=== PATIENT | female | born 1955 | race Caucasian/White ===

== ENCOUNTER → 2018-07-18 15:34 | Outpatient (CLI) | payer OTHER, SELFPAY ==
--- NOTE | 2018-07-18 15:37 | BI_ITS ---
MAMMOGRAPHY - BILATERAL SCREENING REASON FOR EXAM: Female, 62 years old. Routine annual screening examination. PERTINENT HISTORY: Sister with breast cancer. History of right breast implant. TECHNIQUE: Digital bilateral breast chitra (3D mammographic acquisition) in the CC and MLO projections. 2-D mediolateral oblique (MLO) and craniocaudad (CC) views of both breasts were obtained. CAD: Full Field Digital Mammography with Computer Added Detection was performed. COMPARISON: Comparison is made with prior study dated July 17, 2017 and July 12, 2016. FINDINGS: Breast Composition: The breasts are heterogeneously dense, which may obscure small masses. There are no dominant masses or suspicious calcifications. Stable appearance of the right breast implant. No other significant abnormalities are identified. There has been no significant change since the prior study. BI/SCREENING MAMM (CAD), BILAT IMPRESSION: Stable bilateral screening mammogram. Yearly follow-up mammogram recommended. (A) ASSESSMENT CATEGORY: BIRADS Category 2: Benign. A letter regarding these results will be sent to the patient by the facility within 30 days. Approximately 10% of breast cancers are not detected by mammography. A normal mammogram should not delay biopsy of a clinically suspicious abnormality. [id number] Electronically Signed: Adriano De La Cruz MD at 8:40 EST Tel [phone], Service support ,
== END ==
PROVIDERS: Family Provider Family Medicine; PCP Family Medicine; Referring Provider Obstetrics & Gynecology; Visit Provider Obstetrics & Gynecology
DX: Z12.31 Encounter for screening mammogram for malignant neoplasm of breast (principal)
CPT/HCPCS: 77063; 77067

== ENCOUNTER → 2019-07-25 10:13 | Outpatient (CLI) | payer OTHER, SELFPAY ==
--- NOTE | 2019-07-25 10:26 | BI_ITS ---
MAMMOGRAPHY - BILATERAL SCREENING REASON FOR EXAM: Female, 63 years old. Routine annual screening examination. PERTINENT HISTORY: Sister with breast cancer. Bilateral breast implants. Prior rupture of the left breast. TECHNIQUE: Digital bilateral breast tatiana (3D mammographic acquisition) in the CC and MLO projections. 2-D mediolateral oblique (MLO) and craniocaudad (CC) views of both breasts were obtained. CAD: Full Field Digital Mammography with Computer Added Detection was performed. COMPARISON: Comparison is made with prior study dated July 18, 2018. FINDINGS: Breast Composition: The breasts are heterogeneously dense, which may obscure small masses. There are no dominant masses or suspicious calcifications. The right breast implant is unremarkable. The left breast implant is not seen at this time. No other significant abnormalities are identified. There has been no significant change since the prior study. BI/SCREEN MAMM (CAD) W/TATIANA BILAT IMPRESSION: Stable bilateral screening mammogram. Yearly follow-up mammogram recommended. (A) ASSESSMENT CATEGORY: BIRADS Category 2: Benign. A letter regarding these results will be sent to the patient by the facility within 30 days. Approximately 10% of breast cancers are not detected by mammography. A normal mammogram should not delay biopsy of a clinically suspicious abnormality. [id number] Electronically Signed: Adriano De La Cruz, at 14:25 EST , Service support ,
== END ==
PROVIDERS: Family Provider Family Medicine; PCP Family Medicine; Referring Provider Obstetrics & Gynecology; Visit Provider Obstetrics & Gynecology
DX: Z12.31 Encounter for screening mammogram for malignant neoplasm of breast (principal)
CPT/HCPCS: 77063; 77067

== ENCOUNTER → 2020-07-27 16:12 | Outpatient (CLI) | payer OTHER, SELFPAY ==
--- NOTE | 2020-07-27 16:14 | BI_ITS ---
MAMMOGRAPHY - BILATERAL SCREENING REASON FOR EXAM: Female, 64 years old. Routine annual screening examination. PERTINENT HISTORY: Breast survey exam TECHNIQUE: Digital bilateral breast tatiana (3D mammographic acquisition) in the CC and MLO projections. 2-D mediolateral oblique (MLO) and craniocaudad (CC) views of both breasts were obtained. CAD: Full Field Digital Mammography with Computer Added Detection was performed. COMPARISON: Previous mammogram obtained on 07/25/2019 FINDINGS: Breast Composition: Dense There are no dominant masses or suspicious calcifications. No other significant abnormalities are identified. The patient has bilateral breast implants however 1 breast implant on the left as burst and is not visible on these mammogram images. The breast implant on the right is expanded. BI/SCREEN MAMM (CAD) W/TATIANA BILAT IMPRESSION: Stable bilateral screening mammogram. Yearly follow-up mammogram recommended. (A) ASSESSMENT CATEGORY: BIRADS Category 2: Benign. A letter regarding these results will be sent to the patient by the facility within 30 days. Approximately 10% of breast cancers are not detected by mammography. A normal mammogram should not delay biopsy of a clinically suspicious abnormality. [id number] Electronically Signed: Herve Zapien, at 17:51 EST Tel , Service support ,
== END ==
PROVIDERS: PCP Family Medicine; Referring Provider Student in an Organized Health Care Education/Training Program; Visit Provider Student in an Organized Health Care Education/Training Program
DX: Z12.31 Encounter for screening mammogram for malignant neoplasm of breast (principal)
CPT/HCPCS: 77063; 77067

== ENCOUNTER → 2020-08-05 15:53 | Outpatient (CLI) | payer OTHER, SELFPAY ==
--- NOTE | 2020-08-05 16:12 | BD_ITS ---
STUDY: DUAL ENERGY X-RAY ABSORPTIOMETRY / DXA REASON FOR EXAM: Female, 64 years old. Pat is unsure of meredith age. Pat is 134.2# and 65 and quot; a loss of 2'' per pat. Currently on premprim cream. Takes 500 mg of calcium and a multi-vit. Does a little to no exercise. Hx of a right hip replacement. TECHNIQUE: Bone Mineral Density (BMD) measurements of lumbar spine and left hip were obtained. COMPARISON: Comparison is made with prior study dated 01/26/2009. FINDINGS: Lumbar Spine (L1-L4): g/cm2 (0.795) / T-score (-3.2) / Z-score (-1.7) Findings are suggestive of osteoporosis with a high fracture risk. Increased thoracic kyphosis. Left Femur Total: g/cm2 (0.702) / T-score (-2.4) / Z-score (-1.3) Left Femoral Neck: g/cm2 (0.737) / T-score (-2.2) / Z-score (-0.8) The T-Scores on the most recent prior examination were: Lumbar Spine (L1-L4): There has been worsening of bone density since the previous examination. Left Femur Total: which represents a worsening of 26.6%. BD/Dexa Bone Density Study IMPRESSION: The patient is considered osteoporotic as outlined below according to World Michael Organization (WHO) criteria with a high fracture risk. There has been worsening of bone density since the previous examination. Reference Information: The T-score is the number of standard deviations above or below the standard which is normal for young adults at their peak bone mineral density. The World Health Organization (WHO) interprets the T-scores as follows: Above -1 Normal bone density Between -1 and -2.5 Osteopenia Equal to / or below -2.5 Osteoporosis As a practical clinical guideline, osteopenia may be graded as follows: Mild -1 through -1.5 Moderate -1.6 through -2.0 Severe -2.1 through -2.4 The Z-score is the number of standard deviations above or below age-matched controls. A Z-score of less than -1.5 would be considered abnormal. References: 1. NIH Osteoporosis and Related Bone Diseases www osteo.org 2. International Society for Clinical Densitometry www iscd.org 3. National Osteoporosis Foundation www nof.org Electronically Signed: Adriano De La Cruz, at 8:40 EST , Service support ,
== END ==
PROVIDERS: PCP Family Medicine; Referring Provider Student in an Organized Health Care Education/Training Program; Visit Provider Student in an Organized Health Care Education/Training Program
DX: M81.0 Age-related osteoporosis without current pathological fracture (principal); Z78.0 Asymptomatic menopausal state; Z96.641 Presence of right artificial hip joint
CPT/HCPCS: 77080

== ENCOUNTER → 2020-10-18 10:39 | Outpatient (CLI) | payer OTHER, SELFPAY ==
[2020-10-18 12:09] LABS: AST(SGOT) 32 U/L (15-37); Alanine Aminotransfer ALT/SGPT 48 U/L (13-56); Albumin, Serum 3.8 g/dL (3.2-5.0); Alkaline Phosphatase 82 U/L (45-117); Anion Gap 6 (5-15); BUN 14 mg/dL (7-18); BUN/Creat Ratio 16.7 RATIO (10-20); Calcium,Total 8.7 mg/dL (8.5-10.1); Chloride 106 mmol/L (98-107); Creatinine, Serum 0.84 mg/dL (0.55-1.02); EST Glomerular Filtration Rate 73 mL/min (>60); Est Glom Filt Rate - Afr Amer 88 mL/min (>60); Globulin 3.9 g/dL (2.2-4.2); Glucose 63 mg/dL (74-106); Potassium 4.1 mmol/L (3.5-5.1); Protein, Total 7.7 g/dL (6.4-8.2); Sodium Level 138 mmol/L (136-145); Vitamin D,25 Hydroxy 28.2 ng/mL
== END ==
PROVIDERS: PCP Family Medicine; Visit Provider Student in an Organized Health Care Education/Training Program
DX: M81.0 Age-related osteoporosis without current pathological fracture (principal)
CPT/HCPCS: 36415; 80053; 82306

== ENCOUNTER → 2021-02-08 08:52 | Outpatient (CLI) | payer OTHER, SELFPAY ==
--- NOTE | 2021-02-08 09:00 | US_ITS ---
STUDY: ULTRASOUND BREAST - RIGHT REASON FOR EXAM: Female, 65 years old. Palpable lump in the right breast. History of bilateral breast implants. TECHNIQUE: Axial and longitudinal images of the RIGHT breast were performed with a high resolution ultrasound transducer. # OF IMAGES: 13 COMPARISON: Comparison is made with prior mammogram done earlier today. FINDINGS: RIGHT Breast: The palpable abnormality corresponds to a 1.1 cm x 1.3 cm x 0.4 cm well-defined hypodense solid nodule at the 9:30 position the breast at 3 cm from the nipple. This most likely represents a small benign-appearing lymph node. US/Breast Limited Unilateral IMPRESSION: The palpable abnormality corresponds to 1.1 cm x 1.3 cm x 0.4 cm well-defined hypodense solid nodule at the 9:30 position of the breast at 3 cm from the nipple. This appears to be a benign appearing lymph node. ASSESSMENT CATEGORY: BIRADS Category 2: Benign. A letter regarding these results will be sent to the patient by the facility within 30 days. Electronically Signed: Adriano De La Cruz MD at 10:34 EDT , Service support ,
--- NOTE | 2021-02-08 09:00 | BI_ITS ---
MAMMOGRAPHY - UNILATERAL DIAGNOSTIC: RIGHT BREAST REASON FOR EXAM: Female, 65 years old. Right breast lump. PERTINENT HISTORY: Sister with breast cancer. Bilateral breast implants and prior rupture of the left breast implant. TECHNIQUE: Digital unilateral breast chitra (3D mammographic acquisition) in the CC and MLO projections. 2-D mediolateral oblique (MLO) and craniocaudad (CC) views of both breasts were obtained. CAD: Full Field Digital Mammography with Computer Added Detection was performed. COMPARISON: Comparison is made with prior study dated 07/27/2020 and 07/25/2019. FINDINGS: Breast Composition: The breasts are heterogeneously dense, which may obscure small masses. There are no dominant masses or suspicious calcifications. Stable appearance of the right breast implant. No other significant abnormalities are identified. There has been no significant change since the prior study. BI/DIAG MAMM W/CAD, UNILAT IMPRESSION: Stable unilateral diagnostic mammogram. With the patient''s history of a palpable lump in the right breast, correlation with ultrasound is recommended. ASSESSMENT CATEGORY: BIRADS Category 0: Incomplete. Need additional imaging evaluation. A letter regarding these results will be sent to the patient by the facility within 30 days. Approximately 10% of breast cancers are not detected by mammography. A normal mammogram should not delay biopsy of a clinically suspicious abnormality. Electronically Signed: Adriano De La Cruz MD at 11:10 EDT , Service support ,
== END ==
PROVIDERS: PCP Family Medicine; Referring Provider Student in an Organized Health Care Education/Training Program; Visit Provider Student in an Organized Health Care Education/Training Program
DX: N63.11 Unspecified lump in the right breast, upper outer quadrant (principal); Z98.82 Breast implant status; Z80.3 Family history of malignant neoplasm of breast
CPT/HCPCS: 76642; 77061; 77065; G0279

== ENCOUNTER → 2021-07-25 13:12 | Outpatient (CLI) | payer OTHER, SELFPAY ==
--- NOTE | 2021-07-25 13:14 | BI_ITS ---
MAMMOGRAPHY - BILATERAL SCREENING 3-D TOMOSYNTHESIS REASON FOR EXAM: Female, 65 years old. SCREENING PERTINENT HISTORY: No significant family history. Implants TECHNIQUE: 2-D mammograms and 3-D Tomosynthesis of the breast (s) were performed, along with implant displaced views. CAD was performed. COMPARISON: 07/27/2020 FINDINGS: The breast composition is composed of scattered fibroglandular density. Scattered benign calcifications are seen. No dense spiculated masses or suspicious microcalcifications are identified. No architectural distortion is identified. There is no skin thickening or retraction. There has been no significant change since the prior study. Right breast implant is free of complication, there has apparently been previous rupture of the left breast implant which is not visualized on this current study BI/SCRN MAMM (CAD)W/TATIANA BILAT IMPRESSION: No mammographic signs of malignancy. Routine yearly mammograms recommended. ASSESSMENT CATEGORY: BIRADS Category 2: Benign. A letter regarding these results will be sent to the patient by the facility within 30 days. FOLLOW UP RECOMMENDATION: Yearly follow up mammogram recommended. (A) Approximately 10% of breast cancers are not detected by mammography. A normal mammogram should not delay biopsy of a clinically suspicious abnormality. Electronically Signed: Juna Draper MD at 15:24 EST , Service support ,
== END ==
PROVIDERS: PCP Family Medicine; Referring Provider Student in an Organized Health Care Education/Training Program; Visit Provider Student in an Organized Health Care Education/Training Program
DX: Z12.31 Encounter for screening mammogram for malignant neoplasm of breast (principal)
CPT/HCPCS: 77063; 77067

== ENCOUNTER 2021-09-29 13:59 | Outpatient (CLI) | payer OTHER, SELFPAY ==
[2021-09-29 16:47] LABS: Vitamin D,25 Hydroxy 53.3 ng/mL
== END 2021-09-29 23:59 | disposition short-term general hospital (02) ==
PROVIDERS: PCP Family Medicine; Visit Provider Student in an Organized Health Care Education/Training Program
DX: M81.0 Age-related osteoporosis without current pathological fracture (principal)
CPT/HCPCS: 36415; 82306

== ENCOUNTER → 2022-06-02 | Outpatient (CLI) | payer OTHER, SELFPAY ==
[2022-06-02 09:55] LABS: Absolute Lymphocyte Count 1.33 X10^3/uL (0.83-4.51); Basophil# 0.05 X10^3/uL; Basophil% 1.3 % (0-1); Eosinophil# 0.12 X10^3/uL; Eosinophils% 3.1 % (0-5); Hematocrit 41.1 % (37-47); Hemoglobin 13.8 g/dL (12.0-15.0); Lymphocyte # 1.33 X10^3/ul (0.83-4.51); Mean Corp Hgb Conc 33.6 g/dL (32-36); Mean Corpuscular Hgb 30.2 pg (27.0-32.0); Mean Corpuscular Volume 89.9 fL (81-99); Mean Platelet Vol. 11.1 fl (6.2-12.0); Monocyte# 0.41 X10^3/uL; Monocyte% 10.5 % (0-10); NRBC Flagged by Analyzer 0 % (0-5); Neutrophil # 1.99 X10^3/uL (2.7-7.7); Neutrophil % 50.8 % (47-70); Platelet Count 330 K/mm3 (150-450); RBC Distribution Width CV 12.6 % (11.6-14.6); RBC Distribution Width SD 41.4 fl (35.1-43.9); Red Blood Count 4.57 M/mm3 (4.2-5.4); White Blood Count 3.9 K/mm3 (4.4-11.0)
[2022-06-02 10:17] LABS: Hemoglobin A1c 5.2 % (3.8-5.6)
[2022-06-02 10:22] LABS: Vitamin D,25 Hydroxy 38.7 ng/mL
[2022-06-02 10:51] LABS: ALB/GLOB Ratio 0.9 RATIO (0.9-2.4); AST(SGOT) 31 U/L (15-37); Alanine Aminotransfer ALT/SGPT 51 U/L (13-56); Albumin, Serum 3.7 g/dL (3.2-5.0); Alkaline Phosphatase 83 U/L (45-117); Anion Gap 8 (5-15); BUN 12 mg/dL (7-18); BUN/Creat Ratio 14.9 RATIO (10-20); Calcium,Total 8.8 mg/dL (8.5-10.1); Chloride 107 mmol/L (98-107); Cholesterol 199 mg/dL (200); Creatinine, Serum 0.81 mg/dL (0.55-1.02); EST Glomerular Filtration Rate 76 mL/min (>60); Est Glom Filt Rate - Afr Amer 92 mL/min (>60); Globulin 3.9 g/dL (2.2-4.2); Glucose 91 mg/dL (74-106); High Density Lipoprotein 53 mg/dL; Protein, Total 7.6 g/dL (6.4-8.2); Sodium Level 138 mmol/L (136-145); Thyroid Stim Hormone (TSH) 1.43 uIU/mL (0.358-3.74); Triglycerides 78 mg/dL; Very Low Density Lipoprotein 16 mg/dL (5-40)
== END | disposition home or self-care (01) ==
LOC: MFPLAB 09:08
PROVIDERS: PCP Family Medicine; Referring Provider Family Medicine; Visit Provider Family Medicine
DX: Z00.00 Encounter for general adult medical examination without abnormal findings (principal); Z13.0 Encounter for screening for diseases of the blood and blood-forming organs and certain disorders involving the immune mechanism; Z13.1 Encounter for screening for diabetes mellitus; Z13.220 Encounter for screening for lipoid disorders; Z13.29 Encounter for screening for other suspected endocrine disorder; M81.0 Age-related osteoporosis without current pathological fracture
CPT/HCPCS: 36415; 80053; 80061; 82306; 83036; 84443; 85025

== ENCOUNTER → 2022-11-07 | Outpatient (CLI) | payer OTHER, SELFPAY ==
--- NOTE | 2022-11-07 15:21 | BI_ITS ---
MAMMOGRAPHY - BILATERAL SCREENING REASON FOR EXAM: Female, 67 years old. Routine annual screening examination. PERTINENT HISTORY: Sister with breast cancer. Implants have been removed as compared to prior study. TECHNIQUE: Digital bilateral breast tatiana (3D mammographic acquisition) in the CC and MLO projections. 2-D mediolateral oblique (MLO) and craniocaudad (CC) views of both breasts were obtained. CAD: Full Field Digital Mammography with Computer Added Detection was performed. COMPARISON: Comparison is made with prior study July 25, 2021 and February 08, 2021. FINDINGS: Breast Composition: The breasts are extremely dense, which lowers the sensitivity of mammography. There are no dominant masses or suspicious calcifications. Since prior study, left breast implant has been removed. No other significant abnormalities are identified. There has been no significant change since the prior study. BI/SCRN MAMM (CAD)W/TATIANA BILAT IMPRESSION: Stable bilateral screening mammogram. Yearly follow-up mammogram recommended. (A) ASSESSMENT CATEGORY: BIRADS Category 2: Benign. A letter regarding these results will be sent to the patient by the facility within 30 days. Approximately 10% of breast cancers are not detected by mammography. A normal mammogram should not delay biopsy of a clinically suspicious abnormality. [id number] Electronically Signed: Adriano De La Cruz MD at 17:37 EST ,
--- NOTE | 2022-11-07 15:30 | BD_ITS ---
STUDY: DUAL ENERGY X-RAY ABSORPTIOMETRY / DXA REASON FOR EXAM: Female, 67 years old. [id number] TECHNIQUE: Bone Mineral Density (BMD) measurements of lumbar spine and left hip were obtained. COMPARISON: Comparison is made with prior study of August 05, 2020. FINDINGS: Lumbar Spine (L1-L4): g/cm2 (0.663) / T-score (-3.5) / Z-score (-1.7) Findings are suggestive of osteoporosis with a high fracture risk. Left Femur Total: g/cm2 (0.650) / T-score (-2.4) / Z-score (-1.1) Left Femoral Neck: g/cm2 (0.600) / T-score (-2.2) / Z-score (-0.7) The T-Scores on the most recent prior examination were: Lumbar Spine (L1-L4): There has been worsening of bone density since the previous examination. Left Femur Total: which represents an improvement of 0.8%. BD/Dexa Bone Density Study IMPRESSION: The patient is considered osteoporotic as outlined below according to World Michael Organization (WHO) criteria with a high fracture risk Reference Information: The T-score is the number of standard deviations above or below the standard which is normal for young adults at their peak bone mineral density. The World Health Organization (WHO) interprets the T-scores as follows: Above -1 Normal bone density Between -1 and -2.5 Osteopenia Equal to / or below -2.5 Osteoporosis As a practical clinical guideline, osteopenia may be graded as follows: Mild -1 through -1.5 Moderate -1.6 through -2.0 Severe -2.1 through -2.4 The Z-score is the number of standard deviations above or below age-matched controls. A Z-score of less than -1.5 would be considered abnormal. References: 1. NIH Osteoporosis and Related Bone Diseases www osteo.org 2. International Society for Clinical Densitometry www iscd.org 3. National Osteoporosis Foundation www nof.org Electronically Signed: Adriano De La Cruz MD at 16:57 EST ,
== END | disposition home or self-care (01) ==
PROVIDERS: PCP Family Medicine; Visit Provider Family Medicine
DX: Z12.31 Encounter for screening mammogram for malignant neoplasm of breast (principal); M81.0 Age-related osteoporosis without current pathological fracture; Z80.3 Family history of malignant neoplasm of breast
CPT/HCPCS: 77063; 77067; 77080

== ENCOUNTER → 2024-07-22 | Outpatient (CLI) | payer MEDICARE, SELFPAY ==
[2024-07-22 11:36] LABS: AST(SGOT) 25 U/L (15-37); Alanine Aminotransfer ALT/SGPT 30 U/L (13-56); Albumin, Serum 3.9 g/dL (3.2-5.0); Alkaline Phosphatase 74 U/L (45-117); Anion Gap 3 (5-15); BUN 19 mg/dL (7-18); BUN/Creat Ratio 23.7 RATIO (10-20); Calcium,Total 9.2 mg/dL (8.5-10.1); Chloride 104 mmol/L (98-107); EST Glomerular Filtration Rate 76 mL/min (>60); Est Glom Filt Rate - Afr Amer 92 mL/min (>60); Globulin 3.9 g/dL (2.2-4.2); Glucose 82 mg/dL (74-106); Lipase 62 U/L (13-75); Potassium 4.2 mmol/L (3.5-5.1); Protein, Total 7.8 g/dL (6.4-8.2); Sodium Level 134 mmol/L (136-145)
[2024-07-23 15:08] LABS: Deamidated Gliadin IgA >150 units (0-19); Deamidated Gliadin IgG 113 units (0-19); Endomysial Antibody IgA Positive (Negative); Immunoglobulin A 315 mg/dL (87-352); t-Transglutaminase IgA 53 U/mL (0-3)
[2024-07-27 13:06] LABS: Beef <0.10 kU/L (Class 0); Chocolate <0.10 kU/L (Class 0); Codfish <0.10 kU/L (Class 0); Corn <0.10 kU/L (Class 0); Egg, Whole <0.10 kU/L (Class 0); Milk (Cow) <0.10 kU/L (Class 0); Mussels <0.10 kU/L (Class 0); Peanut <0.10 kU/L (Class 0); Pork <0.10 kU/L (Class 0); Salmon <0.10 kU/L (Class 0); Shrimp <0.10 kU/L (Class 0); Soybean <0.10 kU/L (Class 0); Tuna <0.10 kU/L (Class 0); Wheat <0.10 kU/L (Class 0)
== END | disposition home or self-care (01) ==
PROVIDERS: PCP Nurse Practitioner Adult Health; Referring Provider Student in an Organized Health Care Education/Training Program; Visit Provider Student in an Organized Health Care Education/Training Program
DX: K90.0 Celiac disease (principal)
CPT/HCPCS: 36415; 80053; 82784; 83516; 83690; 86003; 86005; 86255

== ENCOUNTER 2024-09-16 11:44 | Day surgery (SDC) | payer MEDICARE, SELFPAY ==
[2024-09-16] VITALS (8 sets, daily range): BP systolic 98–122; BP diastolic 74–84; PULSE 73–88; RESP 16–18; TEMP 36.4–37; O2SAT 95–100; BMI 20.2
--- NOTE | 2024-09-16 13:00 | EGD_PTH ---
PATIENT: RAMAN CLAYTON LOC: EN U#:[id number] AGE/SX: 68/F ROOM: RE09/16/[address]: Dr. Marcelo Wood DO : 1955 BED: DIS: 09/16/2024 SPEC #: [id number] RECD: 09/16/24 14:11 STATUS: REJI ALIE #: [id number] MIRIAM: 09/16/24 13:[address]: Marcelo Wood DEPT: SURGICAL PATHOLOGY RECD BY: Alyssa Storm ENTERED: 09/17/24 09:55 SP TYPE: EGD BIOPSY OT DR: ELIUD DE LA ROSA Tissues: Duodenum, NOS Procedures: Surgery Specimen Level IV HEADER OPERATION: EGD with biopsy and dilatation PRE-OP DIAGNOSIS: Celiac disease TISSUE SUBMITTED: Duodenum biopsy MICROSCOPIC DIAGNOSIS Duodenum, biopsy: Fragments of duodenal mucosa with changes suggestive of celiac disease. See microscopic description and comment. SJ 09/18/2024 COMMENT Correlation with clinical, laboratory, endoscopic findings and appropriate follow up are necessary. MICROSCOPIC DESCRIPTION Slides are reviewed. The specimen shows fragments of duodenal mucosa with mild blunting of villi, mild increased of intraepithelial lymphocytes and moderate chronic inflammatory cell infiltrate in the lamina propria. The findings are suggestive of celiac disease. GROSS DESCRIPTION Received in fixative is one container labeled with the patient's name and designated Duodenum biopsy. The specimen consists of multiple irregular fragments of light pastor soft tissue that in aggregate measure 1.8 x 0.3 x 0.3 cm. The specimen is totally submitted in one cassette. 09/17/2024 TC:3 CPT:73396
--- NOTE | 2024-09-16 13:10 | PRE.ANES_ITS ---
ASA Classification* ASA Classification ASA Classification: 2 Assessment & Plan Anesthesia* Anesthesia Assessment Anesthesia Assessment: Discussed sedation and/or anesthesia options, risks, benefits, and alternatives with patient/parents/legal guardian/POA. Questions invited. The patient/parents/legal guardian/POA seems to understand and agrees to proceed with anesthesia plan. Reviewed the physical assessment, medical history, allergy history and patient home medications list prior to surgery/procedure/anesthetic and documented any changes. Performed airway and anesthesia risk assessments. Anesthesia Type Anesthesia Type: MAC History Source History Obtained from:: Patient and Chart Anesthesia Focused Assessment* Temperature: 97.5 F Pulse Rate: 73 Blood Pressure: 122/84 Respiratory Rate: 18 Pulse Ox: 100 Oxygen Delivery Method: Room Air Airway Assessment Mouth opens: >3 cm Mallampati Score: III Teeth Condition: Caps/Crowns (Patient has a cap on #8. It is tight. Remaining teeth are tight as well.) Neck Range of motion (ROM): Full ROM Focused Labs Anesthesia Preop lab: CBC WBC 3.9 K/mm3 (4.4-11.0) L 06/02/22 09:09 RBC 4.57 M/mm3 (4.2-5.4) 06/02/22 09:09 Hgb 13.8 g/dL (12.0-15.0) 06/02/22 09:09 Hct 41.1 % (37-47) 06/02/22 09:09 Plt Count 330 K/mm3 (150-450) 06/02/22 09:09 CHEMISTRY Potassium 4.2 mmol/L (3.5-5.1) 07/22/24 10:17 Sodium 134 mmol/L (136-145) L 07/22/24 10:17 BUN 19 mg/dL (7-18) H 07/22/24 10:17 Creatinine 0.80 mg/dL (0.55-1.02) 07/22/24 10:17 Glucose 82 mg/dL (74-106) 07/22/24 10:17 TSH 1.43 uIU/mL (0.358-3.74) 06/02/22 09:09 COAG Pre-Assessment Diagnosis/Proposed Procedure Planned Operative Procedure(s): EGD Anesthesia History 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 When Was Last Pacemaker Check QUESTION #4 FULL TEXT: You/Your Family Experience fever (hyperthermia) with Anesthesia Last Oral Intake Last Oral intake: Last Oral Intake NPO since 08:30 09/16/24 12:31 Meds taken in AM with sips of No 09/16/24 12:31 water? Meds patient instructed to take am of surgery Any additional information?: Yes NPO since: 08:30 (Patient had tea at 8:30 AM.) Meds taken in AM with sips of water?: No PONV PONV - computer numerical control programmer: PONV - computer numerical control programmer Female Yes 09/15/24 15:53 HX of Motion Sickness Yes 09/15/24 15:53 HX of N/V After Surgery Yes 09/15/24 15:53 Non-Smoker Yes 09/15/24 15:53 Duration of Surgery greater No 09/15/24 15:53 than 60 minutes Number of Risk Factors 4 09/15/24 15:53 PONV Score Severe Risk 09/15/24 15:53 Height & Weight Height & Weight: Anesthesia: Height & Weight Height 5 ft 6 in 09/16/24 12:31 Weight: 57 kg 09/16/24 12:31 Body Mass Index (BMI) 20.2 09/16/24 12:31 Respiratory Assessment Respiratory Assessment - computer numerical control programmer: Respiratory Tract Infection Hx - computer numerical control programmer Hx Respiratory Tract Infection No 09/15/24 15:53 STOP Sleep Apnea STOP Sleep Apnea - computer numerical control programmer: STOP Sleep Apnea - computer numerical control programmer Hx Hypertension No 09/15/24 15:53 Hx Sleep Apnea No 09/15/24 15:53 CPAP BIPAP Do you snore loudly (louder Yes 09/15/24 15:53 than talking or can be heard Do you often feel tired/ No 09/15/24 15:53 fatigued/ sleepy during daytime? Has anyone observed you stop No 09/15/24 15:53 breathing during sleep? STOP Results Negative 09/15/24 15:53 QUESTION #5 FULL TEXT : Do you snore loudly (louder than talking or can be heard through closed doors)? Tobacco Use History Tobacco Use History - computer numerical control programmer: Tobacco Use History - computer numerical control programmer Tobacco Use Smoking Status Never smoker 09/15/24 15:53 Hx Tobacco Use No 09/15/24 15:53 Years Smoking Packs Smoked per Day Smoking Cessation Date was within the last 15 years Hx Smoking Cessation Date Hx Smoking Cessation Counseling Hematologic Medial History Hematologic Hx - computer numerical control programmer: Hematologic Medical Hx - naturopathic doctor Hx of Blood Transfusion No 09/15/24 15:53 Hx of Transfusion in last 3 No 09/15/24 15:53 Months Date of Last Transfusion (if within last 3 months) Ever experience any problems No 09/15/24 15:53 with transfusion(s)? Specify any problems Hx of Preganancy in last 3 No 09/15/24 15:53 Months Nurse Filling Out Transfusion DSCHRIBER 09/15/24 15:53 & Questions: Date: 09/15/24 09/15/24 15:53 Time: 15:54 09/15/24 15:53 Patient unable to answer at this time (ie. confused, unrespo /Reproduction History /Reproductive History - computer numerical control programmer: /Reproductive Hx- computer numerical control programmer Hx Now No 09/15/24 15:53 Gestational Age (in weeks): EDC: Hx Hx Para Hx Section SAB No 09/15/24 15:53 PFSH Medical History Wears glasses Wears contact lenses Post-menopausal Alcohol use Arthritis Low iron Non-smoker History of echocardiogram History of stress test Panic disorder Panic attacks Neuropathy Brain fog ADD (attention deficit disorder) Abdominal pain Osteoporosis Celiac disease Back pain Osteoarthritis Anxiety Home Medications ?Medication ?Instructions ?Recorded ?Last Taken ?Type multivitamin 1 tab PO DAILY 02/16/21 Unknown History calcium carbonate 500 mg PO QDAY 07/01/24 Unknown History BPC-157 1 cap PO DAILY 09/15/24 Unknown History NEUROMAG 144 mg PO DAILY 09/15/24 Unknown History ascorbic acid (vitamin C) 1,000 mg 1 g PO DAILY 09/15/24 Unknown History tablet (C-1000) vitamin B complex (Complex B-100 1 tab PO DAILY 09/15/24 Unknown History tablet,extended release) vitamin D3 250 mcg (10,000 1 cap PO DAILY 09/15/24 Unknown History unit)-vitamin K2 45 mcg capsule vitamin E 268 mg (400 unit) capsule 268 mg PO DAILY 09/15/24 Unknown History Allergy/AdvReac Type Severity Reaction Status Date / Time codeine AdvReac Mild gi upset Verified 09/16/24 12:30 meperidine (From Demerol) AdvReac Mild GI upset Verified 09/16/24 12:30 Family History Sister CAD (coronary artery disease) Cancer Breast cancer Mother Rheumatoid arthritis Surgical History Hx of colonoscopy Hx of breast surgery History of hysterectomy History of arthroscopic surgery of elbow History of revision of total hip arthroplasty History of right hip replacement History of appendectomy History of bilateral breast implants Social History Smoking Status: Never smoker alcohol intake: current alcohol intake frequency: a few times a week Alcohol type: wine substance use type: does not use what type of physical activity do you participate in: swimming and aerobics frequency: 3-4 times per week Review of Systems (Anesthesia) ROS Narrative System reviewed and no additional complaints, except as documented.
--- NOTE | 2024-09-16 13:12 | HP.PCM_ITS ---
HPI - General General Date of Admission: 09/16/24 Date of Service: 09/16/24 Chief Complaint: Celiac disease HPI Narrative RAMAN CLAYTON, is a 68 F who presents for an upper endoscopy for surveillance of her Celiac disease that has become refractory to gluten free diet. Over the past couple of years pt has been struggling with her health w/ anxiety, epigastric pain and overall malaise. Over two years she has had a 15lbs weight loss with inability to gain weight back. She is pretty active and has to eat a lot of protein drinks to stay a stable weight. She has been to naturopathic physicians and had numerous blood testing done which showed an elevation in the TTg IgA as well as anti gliadin antibody. Since then she has been avoiding gluten which has been helpful for her symptoms. She did have a recent colonoscopy with no abnormalities. She has never had an EGD. She has not seen a landscape gardener for her Celiac. She denies constipation, diarrhea, blood in her stool, hearbturn or nausea. [facility] Medical History Wears glasses Wears contact lenses Post-menopausal Alcohol use Arthritis Low iron Non-smoker History of echocardiogram History of stress test Panic disorder Panic attacks Neuropathy Brain fog ADD (attention deficit disorder) Abdominal pain Osteoporosis Celiac disease Back pain Osteoarthritis Anxiety Home Medications ?Medication ?Instructions ?Recorded ?Last Taken ?Type multivitamin 1 tab PO DAILY 02/16/21 Unknown History calcium carbonate 500 mg PO QDAY 07/01/24 Unknown History BPC-157 1 cap PO DAILY 09/15/24 Unknown History NEUROMAG 144 mg PO DAILY 09/15/24 Unknown History ascorbic acid (vitamin C) 1,000 mg 1 g PO DAILY 09/15/24 Unknown History tablet (C-1000) vitamin B complex (Complex B-100 1 tab PO DAILY 09/15/24 Unknown History tablet,extended release) vitamin D3 250 mcg (10,000 1 cap PO DAILY 09/15/24 Unknown History unit)-vitamin K2 45 mcg capsule vitamin E 268 mg (400 unit) capsule 268 mg PO DAILY 09/15/24 Unknown History Allergy/AdvReac Type Severity Reaction Status Date / Time codeine AdvReac Mild gi upset Verified 09/16/24 12:30 meperidine (From Demerol) AdvReac Mild GI upset Verified 09/16/24 12:30 Family History Sister CAD (coronary artery disease) Cancer Breast cancer Mother Rheumatoid arthritis Surgical History Hx of colonoscopy Hx of breast surgery History of hysterectomy History of arthroscopic surgery of elbow History of revision of total hip arthroplasty History of right hip replacement History of appendectomy History of bilateral breast implants Social History Smoking Status: Never smoker alcohol intake: current alcohol intake frequency: a few times a week Alcohol type: wine substance use type: does not use what type of physical activity do you participate in: swimming and aerobics frequency: 3-4 times per week ROS Constitutional Constitutional: Denies fatigue, fever(s), poor appetite, weight gain or weight loss Gastrointestinal Gastrointestinal: Denies belching, bloating, change in bowel habits, change in stool character, chewing difficulty, coffee ground emesis, constipation, cramping, diarrhea, dyspepsia, dysphagia, early satiety, excessive flatus, fecal incontinence, heartburn, hematemesis, hematochezia, hemorrhoids, loose stools, melena, nausea, odynophagia, rectal bleeding, tenesmus, vomiting or weight changes Vital Signs Vital Signs Vital Signs: 09/16/24 12:31 09/16/24 12:31 Temperature 97.5 F L Temperature Source Temporal Pulse Rate 73 Respiratory Rate 18 Respiratory Pattern Normal Blood Pressure 122/84 H Blood Pressure Mean 96 Blood Pressure Source Monitor Blood Pressure Position Semi-Fowlers Blood Pressure Location Right Arm Pulse Ox 100 Oxygen Delivery Method Room Air Weight Weight: 125 lb 10.616 oz Body Mass Index (BMI) 20.2 Physical Exam Const alert, oriented x3, no apparent distress and healthy appearing General Appearance: cooperative GI normal to inspection, nondistended, normoactive bowel sounds, soft to palpation, non-tender and non-distended Percussion: normal to percussion Rectal Exam: deferred Assessment & Plan Assessment/Plan (1) Celiac disease: PLAN: Assessment and Plan (1) Celiac disease: Status: Acute Plan: This is a 68 yo female presenting today for establishment after biochemical work up revealed elevated antibodies for celiac disease. She has been struggling with her health for a few years now with 15lb unintentional weight loss and epigastric pain. Pt will need to under go upper endoscopy to assess her GI tract and for biopsy. She will continue all avoidance of gluten. I will send referral to nutrition for guidance. Will order blood work w/ celiac panel, CMP, lipase and food allergens. She will f/u in 3 months.
--- NOTE | 2024-09-16 14:17 | PCM.POST.ANE ---
Anesthesia: Postop Eval I Current Vital Signs Temperature: 97.5 F Pulse Rate: 77 Blood Pressure: 105/82 Respiratory Rate: 16 Pulse Ox: 97 Oxygen Delivery Method: Room Air Assessment Airway patent: Yes Spontaneous unlabored respirations: Yes Mental status: Awake and Calm nausea: No Vomiting: No Anesthesia Complication: No Fluid Hydration Crystalloid volume administer (ml): 30 Total IV fluid infused: 30 Progress Note Anesthesia document: Postop Eval 1 completed: Yes
--- NOTE | 2024-09-16 14:22 | OP.CCLET_ITS ---
09/16/2024 Tania Kearns Re : Upper GI endoscopy procedure for Regina Taylor Dear Antoni This procedure was performed on Monday, September 16, 2024. My impressions and recommendations are as follows: Impressions : - Moderate Schatzki ring. Dilated. - Small hiatal hernia. - Normal stomach. - Duodenal mucosal changes seen, diagnostic of celiac disease. Biopsied. Recommendations : - Discharge patient to home. - Resume previous diet. - Continue present medications. - Await pathology results. My findings are described in the full procedure note, which is enclosed. If I can be of further assistance, please feel free to contact me at . Sincerely, Marcelo Wood, 09/16/2024 2:21:11 PM This report has been signed electronically.
--- NOTE | 2024-09-16 14:22 | OP.EGD_ITS ---
Patient Name: Regina Taylor Procedure Date: 09/16/2024 1:42 PM Date of : 1955 Age: 68 Procedure: Upper GI endoscopy Indications: Epigastric abdominal pain, Dysphagia, Celiac disease, Positive celiac serologies, Refractory celiac disease Providers: Marcelo Wood DO Referring MD: Tania Kearns Medicines: Monitored Anesthesia Care Patient Profile: This is a 68 year old female. Refer to note in patient chart for documentation of history and physical. Patient has symptoms of chronic epigastric abdominal pain, chronic dysphagia and chronic dyspepsia. Complications: No immediate complications. Procedure: Pre-Anesthesia Assessment: - Prior to the procedure, a History and Physical was performed, and patient medications and allergies were reviewed. The patient is competent. The risks and benefits of the procedure and the sedation options and risks were discussed with the patient. All questions were answered and informed consent was obtained. Patient identification and proposed procedure were verified by the physician in the pre-procedure area. Mental Status Examination: alert and oriented. Airway Examination: normal oropharyngeal airway and neck mobility. Respiratory Examination: clear to auscultation. CV Examination: normal. Prophylactic Antibiotics: The patient does not require prophylactic antibiotics. Prior Anticoagulants: The patient has taken no anticoagulant or antiplatelet agents except for NSAID medication. ASA Grade Assessment: II - A patient with mild systemic disease. After reviewing the risks and benefits, the patient was deemed in satisfactory condition to undergo the procedure. The anesthesia plan was to use monitored anesthesia care (MAC). Immediately prior to administration of medications, the patient was re-assessed for adequacy to receive sedatives. The heart rate, respiratory rate, oxygen saturations, blood pressure, adequacy of pulmonary ventilation, and response to care were monitored throughout the procedure. The physical status of the patient was re-assessed after the procedure. After obtaining informed consent, the endoscope was passed under direct vision. Throughout the procedure, the patient's blood pressure, pulse, and oxygen saturations were monitored continuously. The Endoscope was introduced through the mouth, and advanced to the second part of duodenum. The upper GI endoscopy was accomplished without difficulty. The patient tolerated the procedure well. Scope In: 1:57:18 PM Scope Out: 2:04:05 PM Total Procedure Duration Time 0 hours 6 minutes 47 seconds Findings: A moderate Schatzki ring was found at the gastroesophageal junction. A guidewire was placed and the scope was withdrawn. Dilation was performed with a Savary dilator with no resistance at 54 Fr. The dilation site was examined and showed moderate improvement in luminal narrowing. Estimated blood loss was minimal. A small hiatal hernia was present. The entire examined stomach was normal. Decreased folds were found in the duodenal bulb, decreased folds were found in the first portion of the duodenum, decreased folds were found in the second portion of the duodenum, decreased folds were found in the third portion of the duodenum, flattening was found in the duodenal bulb, flattening was found in the first portion of the duodenum, flattening was found in the second portion of the duodenum, scalloped mucosa was found in the duodenal bulb, scalloped mucosa was found in the first portion of the duodenum, thickened folds were found in the duodenal bulb and thickened folds were found in the second portion of the duodenum. Biopsies for histology were taken with a cold forceps for evaluation of celiac disease. Verification of patient identification for the specimen was done. Estimated blood loss was minimal. Impression: - Moderate Schatzki ring. Dilated. - Small hiatal hernia. - Normal stomach. - Duodenal mucosal changes seen, diagnostic of celiac disease. Biopsied. Recommendation: - Discharge patient to home. - Resume previous diet. - Continue present medications. - Await pathology results. Procedure Code(s): --- Professional --- 95620, Esophagogastroduodenoscopy, flexible, transoral; with insertion of guide wire followed by passage of dilator(s) through esophagus over guide wire 23521, 59,51, Esophagogastroduodenoscopy, flexible, transoral; with biopsy, single or multiple CPT copyright 2021 [employer]. All rights reserved. The codes documented in this report are preliminary and upon record label internship review may be revised to meet current compliance requirements. Marcelo Wood DO 09/16/2024 2:21:11 PM This report has been signed electronically. Number of Addenda: 0 Note Initiated On: 09/16/2024 1:42 PM
--- NOTE | 2024-09-16 20:33 | PCM.POSTANE2 ---
Anesthesia Postop Eval I Sum Postop Eval Completion status Anesthesia document: Postop Eval 1 completed: Yes Anesthesia Postop Eval I Summary Anesthesia Postop Eval I Summary: Anesthesia Postop Eval I: Assessment Summary Airway patent Yes 09/16/24 14:18 [email or web address] Spontaneous unlabored Yes 09/16/24 14:18 [email or web address] respirations Mental status Awake,Calm 09/16/24 14:18 [email or web address] nausea No 09/16/24 14:18 [email or web address] Vomiting No 09/16/24 14:18 [email or web address] Anesthesia Postop Eval I: Fluid Summary Crystalloid volume administer 30 09/16/24 14:18 [email or web address] (ml) Colloids volume administered ( ml) Blood Product volume administered (ml) Total IV fluid infused 30 09/16/24 14:18 [email or web address] Anesthesia Postop Eval I: Summary Notes Anesthesia Complication No 09/16/24 14:18 [email or web address] Anesthesia Complication Comment: Post-operative progress note Anesthesia: Postop Eval II Evaluation Mental status: Awake and Calm Pain Level: 0 nausea: No Vomiting: No Complications Anesthesia Complication: No
== END 2024-09-16 14:49 | disposition home or self-care (01) ==
LOC: EN 11:48 → AC 11:50
PROVIDERS: PCP Nurse Practitioner Adult Health; Referring Provider Nurse Practitioner Adult Health; Visit Provider Internal Medicine Gastroenterology
PROC: 0DJ08ZZ Inspection of Upper Intestinal Tract, Via Natural or Artificial Opening Endoscopic (ICD-10-PCS; CPT 43235; principal; 2024-09-16 12:55)
DX: K90.0 Celiac disease (principal); K44.9 Diaphragmatic hernia without obstruction or gangrene; K22.2 Esophageal obstruction
CPT/HCPCS: 43239; 43248

== ENCOUNTER → 2025-02-04 | Outpatient (CLI) | payer MEDICARE, SELFPAY ==
[2025-02-04 18:05] LABS: Absolute Neutrophil Count 3.7 X10^3/uL (2.0-7.7); Basophil# 0.06 X10^3/uL; Eosinophil# 0.13 X10^3/uL; Eosinophils% 2.2 % (0-5); Hematocrit 39.9 % (37-47); Hemoglobin 13.1 g/dL (12.0-15.0); Lymphocyte % 24.1 % (19-41); Mean Corp Hgb Conc 32.8 g/dL (32-36); Mean Corpuscular Volume 88.3 fL (81-99); Mean Platelet Vol. 11.3 fl (6.2-12.0); Monocyte# 0.44 X10^3/uL; Monocyte% 7.6 % (0-10); NRBC Flagged by Analyzer 0 % (0-5); Neutrophil # 3.73 X10^3/uL (2.7-7.7); Neutrophil % 64.1 % (47-70); Platelet Count 322 K/mm3 (150-450); RBC Distribution Width CV 13.8 % (11.6-14.6); RBC Distribution Width SD 44.5 fl (35.1-43.9); Red Blood Count 4.52 M/mm3 (4.2-5.4); White Blood Count 5.8 K/mm3 (4.4-11.0)
[2025-02-04 18:44] LABS: ALB/GLOB Ratio 1.3 RATIO (0.9-2.4); AST(SGOT) 30 U/L (<=31); Alanine Aminotransfer ALT/SGPT 26 U/L (<=34); Albumin, Serum 4.1 g/dL (3.4-4.8); Alkaline Phosphatase 43 U/L (35-104); Anion Gap 12 (5-15); BUN 20 mg/dL (4-19); BUN/Creat Ratio 21.5 RATIO (10-20); Carbon Dioxide 20.9 mmol/L (21.0-32.0); Chloride 100 mmol/L (98-108); Creatinine, Serum 0.91 mg/dL (0.70-1.20); EST Glomerular Filtration Rate 69 (>60); Globulin 3.1 g/dL (2.2-4.2); Glucose 136 mg/dL (70-99); Hepatitis B Surface Antigen Nonreactive (Nonreactive); Hepatitis C Antibody Nonreactive (Nonreactive); Potassium 4.2 mmol/L (3.3-5.1); Protein, Total 7.2 g/dL (5.9-8.4); Sodium Level 133 mmol/L (133-145)
[2025-02-04 19:10] LABS: CRP < 3.00 mg/L (0.0-3.0)
[2025-02-04 19:36] LABS: Hepatitis B Surface Antibody Nonreactive
[2025-02-04 20:17] LABS: Erythrocyte Sedimentation Rate 8 mm/hr (0-30)
--- OUTSIDE RECORDS SUMMARY | 2025-02-04 21:35 | XMS RPT_ITS | CCD ---
Author Organization [facility] Care Team Providers Care Relay Telegrapher Name Role Phone MAST AGENT CONTRACT CLERK-IMAGING ENGINEER, DAMION Primary Care Physician ANA BOGGS Attending Unavailable MAST AGENT CONTRACT CLERK-IMAGING ENGINEER, DAMION Primary Care Unavailabl e MAST AGENT CONTRACT CLERK-IMAGING ENGINEER, DAMION Attending Unavailabl e MAST AGENT CONTRACT CLERK-IMAGING ENGINEER, DAMION Primary Care Unavailabl e MAST AGENT CONTRACT CLERK-IMAGING ENGINEER, DAMION Attending Unavailabl e MAST AGENT CONTRACT CLERK-IMAGING ENGINEER, DAMION Primary Care Unavailabl e MAST AGENT CONTRACT CLERK-IMAGING ENGINEER, DAMION Attending Unavailabl e MAST AGENT CONTRACT CLERK-IMAGING ENGINEER, DAMION Primary Care Unavailabl e MAST AGENT CONTRACT CLERK-IMAGING ENGINEER, DAMION Primary Care Unavailabl e MAST AGENT CONTRACT CLERK-IMAGING ENGINEER, DAMION Attending Unavailabl e MAST, DAMION Primary Care Unavailable MAST, DAMION Referring Unavailable Friend, Marcelo Consulting Unavailable Friend, Marcelo Attending Unavailable MAST, DAMION Primary Care Unavailable MAST, DAMION Referring Unavailable Friend, Marcelo Attending Unavailable Fozia Pierce Referring Unavailable MAST, DAMION Primary Care Unavailable Fozia Pierce Attending Unavailable MAST, DAMION Primary Care Unavailable MAST, DAMION Referring Unavailable Fozia Pierce Attending Unavailable Scarlet Gonzales Referring Unavaila ble Fozia Pierce Attending Unavailable SCARLET GONZALES MD Attending Unavaila ble MAST AGENT CONTRACT CLERK-IMAGING ENGINEER, DAMION Primary Care Unavailabl SCARLET Mendoza MD Attending Unavaila ble MAST AGENT CONTRACT CLERK-IMAGING ENGINEER, DAMION Primary Care Unavailabl e MAST AGENT CONTRACT CLERK-IMAGING ENGINEER, DAMION Primary Care Unavailabl e MAST AGENT CONTRACT CLERK-IMAGING ENGINEER, DAMION Attending Unavailabl e MAST AGENT CONTRACT CLERK-IMAGING ENGINEER, DAMION Primary Care Unavailabl e MAST AGENT CONTRACT CLERK-IMAGING ENGINEER, DAMION Attending Unavailabl e Allergies Allergy Classification Reported Allergen(s) Allergy Type Date of Onset Reaction(s) Facility (1 source) Codeine Drug Allergy 02-16-2021 gi upset [facility] Work Phone: (1 source) Meperidine Drug Allergy 02-16-2021 GI upset [facility] Work Phone: (1 source) Codeine Drug Allergy 09-16-2024 [facility] Repository (1 source) Meperidine Drug Allergy 09-16-2024 [facility] Repository Medications Current Medications Medication Drug Class(es) Dates Sig (Normalized) Sig (Original) acyclovir 50 mg/ml topical cream (1 source) Herpesvirus Nucleoside Analog DNA Polymerase Inhibitor, Herpes Simplex Virus Nucleoside Analog DNA Polymerase Inhibitor, Herpes Zoster Virus Nucleoside Analog DNA Polymerase Inhibitor Start: 02-16-2021 Acyclovir (Zovirax) 5 % cream Active 1 APPLIC TOPICAL 5 times per week February 16, 2021 12:00am betaine 500 mg oral tablet (2 sources) Methylating Agent Start: 06-05-2024 take 500 mg by mouth twice daily betaine gram(s) =, Oral, BID, 500mg, 0 Refill(s) Start Date: 06/05/24 Status: Ordered Repeat number: 1 BPC 157 (2 sources) Start: 12-22-2024 BPC 157 BPC 157, 0 Refill(s), 59.3 Start Date: 12/22/24 Status: Ordered Repeat number: 1 BPC-157 (2 sources) Start: 09-18-2024 BPC-157 BPC-157, 500 mg, 0 Refill(s), 56.81 Start Date: 09/18/24 Status: Ordered Repeat number: 1 calcium carbonate 500 mg chewable tablet (7 sources) Start: 05-02-2019 calcium carbonate 500 mg (200 mg elemental calcium) oral tablet, chewable Dose : 500 mg = 1 tab(s), Chewed, qDay Start Date: 05/02/19 Status: Ordered co q 10 (3 sources) Start: 09-25-2023 co q 10 co q 10, 0 Refill(s), 60 Start Date: 09/25/23 Status: Ordered estrogens, conjugated (chcf) 0.625 mg/ml vaginal cream (10 sources) Estrogen Start: 01-06-2025 End: 05-12-2025 Premarin Vaginal 0.625 mg/g vaginal cream 1 gram(s), Vaginal, qPM, APPLY 1/2 APPLICATOR VAGINALLY TWICE WEEKLY, # 30 gram(s), 5 Refill(s), [id number], 164, cm, 01/06/25 10:55:00 EDT, Height, kg, 01/06/25 10:55:00 EDT, Dosing Weight Start Date: 01/06/25 Stop Date: 05/12/25 Status: Ordered Quantity: 30.0 Unit: g Repeat number: 6 Start: 09-25-2023 End: 01-29-2024 Premarin 0.625 mg/g vaginal cream with applicator 1 gram(s), Vaginal, qPM, APPLY 1/2 APPLICATOR VAGINALLY TWICE WEEKLY, # 30 gram(s), 5 Refill(s), [id number], 167, cm, 09/25/23 11:01:00 EST, Height, kg, 09/25/23 11:01:00 EST, Dosing Weight Start Date: 09/25/23 Stop Date: 01/29/24 Status: Ordered Start: 02-16-2021 Conjugated Est rogens (Premarin) 0.625 mg/gram cream Active 0.625 MG VAGINAL TWICE A WEEK February 16, 2021 12:00am magnesium oxide 250 mg oral tablet (2 sources) Start: 09-18-2024 take 1 mg by mouth once daily Magnesium 250 mg tablet mg = tab(s), Oral, qDay, 0 Refill(s) Start Date: 09/18/24 Status: Ordered Repeat number: 1 methylsulfonylmethane 1000 m g oral tablet (2 sources) Start: 09-18-2024 MSM 1000 mg or al tablet 0 Refill(s) Start Date: 09/18/24 Status: Ordered Repeat number: 1 Multivitamin preparation (3 sources) Start: 05-15-2024 take 1 tablet by mouth once daily Multivitamin Dose = 1 tab(s), Oral, Daily, Neuro-Mag. Magesium 144mg, 0 Refill(s) Start Date: 05/15/24 Status: Ordered Start: 02-16-2021 take 1 tablet by césar once daily Multivitamin Active 1 TABLET PO DAILY February 16, 2021 12:00am PEG-3350 with Electrolytes (Eqv-GoLYTELY) oral powder for reconstitution (3 sources) Start: 01-16-2024 PEG-3350 with Electrolytes (Eqv-GoLYTELY) oral powder for reconstitution See Instructions, Take as directed 1 day before colonoscopy. Follow instructions as provided by your GI provider at [facility] # 1 EA, 0 Refill(s), [id number], 165, cm, 01/16/24 14:14:00 EDT, Height, kg, 01/16/24 14:14:00 EDT, Dosing Weight Start Date: 01/16/24 Status: Ordered polyethylene glycol 3350 [id number] mg / potassium chloride 2970 mg / sodium bicarbonate 6740 mg / sodium chloride 5860 mg / sodium sulfate 16809 mg powder for oral solution (2 sources) Osmotic Laxative Start: 02-18-2024 GaviLyte-G With Lemon Flavor Pack oral powder for reconstitution 0 Refill(s) Start Date: 02/18/24 Status: Ordered primidone 50 mg oral tablet (2 sources) Anti-epileptic Agent Start: 01-06-2025 End: 04-06-2025 primidone 50 mg oral tablet Dose : 25 mg = 0.5 tab(s), Oral, qHS, # 15 tab(s), 2 Refill(s), Pharmacy: [id number], Essential tremor, 164, cm, 01/06/25 10:55:00 EDT, Height, kg, 01/06/25 10:55:00 EDT, Dosing Weight Start Date: 01/06/25 Stop Date: 04/06/25 Status: Ordered Quantity: 15.0 Unit: tab(s) Repeat number: 3 Indications: Essential tremor; Probiotic (7 sources) Start: 09-25-2023 Probiotic 0 Refill(s) Start Date: 09/25/23 Status: Ordered propranolol hydrochloride 10 mg oral tablet (1 source) beta-Adrenergic Jovanna Start: 09-25-2023 propranolol 10 mg oral tablet Dose : 10 mg = 1 tab(s), Oral, BID, # 60 tab(s), 5 Refill(s), Pharmacy: [id number], 167, cm, 09/25/23 11:01:00 EST, Height, kg, 09/25/23 11:01:00 EST, Dosing Weight Start Date: 09/25/23 Status: Ordered traZODone hydrochloride 50 mg oral tablet (1 source) Serotonin Reuptake Inhibitor Start: 02-16-2021 take 50 mg by mouth at bedtime Trazodone Active 50 MG PO AT BEDTIME February 16, 2021 12:00am valACYclovir 1000 mg oral tablet (1 source) Herpesvirus Nucleoside Analog DNA Polymerase Inhibitor, Herpes Simplex Virus Nucleoside Analog DNA Polymerase Inhibitor, Herpes Zoster Virus Nucleoside Analog DNA Polymerase Inhibitor Start: 02-16-2021 Valacyclovir (Valtrex) 1 gram tablet Active 1000 MG PO DAILY February 16, 2021 12:00am Vitamin B Complex 100 (5 sources) Start: 01-25-2024 Vitamin B Complex 100 0 Refill(s) Start Date: 01/25/24 Status: Ordered Vitamin C 500 mg oral tablet (3 sources) Start: 05-14-2020 Vitamin C 500 mg oral tablet Dose : 500 mg = 1 tab(s), Oral, qDay, 0 Refill(s) Start Date: 05/14/20 Status: Ordered Vitamin D3 50 mcg (2000 intl units) oral capsule (3 sources) Start: 01-09-2022 Vitamin D3 50 mcg (2000 intl units) oral capsule Dose : 50 mcg = 1 cap(s), Oral, qDay, # 60 cap(s), 0 Refill(s) Start Date: 01/09/22 Status: Ordered Vitamin E (9 sources) Start: 09-25-2023 vitamin E Oral, 0 Refill(s) Start Date: 09/25/23 Status: Ordered Repeat number: 1 Start: 09-25-2023 vitamin E Oral , 0 Refill(s) Start Date: 09/25/23 Status: Ordered Zinc (2 sources) Start: 09-25-2023 take 1 mg by mouth o nce daily Zinc mg =, Oral, qDay, 0 Refill(s) Start Date: 09/25/23 Status: Ordered Completed/Discontinued Medications Medication Drug Class(es) Dates Sig (Normalized) Sig (Original) b replete (9 sources) Start: 12-22-2024 b replete b re plete, 0 Refill(s), 59.3 Start Date: 12/22/24 Status: Ordered Repeat number: 1 Start: 09-25-2023 b replete b re plete, 0 Refill(s), 60 Start Date: 09/25/23 Status: Ordered 1 ml denosumab 60 mg/ml prefilled syringe (2 sources) RANK Ligand Inhibitor Start: 06-05-2024 denosuma b 60 mg/mL subcutaneous solution Dose : 60 mg = 1 mL, Subcutaneous, q6mo, # 1 mL, 1 Refill(s), [id number], 163, cm, 06/05/24 10:22:00 EDT, Height, kg, 06/05/24 10:22:00 EDT, Dosing Weight Start Date: 06/05/24 Status: Ordered Quantity: 1.0 Unit: mL Repeat number: 2 LORazepam 1 mg oral tablet (10 sources) Benzodiazepine Start: 09-25-2023 End: 12-24-2023 LORazepam 1 mg oral tablet Dose : 0.5 mg = 0.5 tab(s), Oral, q6hr, TAKE 1/2TABLET BY MOUTH EVERY 6 HOURS NEEDED, # 60 tab(s), 2 Refill(s), [id number], Anxiety, 167, cm, 09/25/23 11:01:00 EST, Height, 57.5, kg, 09/25/23 11:01:00 EST, Dosing Weight Start Date: 09/25/23 Stop Date: 12/24/23 Status: Ordered Quantity: 60.0 Unit: tab(s) Repeat number: 3 Indications: Anxiety disorder, unspecified; Start: 02-16-2021 take 0.5 mg by mouth once norma y Lorazepam Active 0.5 MG PO DAILY February 16, 2021 12:00am meloxicam 7.5 mg oral tablet (8 sources) Nonsteroidal Anti-inflammatory Drug Start: 09-25-2023 End: 03-23-2024 meloxicam 7.5 mg oral tablet Dose : 7.5 mg = 1 tab(s), Oral, qDay, Take twice daily if pain is significant., # 30 tab(s), 5 Refill(s), Pharmacy: [id number], 167, cm, 09/25/23 11:01:00 EST, Height, kg, 09/25/23 11:01:00 EST, Dosing Weight Start Date: 09/25/23 Stop Date: 03/23/24 Status: Ordered Start: 02-16-2021 take 1 tablet by césar th once daily Meloxicam (Mobic) 7.5 mg tablet Active 7.5 MG PO DAILY February 16, 2021 12:00am vitamin D 3 plus K (9 sources) Start: 09-25-[address] [place] K vitamin D 3 plus K, 0 Refill(s), 60 Start Date: 09/25/23 Status: Ordered Repeat number: 1 Start: 09-25-[address] us K vitamin D 3 plus K, 0 Refill(s), 60 Start Date: 09/25/23 Status: Ordered Problems Active Problems Problem Classification Problem Date Documented Da te Episodic/Chronic Abdominal pain (9 sources) Abdominal pain 02-15-2018 Episodic Anxiety disorders (20 sources) Anxiety; Translations: [Anxiety disorder, unspecified] Onset: 01-25-2024 09-25-2023 Chronic Attention-deficit, conduct, and disruptive behavior disorders (9 sources) Attention deficit hyperactivity disorder, 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 Disorders of lipid metabolism (9 sources) Mixed hyperlipidemia 05-02-2019 Chronic Immunizations and screening for infectious disease (2 sources) Rheumatoid factor positive 06-05-2024 Episodic Menopausal disorders (11 sources) Atrophy of vagina; Translations: [Postmenopausal atrophic vaginitis] Onset: 09-25-2023 09-25-2023 Chronic Nonmalignant breast conditions (1 source) Mastodynia; Translations: [Pain of right breast] Episodic Osteoarthritis (1 source) Osteoarthritis; Translations: [Unspecified osteoarthritis, unspecified site] Chronic Osteoporosis (9 sources) Osteoporosis 09-25-2023 Chronic Other ear and sense organ disorders (2 sources) Tinnitus 12-22-2024 Episodic Other gastrointestinal disorders (2 sources) Celiac disease; Translations: [Celiac disease] Onset: 09-22-2024 Chronic Other gastrointestinal disorders (2 sources) Celiac disease 06-05-2024 Chronic Other hereditary and degenerative nervous system conditions (10 sources) Essential tremor; Translations: [Essential tremor] Onset: 01-06-2025 09-25-2023 Chronic Other hereditary and degenerative nervous system conditions (1 source) Essential tremor; Translations: [Essential tremor] Onset: 01-06-2025 Chronic Other nervous system disorders (9 sources) Neuropathy 05-02-2019 Chronic Other nervous system disorders (7 sources) Impaired cognition 01-25-2024 Episodic Other nervous system disorders (2 sources) Other symptoms and signs involving cognitive functions and awareness; Translations: [Other symptoms and signs involving cognitive functions and awareness] Onset: 01-25-2024 Episodic Other nervous system disorders (4 sources) Tremor 05-16-2024 Episodic Other non-traumatic joint disorders (9 sources) Arthropathy 01-09-2020 Chronic Other non-traumatic joint disorders (9 sources) Hip pain 09-25-2023 Episodic Other nutritional; endocrine; and metabolic disorders (9 sources) Weight loss 09-25-2023 Episodic Other nutritional; endocrine; and metabolic disorders (2 sources) Abnormal weight loss; Translations: [Abnormal weight loss] Onset: 01-25-2024 Episodic Other screening for suspected conditions (not mental disorders or infectious disease) (5 sources) Encounter for screening for malignant neoplasm of colon; Translations: [Encounter for screening mammogram for malignant neoplasm of breast] Onset: 02-20-2024 Episodic Residual codes; unclassified (9 sources) Postmenopausal state 09-25-2023 Episodic Residual codes; unclassified (7 sources) Memory impairment 01-25-2024 Episodic Residual codes; unclassified (2 sources) Other amnesia; Translations: [Other amnesia] Onset: 01-25-2024 Episodic Unclassified (9 sources) Body mass index 20-24 - normal 09-25-2023 Unclassified (20 sources) Patient encounter status 12-19-2023 Past or Other Problems Problem Classification Problem Date Documented Da te Episodic/Chronic Residual codes; unclassified (2 sources) Body mass index (BMI) 20.0-20.9, adult; Translations: [Body mass index [BMI] 20.0-20.9, adult] Onset: 09-25-2023 Episodic Residual codes; unclassified (2 sources) Asymptomatic menopausal state; Translations: [Asymptomatic menopausal state] Onset: 09-25-2023 Episodic Results Test Name Value Interpretation Reference Range Facility MA MAMMOGRAM SCREENING BILAT ERAL W/TOMOon 01-20-2025 MA MAMMOGRAM SCREENING BILATERAL W/[place] ORIGINAL FROM: [address] [address] PROCEDURE FOR: REGINA TAYLOR [address] [place] [address] Home: PID#: [id number] Exam#: [id number] : 1955 Age: 69 TO: DAMION BAILEY APRN, CNP [facility] [address] [place], [place] [address] EXAMINATION: SCREENING DIGITAL BILATERAL MAMMOGRAM WITH TOMOSYNTHESIS, 01/12/2025 1:01 pm TECHNIQUE: Screening mammography of the bilateral breasts was performed with tomosynthesis. 2D standard and 3D tomosynthesis combination imaging performed through both breasts in the MLO and CC projection. Computer aided detection was utilized in the interpretation of this exam. COMPARISON: 01/11/2024 HISTORY: Breast cancer screening. FINDINGS: BREAST DENSITY: The breasts are heterogeneously dense, which may obscure small masses. Vascular calcifications are present in both breasts. There are no significant masses or calcifications. IMPRESSION: No mammographic evidence of malignancy. Continued screening with annual mammograms is recommended. Katt Sosazick risk calculations, generated with the history provided, report this patient's 10 year risk and lifetime risk for developing breast cancer at 6.1% and 10.9%, respectively. Based on this assessment tool, if the patient's calculated lifetime risk is below 20%, then the patient is considered at average risk for developing breast cancer. If the patient's calculated lifetime risk is at or above 20%, then the patient is considered high risk for developing breast cancer and may be a candidate for supplemental breast MRI screening in addition to annual mammographic screening per the [place]. BIRADS: BI-RADS: 2: Benign RECALL: 1 year screening RECALL TYPE: mammo LETTER SENT: Normal BI-RADS 1 and 2 Interpreted by: All Granda MD Preliminary Report By: All Granda MD Electronically signed By All Granda MD Dictated Date: 01/20/2025 9:34:45 PM Prelim Date: 01/20/2025 9:39:29 PM Sign Date: 01/20/2025 9:39:29 PM Ordering Provider: DAMION BAILEY Corrections Identification Technician: CHAPARRO HERNANDEZ RT(R)(M)(CT) letter sent: Normal BI-RADS 1 and 2 Mammogram BI-RADS: 2 Benign Normal [facility] .Auto Diffon 05-06-2025 Basophil, Absolute 0.1 10 3/mcL Normal 0.0-0.3 [facility] Comment on above: Performed By: #### H KIERAN #### [address] [address] Basophils/100 WBC (Bld) 1.1 % Normal 0.0-2.5 [facility] Comment on above: Performed By: #### H KIERAN #### [address] [address] Eosinophil, Absolute 0.1 10 3/mcL Normal 0.0-0.7 [facility] Comment on above: Performed By: #### H KIERAN #### [address] [address] Eosinophils/100 WBC (Bld) 1.8 % Normal 0.0-6.0 [facility] Comment on above: Performed By: #### H KIERAN #### [address] [address] Lymphocyte, Absolute 1.4 10 3/mcL Normal 0.9-4.3 [facility] Comment on above: Performed By: #### H KIERAN #### [address] [address] Lymphocytes/100 WBC (Bld) 24.9 % Normal 20.0-40.0 [facility] Comment on above: Performed By: #### H KIERAN #### [address] [address] Monocyte, Absolute 0.6 10 3/mcL Normal 0.1-1.4 [facility] Comment on above: Performed By: #### H KIERAN #### [address] [address] Monocytes/100 WBC (Bld) 10.4 % Normal 2.0-13.0 [facility] Comment on above: Performed By: #### H KIERAN #### [address] [address] Neutrophils/100 WBC (Bld) 61.8 % Normal 50.0-75.0 [facility] Comment on above: Performed By: #### H KIERAN #### [address] [address] .GFRon 01-06-2025 Estimated Glomerular Filtration Rate 77 ml/min/1.73sqm Normal [facility] Comment on above: Result Comment: Stages of Chronic Kidney Disease (CKD) Stage Description eGFR(ml/min/1.73 sq.m.) CKD 1 Normal kidney function or >=90 normal kindney function with possible kidney damage (ex. Proteinuria) CKD 2 Kidney damage with mild loss 60-89 of kidney function CKD 3a Mild to moderate loss of kidney 45-59 function CKD 3b Moderate to severe loss of 30-44 of kindey function CKD 4 Severe loss of kidney function 15-29 CKD 5 Kidney failure <15 Note: (go live 2024) the eGFR calculation was updated to the 2020 CKD-EPI creatinine equation without a race factor to calculate the eGFR results. Performed By: #### H KIERAN #### [place] [address] .NEUABSon 01-06-2025 Neutrophil, Absolute 3.6 10 3/mcL Normal 2.3-8.1 [facility] Comment on above: Performed By: #### H KIERAN #### [place] [address] B12on 01-06-2025 Cobalamin (Vitamin B12) [Mass/Vol] 861 pg/mL Normal 211-911 [facility] Comment on above: Performed By: #### H KIERAN #### [place] [id number] BMPon 01-06-2025 BUN/Creatinine Ratio 18 ratio Normal 7-27 [facility] Comment on above: Performed By: #### H KIERAN #### [place] [id number] Calcium [Mass/Vol] 9.4 mg/dL Normal 8.4-10.2 [facility] Comment on above: Performed By: #### H KIERAN #### [place] [id number] Chloride [Moles/Vol] 102 mmol/L Normal 98-107 [facility] Comment on above: Performed By: #### H KIERAN #### [place] [id number] CO2 [Moles/Vol] 27 mmol/L Normal 23-31 [facility] Comment on above: Performed By: #### H KIERAN #### [place] [id number] Creatinine [Mass/Vol] 0.83 mg/dL Normal 0.51-0.95 [facility] Comment on above: Performed By: #### H KIERAN #### [place] [id number] Electrolyte Balance 7.0 mEq/L Normal 4.0-15.0 [facility] Comment on above: Performed By: #### H KIERAN #### [place] [address] Glucose [Mass/Vol] 86 mg/dL Normal 80-115 [facility] Comment on above: Performed By: #### H KIERAN #### [place] [id number] Potassium [Moles/Vol] 4.4 mmol/L Normal 3.5-5.1 [facility] Comment on above: Performed By: #### H KIERAN #### [place] [address] Sodium [Moles/Vol] 136 mmol/L Normal 136-145 [facility] Comment on above: Performed By: #### H KIERAN #### [place] [id number] Urea nitrogen [Mass/Vol] 15 mg/dL Normal 7-18 [facility] Comment on above: Performed By: #### H KIERAN #### [address] [address] CBCon 01-06-2025 Erythrocyte distribution width (RBC) [Ratio] 14.8 % Normal 11.5-15.5 [facility] Comment on above: Performed By: #### H KIERAN #### [place] [id number] Hematocrit (Bld) [Volume fraction] 40.9 % Normal 34.0-46.0 [facility] Comment on above: Performed By: #### H KIERAN #### [place] [address] Hgb 13.8 G/dL Normal 12.0-16.0 [facility] Comment on above: Performed By: #### H KIERAN #### [place] [address] MCH (RBC) [Entitic mass] 29.3 pg Normal 27.0-33.0 [facility] Comment on above: Performed By: #### H KIERAN #### [place] [address] MCHC 33.7 G/dL Normal 32.0-36.0 [facility] Comment on above: Performed By: #### H KIERAN #### [place] [address] MCV (RBC) [Entitic vol] 86.9 fL Normal 80.0-99.0 [facility] Comment on above: Performed By: #### H KIERAN #### [place] [address] Platelet 311 10 3/mcL Normal 150-450 [facility] Comment on above: Performed By: #### H KIERAN #### [place] [address] Platelet mean volume (Bld) [Entitic vol] 9.4 fL Normal 6.6-10.5 [facility] Comment on above: Performed By: #### H KIERAN #### [place] [address] RBC 4.70 10 6/mcL Normal 4.10-5.30 [facility] Comment on above: Performed By: #### H KIERAN #### [place] [address] WBC 5.8 10 3/mcL Normal 4.5-10.8 [facility] Comment on above: Performed By: #### H KIERAN #### [facility] [address] [place] [address] FEon 01-06-2025 Iron [Mass/Vol] 81 ug/dL Normal 50-170 [facility] Comment on above: Performed By: #### H KIERAN #### [address] [address] LABORATORYOrdered By: SYSTEM SYSTEM on 01-06-2025 25-hydroxyvitamin D3 [Mass/Vol] 97.5 ng/mL Invalid Interpretation Code AO ADM SS Comment on above: Interpretive Data: I nterpretive Values Based on Total 25(OH) Vitamin D: Deficient <20 ng/mL Insufficient 20 - <30 ng/mL Sufficient 30-100 ng/mL Basophils (Bld) [#/Vol] 0.1 103/mcL Normal 0.0 - 0.3 10^3/mcL AO Workflow SS Basophils/100 WBC (Bld) 1.1 % Normal 0.0 - 2.5 % AO Workflow SS Calcium [Mass/Vol] 9.4 mg/dL Normal 8.4 - 10. 2 mg/dL AO ADM SS Chloride [Moles/Vol] 102 mmol/L Normal 98 - 10 7 mmol/L AO ADM SS CO2 [Moles/Vol] 27 mmol/L Normal 23 - 31 mmol/L AO ADM SS Cobalamin (Vitamin B12) [Mass/Vol] 861 pg/mL Normal 211 - 911 pg/mL AH ADM SS Creatinine [Mass/Vol] 0.83 mg/dL Normal 0.51 - 0.95 mg/dL AO ADM SS Electrolyte Balance 7.0 mEq/L Normal 4.0 - 15 .0 mEq/L AO ADM SS Eosinophil, Absolute 0.1 103/mcL Normal 0.0 - 0 .7 10^3/mcL AO Workflow SS Eosinophils/100 WBC (Bld) 1.8 % Normal 0.0 - 6.0 % AO Workflow SS Erythrocyte distribution width (RBC) [Ratio] 14.8 % Normal 11.5 - 15.5 % AO Workflow SS Estimated Glomerular Filtration Rate 77 ml/min/1.73sqm Invalid Interpretation Code AO Chemistry S Comment on above: Interpretive Data: Stages of Chronic Kidney Disease (CKD) Stage Description eGFR(ml/min/1.73 sq.m.) CKD 1 Normal kidney function or >=90 normal kindney function with possible kidney damage (ex. Proteinuria) CKD 2 Kidney damage with mild loss 60-89 of kidney function CKD 3a Mild to moderate loss of kidney 45-59 function CKD 3b Moderate to severe loss of 30-44 of kindey function CKD 4 Severe loss of kidney function 15-29 CKD 5 Kidney failure <15 Note: (go live 2024) the eGFR calculation was updated to the 2020 CKD-EPI creatinine equation without a race factor to calculate the eGFR results. Glucose [Mass/Vol] 86 mg/dL Normal 80 - 115 mg/dL AO ADM SS Hematocrit (Bld) [Volume fraction] 40.9 % Normal 34.0 - 46.0 % AO Workflow SS Hemoglobin (Bld) [Mass/Vol] 13.8 G/dL Normal 12.0 - 16.0 G/dL AO Workflow SS Iron [Mass/Vol] 81 ug/dL Normal 50 - 170 mcg/dL AO ADM SS Lymphocytes (Bld) [#/Vol] 1.4 103/mcL Normal 0.9 - 4.3 10^3/mcL AO Workflow SS Lymphocytes/100 WBC (Bld) 24.9 % Normal 20.0 - 40.0 % AO Workflow SS MCH (RBC) [Entitic mass] 29.3 pg Normal 27.0 - 33.0 pg AO Workflow SS MCHC 33.7 G/dL Normal 32.0 - 36.0 G/dL AO Workflow SS MCV (RBC) [Entitic vol] 86.9 fL Normal 80.0 - 99.0 fL AO Workflow SS Monocytes (Bld) [#/Vol] 0.6 103/mcL Normal 0.1 - 1.4 10^3/mcL AO Workflow SS Monocytes/100 WBC (Bld) 10.4 % Normal 2.0 - 13.0 % AO Workflow SS Neutrophils (Bld) [#/Vol] 3.6 103/mcL Normal 2.3 - 8.1 10^3/mcL AO Workflow SS Neutrophils/100 WBC (Bld) 61.8 % Normal 50.0 - 75.0 % AO Workflow SS Platelet mean volume (Bld) [Entitic vol] 9.4 fL Normal 6.6 - 10.5 fL AO Workflow SS Platelets (Bld) [#/Vol] 311 103/mcL Normal 150 - 450 10^3/mcL AO Workflow SS Potassium [Moles/Vol] 4.4 mmol/L Normal 3.5 - 5.1 mmol/L AO ADM SS RBC (Bld) [#/Vol] 4.70 106/mcL Normal 4.10 - 5.3 0 10^6/mcL AO Workflow SS Sodium [Moles/Vol] 136 mmol/L Normal 136 - 145 mmol/L AO ADM SS Urea nitrogen [Mass/Vol] 15 mg/dL Normal 7 - 18 mg/dL AO ADM SS Urea nitrogen/Creatinine [Mass ratio] 18 ratio Normal 7 - 27 ratio AO ADM SS WBC (Bld) [#/Vol] 5.8 103/mcL Normal 4.5 - 10.8 10^3/mcL AO Workflow SS VIDHon 01-06-2025 Vit. D 25-Hydroxy 97.5 ng/mL Normal [facility] Comment on above: Result Comment: Inte rpretive Values Based on Total 25(OH) Vitamin D: Deficient <20 ng/mL Insufficient 20 - <30 ng/mL Sufficient 30-100 ng/mL Performed By: #### H KIERAN #### [place] [address] Gastroenterology Visit Repor ton 10-14-2024 Gastroenterology Visit Report [facility] Gastroenterology [address] [place] [address] OFFICE VISIT Date of Service: 10/14/24 MR#: [id number] Acct: [id number] Name: REGINA TAYLOR GURVINDER Rep #: [id number] : 1955 Provider: WICHO Hand Age/Sex: 69/F Location: [facility] Status: Signed Intake Vital Signs 11/07/22 15:25 09/16/24 12:31 Height 5 ft 6 in 5 ft 6 in Intake Visit Reasons: 3 M FU Chief Complaint: Celiac disease Allergies codeine Adverse Reaction (Mild, Verified 09/16/24 12:30) gi upset meperidine (From Demerol) Adverse Reaction (Mild, Verified 09/16/24 12:30) GI upset Patient : No Have you fallen in the past year?: No Nurse's Note: OV 10.14.24 Pt here for f/u and reports feeling well with no complaints. Pt would like to know more information on celiac disease and the stage that she may have. PFSH Medical History Wears glasses Wears contact lenses Post-menopausal Alcohol use Arthritis Low iron Non-smoker History of echocardiogram History of stress test Panic disorder Panic attacks Neuropathy Brain fog ADD (attention deficit disorder) Abdominal pain Osteoporosis Celiac disease Back pain Osteoarthritis Anxiety Surgical History Hx of colonoscopy Hx of breast surgery History of hysterectomy History of arthroscopic surgery of elbow History of revision of total hip arthroplasty History of right hip replacement History of appendectomy History of bilateral breast implants Family History Sister CAD (coronary artery disease) Cancer Breast cancer Mother Rheumatoid arthritis Social History Smoking Status: Never smoker second hand exposure: No alcohol intake: current alcohol intake frequency: a few times a week Alcohol type: wine substance use type: does not use what type of physical activity do you participate in: swimming and aerobics frequency: 3-4 times per week HPI HPI Chief Complaint: Celiac disease Details: REGINA TAYLOR, is a 69 F who presents to the office today for f/u. BGI established 07.22.24 with complaints of epigastric pain, anxiety and general malaise. Endorsers 15 lbs weight loss over the past two years. Hx of elevated TTG IgA and anti gliadin antibody. Avoiding gluten. EGD 09.16.24; - Moderate Schatzki ring. Dilated. - Small hiatal hernia. - Normal stomach. - Duodenal mucosal changes seen, diagnostic of celiac disease. Biopsied. Biochemical work up 07.22.24 endomysial IgA Ab positive, TT IgA 6 H, TT IgG 53 H, Anti gliadin IgG Ab 113 H Anti gliadin IgA Ab >150 H *nutrition referral OV 10.14.24 Pt has been doing well. She is following a gluten free diet and has been able to gain 5 lbs. She did not end up meeting with nutrition because it was going to cost her $400. She is doing research online and doing her best to avoid all gluten. ROS Const Constitutional: No anorexia, fatigue, fever(s), weight change or sleep problems Eyes Eyes: No change in vision ENT ENT: No abnormal hearing, difficulty swallowing, mouth lesions, tongue swelling or throat swelling Resp Respiratory: No cough or shortness of breath Cardio Cardiology: No chest pain at rest, chest pain with exertion, shortness of breath or dyspnea on exertion Gastro GI: No difficulty swallowing Genitourinary-Female: No difficulty urinating or burning urination Musc Musculoskeletal: No joint pain, joint swelling, muscle weakness or decreased muscle mass Skin Skin: No hair loss in leg, yellowing of the eye, itchy eyes, rash, skin ulcer or skin swelling Neuro Neurology: No abnormal hearing, abnormal movements, confusion, unsteady gait/balance or memory loss Psych Psychiatric: No anxiety, No confusion and No memory loss Endo Endocrine: No fatigue or weight change Aller/Imm Allergy/Immunologic: No itchy eyes, throat swelling or tongue swelling Loco/Lymp Hematologic/Lymphatic: No easy bleeding, easy bruising or enlarged lymph nodes Exam Const General: cooperative and comfortable Nutritional Appearance: average body habitus and well nourished HENMT Head: normal to inspection Ears: hearing grossly normal bilaterally Nose: external nose normal Face and sinus: normal facial exam Eyes General: appearance normal, both eyes and all related structures Neck Neck: normal visual inspection Chest Chest palpation inspection: normal inspection of the chest Resp Effort Inspection: normal respiratory effort GI Inspection: normal to inspection Skin General: no rashes or lesions noted Neuro General: patient alert Extrem General: normal to inspection Psych Affect (more content not included)... Normal [facility] EGD Reporton 09-16-2024 EGD Report [facility] Medical Records Department [address] [place] [id number] EGD Report MR#: [id number] Acct: [id number] Name: REGINA TAYLOR GURVINDER Rep #: [id number] : 1955 68 From: Marcelo Wood DO PCP: ELIUD DE LA ROSA Status:REG [facility] Patient Name: Regina Taylor Procedure Date: 09/16/2024 1:42 PM Date of : 1955 Age: 68 Procedure: Upper GI endoscopy Indications: Epigastric abdominal pain, Dysphagia, Celiac disease, Positive celiac serologies, Refractory celiac disease Providers: Marcelo Wood DO Referring MD: Eliud De La Rosa Medicines: Monitored Anesthesia Care Patient Profile: This is a 68 year old female. Refer to note in patient chart for documentation of history and physical. Patient has symptoms of chronic epigastric abdominal pain, chronic dysphagia and chronic dyspepsia. Complications: No immediate complications. Procedure: Pre-Anesthesia Assessment: - Prior to the procedure, a History and Physical was performed, and patient medications and allergies were reviewed. The patient is competent. The risks and benefits of the procedure and the sedation options and risks were discussed with the patient. All questions were answered and informed consent was obtained. Patient identification and proposed procedure were verified by the physician in the pre-procedure area. Mental Status Examination: alert and oriented. Airway Examination: normal oropharyngeal airway and neck mobility. Respiratory Examination: clear to auscultation. CV Examination: normal. Prophylactic Antibiotics: The patient does not require prophylactic antibiotics. Prior Anticoagulants: The patient has taken no anticoagulant or antiplatelet agents except for NSAID medication. ASA Grade Assessment: II - A patient with mild systemic disease. After reviewing the risks and benefits, the patient was deemed in satisfactory condition to undergo the procedure. The anesthesia plan was to use monitored anesthesia care (MAC). Immediately prior to administration of medications, the patient was re-assessed for adequacy to receive sedatives. The heart rate, respiratory rate, oxygen saturations, blood pressure, adequacy of pulmonary ventilation, and response to care were monitored throughout the procedure. The physical status of the patient was re-assessed after the procedure. After obtaining informed consent, the endoscope was passed under direct vision. Throughout the procedure, the patient's blood pressure, pulse, and oxygen saturations were monitored continuously. The Endoscope was introduced through the mouth, and advanced to the second part of duodenum. The upper GI endoscopy was accomplished without difficulty. The patient tolerated the procedure well. Scope In: 1:57:18 PM Scope Out: 2:04:05 PM Total Procedure Duration Time 0 hours 6 minutes 47 seconds Findings: A moderate Schatzki ring was found at the gastroesophageal junction. A guidewire was placed and the scope was withdrawn. Dilation was performed with a Savary dilator with no resistance at 54 Fr. The dilation site was examined and showed moderate improvement in luminal narrowing. Estimated blood loss was minimal. A small hiatal hernia was present. The entire examined stomach was normal. Decreased folds were found in the duodenal bulb, decreased folds were found in the first portion of the duodenum, decreased folds were found in the second portion of the duodenum, decreased folds were found in the third portion of the duodenum, flattening was found in the duodenal bulb, flattening was found in the first portion of the duodenum, flattening was found in the second portion of the duodenum, scalloped mucosa was found in the duodenal bulb, scalloped mucosa was found in the first portion of the duodenum, thickened folds were found in the duodenal bulb and thickened folds were found in the second portion of the duodenum. Biopsies for histology were taken with a cold forceps for evaluation of celiac disease. Verification of patient identification for the specimen was done. Estimated blood loss was minimal. Impression: - Moderate Schatzki ring. Dilated. - Small hiatal hernia. - Normal stomach. - Duodenal mucosal changes seen, diagnostic of celiac disease. Biopsied. Recommendation: - Discharge patient to home. - Resume previous diet. - Continue present medications. - Await pathology results. Procedure Code(s): --- Professional --- 65994, Esophagogastroduodenos copy, flexible, transoral; with insertion of guide wire followed by passage of dilator(s) through esophagus over guide wire 14978, 59,51, Esophagogastroduodenos copy, flexible, transoral; with biopsy, single or multiple CPT copyright 2021 [employer]. All rights reserved. The codes documented in this report are preliminary and upo (more content not included)... Normal [facility] MR/POSTOP.[facility] 09-16-2024 MR/POSTOP.[facility] Medical Records Department [address] [place] [address] Anesthesia Postop Eval I 09/16/24 1417 MR#: [id number] Acct: [id number] Name: REGINA TAYLOR GURVINDER Rep #: [id number] : 1955 68 From: All Jacinto PCP: ELIUD DE LA ROSA Status:REG SDC Y Race: C Location: [place] [address] Anesthesia: Postop Eval I Current Vital Signs Temperature: 97.5 F Pulse Rate: 77 Blood Pressure: 105/82 Respiratory Rate: 16 Pulse Ox: 97 Oxygen Delivery Method: Room Air Assessment Airway patent: Yes Spontaneous unlabored respirations: Yes Mental status: Awake and Calm nausea: No Vomiting: No Anesthesia Complication: No Fluid Hydration Crystalloid volume administer (ml): 30 Total IV fluid infused: 30 Progress Note Anesthesia document: Postop Eval 1 completed: Yes 09/16/24 1418 Date All Carrizales Signature: Date CC: Signed Normal [facility] MR/[id number] 09-16-2024 [facility] Medical Records Department [address] [facility] [place] [address] Anesthesia Postop Eval II 09/16/242032 MR#: [id number] Acct: [id number] Name: YAHIR TAYLORH GURVINDER Rep #: [id number] : 1955 68 From: Nikolay Amezquita MD PCP: ELIUD DE LA ROSA Status:[facility] Y Race: C Location: EN Anesthesia Postop Eval I Sum Postop Eval Completion status Anesthesia document: Postop Eval 1 completed: Yes Anesthesia Postop Eval I Summary Anesthesia Postop Eval I Summary: Anesthesia Postop Eval I: Assessment Summary Airway patent Yes 09/16/24 14:18 [email or web address] Spontaneous unlabored Yes 09/16/24 14:18 [email or web address] respirations Mental status Awake,Calm 09/16/24 14:18 [email or web address] nausea No 09/16/24 14:18 [email or web address] Vomiting No 09/16/24 14:18 [email or web address] Anesthesia Postop Eval I: Fluid Summary Crystalloid volume administer 30 09/16/24 14:18 [email or web address] (ml) Colloids volume administered ( ml) Blood Product volume administered (ml) Total IV fluid infused 30 09/16/24 14:18 [email or web address] Anesthesia Postop Eval I: Summary Notes Anesthesia Complication No 09/16/24 14:18 [email or web address] Anesthesia Complication Comment: Post-operative progress note Anesthesia: Postop Eval II Evaluation Mental status: Awake and Calm Pain Level: 0 nausea: No Vomiting: No Complications Anesthesia Complication: No 09/16/242032 Date Nikolay Carrizales Signature: Date CC: Signed Normal [facility] Surgery Specimen Level Lauro 09-16-2024 Surgery Specimen Level IV ---- Patient Age/Sex Location Account Attending Physician ---- REGINA TAYLOR 68/F EN [id number] Marcelo Wood DO ---- Specimen: [id number] Received: 09/16/24 Status: REJI Heller Num: [id number] Spec Type: EGD BIOPSY Subm Dr: Marcelo Wood, HEADER OPERATION: EGD with biopsy and dilatation PRE-OP DIAGNOSIS: Celiac disease TISSUE SUBMITTED: Duodenum biopsy ---- MICROSCOPIC DIAGNOSIS Duodenum, biopsy: Fragments of duodenal mucosa with changes suggestive of celiac disease. See microscopic description and comment. SJ.mr 09/18/2024 COMMENT Correlation with clinical, laboratory, endoscopic findings and appropriate follow up are necessary. MICROSCOPIC DESCRIPTION Slides are reviewed. The specimen shows fragments of duodenal mucosa with mild blunting of villi, mild increased of intraepithelial lymphocytes and moderate chronic inflammatory cell infiltrate in the lamina propria. The findings are suggestive of celiac disease. GROSS DESCRIPTION Received in fixative is one container labeled with the patient's name and designated Duodenum biopsy. The specimen consists of multiple irregular fragments of light pastor soft tissue that in aggregate measure 1.8 x 0.3 x 0.3 cm. The specimen is totally submitted in one cassette. [email or web address].mr 09/17/2024 TC:3 CPT:56119 ---- Patient Age/Sex Location Account Attending Physician ---- REGINA TAYLOR/F EN [id number] Marcelo Wood DO ---- Signed (signature on file) Dr. Baljeet De Leon MD 09/18/24 1159 ---- Normal [facility] Comment on above: Performed By: #### P SUIV #### [facility] [place], [address] L5500.0550on 07-27-2024 BEEF <0.10 Normal Class 0 [facility] Comment on above: Performed By: #### L 3410.2350, L5500.0550, L501.2450, L500.4050 #### [facility] [address] [place], [address] CHOCOLATE <0.10 Normal Class 0 [facility] Comment on above: Performed By: #### L 3410.2350, L5500.0550, L501.2450, L500.4050 #### [facility] [address] [place], [address] CODFISH <0.10 Normal Class 0 [facility] Comment on above: Performed By: #### L 3410.2350, L5500.0550, L501.2450, L500.4050 #### [facility] [address] [place], [place], [id number] COMMENT Comment Normal . [facility] Comment on above: Result Comment: Samara duffy of Specific IgE Class Description of Class ----- < 0.10 0 Negative 0.10 - 0.31 0/I Equivocal/Low 0.32 - 0.55 I Low 0.56 - 1.40 II Moderate 1.41 - 3.90 III High 3.91 - 19.00 IV Very High 19.01 - 100.00 V Very High >100.00 Very High Performed By: #### L 3410.2350, L5500.0550, L501.2450, L500.4050 #### [facility] [address] [place], [place], [id number] CORN <0.10 Normal Class 0 [facility] Comment on above: Performed By: #### L 3410.2350, L5500.0550, L501.2450, L500.4050 #### [facility] [address] [place], [place], [id number] EGG, WHOLE <0.10 Normal Class 0 [facility] Comment on above: Result Comment: Perf ormed at: [facility] Lab[address] [id number] Seat Nailer: Sheldon Alamo MD, Phone: [phone] Performed By: #### L 3410.2350, L5500.0550, L501.2450, L500.4050 #### [facility] [address] [place], [place], [id number] MILK (COW) <0.10 Normal Class 0 [facility] Comment on above: Performed By: #### L 3410.2350, L5500.0550, L501.2450, L500.4050 #### [facility] [address] [place], [address] MUSSELS <0.10 Normal Class 0 [facility] Comment on above: Performed By: #### L 3410.2350, L5500.0550, L501.2450, L500.4050 #### [facility] [address] [place], [address] PEANUT <0.10 Normal Class 0 [facility] Comment on above: Performed By: #### L 3410.2350, L5500.0550, L501.2450, L500.4050 #### [facility] [address] [place], [address] PORK <0.10 Normal Class 0 [facility] Comment on above: Performed By: #### L 3410.2350, L5500.0550, L501.2450, L500.4050 #### [facility] [address] [place], [address] SALMON <0.10 Normal Class 0 [facility] Comment on above: Performed By: #### L 3410.2350, L5500.0550, L501.2450, L500.4050 #### [facility] [address] [place], [address] SHRIMP <0.10 Normal Class 0 [facility] Comment on above: Performed By: #### L 3410.2350, L5500.0550, L501.2450, L500.4050 #### [facility] [address] [place], [address] SOYBEAN <0.10 Normal Class 0 [facility] Comment on above: Performed By: #### L 3410.2350, L5500.0550, L501.2450, L500.4050 #### [facility] [address] [place], [address] TUNA <0.10 Normal Class 0 [facility] Comment on above: Performed By: #### L 3410.2350, L5500.0550, L501.2450, L500.4050 #### [facility] [address] [place], [address] WHEAT <0.10 Normal Class 0 [facility] Comment on above: Performed By: #### L 3410.2350, L5500.0550, L501.2450, L500.4050 #### [facility] [address] [place], [address] Celiac AB,[facility] ANTIGLIADIN IGA >150 Abnormal 0-19 [facility] Comment on above: Result Comment: Nega tive 0 - 19 Weak Positive 20 - 30 Moderate to Strong Positive >30 Performed By: #### L 3410.2350, L5500.0550, L501.2450, L500.4050 #### [facility] [address] [place], [place], [id number] ANTIGLIADIN IGG 113 units Abnormal 0-19 [facility] Comment on above: Result Comment: Nega tive 0 - 19 Weak Positive 20 - 30 Moderate to Strong Positive >30 Performed By: #### L 3410.2350, L5500.0550, L501.2450, L500.4050 #### [facility] [address] [place], [place], [id number] ENDOMYSIAL IGA Positive Abnormal Negative [facility] Comment on above: Performed By: #### L 3410.2350, L5500.0550, L501.2450, L500.4050 #### [facility] [address] [place], [place], [id number] IMMUNOGLOB A QN 315 mg/dL Normal 87-352 [facility] Comment on above: Result Comment: Perf ormed at: - [facility] [id number] Seat Nailer: Juan Pablo Purvis PhD, Phone: [phone] Performed By: #### L 3410.2350, L5500.0550, L501.2450, L500.4050 #### [facility] [address] [place], [address] tTG IGA 53 U/mL Abnormal 0-3 [facility] Comment on above: Result Comment: Nega tive 0 - 3 Weak Positive 4 - 10 Positive >10 Tissue Transglutaminase (tTG) has been identified as the endomysial antigen. Studies have demonstr- ated that endomysial IgA antibodies have over 99% specificity for gluten sensitive enteropathy. Performed By: #### L 3410.2350, L5500.0550, L501.2450, L500.4050 #### [facility] [address] [place], [address] tTG IGG 6 U/mL Abnormal 0-5 [facility] Comment on above: Result Comment: Nega tive 0 - 5 Weak Positive 6 - 9 Positive >9 Performed By: #### L 3410.2350, L5500.0550, L501.2450, L500.4050 #### [facility] [address] [place], [address] Comprehensive Metabolic Prof [facility] 07-22-2024 Albumin [Mass/Vol] 3.9 g/dL Normal 3.2-5.0 [facility] Comment on above: Performed By: #### L 3410.2350, L5500.0550, L501.2450, L500.4050 #### [facility] [address] [place], [address] Albumin/Globulin [Mass ratio] 1.0 {ratio} Normal 0.9-2.4 [facility] Comment on above: Performed By: #### L 3410.2350, L5500.0550, L501.2450, L500.4050 #### [facility] [address] [place], [address] ALK P 74 U/L Normal 45-117 [facility] Comment on above: Performed By: #### L 3410.2350, L5500.0550, L501.2450, L500.4050 #### [facility] [address] [place], [address] ALT [Catalytic activity/Vol] 30 U/L Normal 13-56 [facility] Comment on above: Performed By: #### L 3410.2350, L5500.0550, L501.2450, L500.4050 #### [facility] [address] [place], [address] AST [Catalytic activity/Vol] 25 U/L Normal 15-37 [facility] Comment on above: Performed By: #### L 3410.2350, L5500.0550, L501.2450, L500.4050 #### [facility] [address] [place], [address] Bilirubin [Mass/Vol] 0.40 mg/dL Normal 0.20-1.00 [facility] Comment on above: Result Comment: For patients on eltrombopag therapy, use of Dimension [place] TBIL is not recommended. Performed By: #### L 3410.2350, L5500.0550, L501.2450, L500.4050 #### [facility] [address] [place], [address] BUN/CRE 23.7 RATIO High 10-20 [facility] Comment on above: Performed By: #### L 3410.2350, L5500.0550, L501.2450, L500.4050 #### [facility] [address] [place], [address] CA,Total 9.2 mg/dL Normal 8.5-10.1 [facility] Comment on above: Performed By: #### L 3410.2350, L5500.0550, L501.2450, L500.4050 #### [facility] [address] [place], [address] Chloride [Moles/Vol] 104 mmol/L Normal 98-107 [facility] Comment on above: Performed By: #### L 3410.2350, L5500.0550, L501.2450, L500.4050 #### [facility] [address] [place], [address] CO2 [Moles/Vol] 27.0 mmol/L Normal 21.0-32.0 [facility] Comment on above: Performed By: #### L 3410.2350, L5500.0550, L501.2450, L500.4050 #### [facility] [address] [place] [place], [address] Creatinine [Mass/Vol] 0.80 mg/dL Normal 0.55-1.02 [facility] Comment on above: Result Comment: The validity of the calculated GFR GFRAA in patients over 70 years has not been determined. Clinical correlation is essential. Performed By: #### L 3410.2350, L5500.0550, L501.2450, L500.4050 #### [facility] [address] [place], [address] EST GFR - AA 92 mL/min Normal >60 [facility] Comment on above: Result Comment: Afri can [place] GFR Calc Performed By: #### L 3410.2350, L5500.0550, L501.2450, L500.4050 #### [facility] [address] [place], [address] GAP 3 Low 5-15 [facility] Comment on above: Performed By: #### L 3410.2350, L5500.0550, L501.2450, L500.4050 #### [facility] [address] [place], [address] GFR/1.73 sq M.predicted among non-blacks MDRD (S/P/Bld) [Vol rate/Area] 76 mL/min/{1.73_m2} Normal >60 [facility] Comment on above: Result Comment: Non- GFR Calc Performed By: #### L 3410.2350, L5500.0550, L501.2450, L500.4050 #### [facility] [address] [place], [address] Globulin (S) [Mass/Vol] 3.9 g/dL Normal 2.2-4.2 [facility] Comment on above: Performed By: #### L 3410.2350, L5500.0550, L501.2450, L500.4050 #### [facility] [address] [place], [address] Glucose [Mass/Vol] 82 mg/dL Normal 74-106 [facility] Comment on above: Performed By: #### L 3410.2350, L5500.0550, L501.2450, L500.4050 #### [facility] [address] [place], [address] Potassium [Moles/Vol] 4.2 mmol/L Normal 3.5-5.1 [facility] Comment on above: Performed By: #### L 3410.2350, L5500.0550, L501.2450, L500.4050 #### [facility] [address] [place], [address] Sodium [Moles/Vol] 134 mmol/L Low 136-145 [facility] Comment on above: Performed By: #### L 3410.2350, L5500.0550, L501.2450, L500.4050 #### [facility] [address] [place], [address] T PROT 7.8 g/dL Normal 6.4-8.2 [facility] Comment on above: Performed By: #### L 3410.2350, L5500.0550, L501.2450, L500.4050 #### [facility] [address] [place], [address] Urea nitrogen [Mass/Vol] 19 mg/dL High 7-18 [facility] Comment on above: Performed By: #### L 3410.2350, L5500.0550, L501.2450, L500.4050 #### [facility] [address] [place], [address] Gastroenterology Visit Repor ton 07-22-2024 Gastroenterology Visit Report [facility] Gastroenterology [address] [place] [address] OFFICE VISIT Date of Service: 07/22/24 MR#: [id number] Acct: [id number] Name: REGINA TAYLOR GURVINDER Rep #: [id number] : 1955 Provider: WICHO Hand Age/Sex: 68/F [place] [facility] [place]: Signed Intake Vital Signs 11/07/22 15:25 Height 5 ft 6 in Intake Visit Reasons: Celiac disease Chief Complaint: Celiac disease Allergies codeine Adverse Reaction (Mild, Verified 07/22/24 09:20) gi upset meperidine (From Demerol) Adverse Reaction (Mild, Verified 07/22/24 09:20) GI upset Medications ???Medication ???Instructions ???Recorded ???Confirmed ???Type multivitamin 1 tab PO DAILY 02/16/21 07/01/24 History calcium carbonate 500 mg PO QDAY 07/01/24 07/01/24 History Have you fallen in the past year?: No PFSH Medical History Panic disorder Panic attacks Neuropathy Brain fog ADD (attention deficit disorder) Abdominal pain Rheumatoid factor positive Osteoporosis Celiac disease Back pain Osteoarthritis Anxiety Surgical History History of hysterectomy History of arthroscopic surgery of elbow History of revision of total hip arthroplasty History of right hip replacement History of appendectomy History of bilateral breast implants Family History Sister CAD (coronary artery disease) Cancer Breast cancer Mother Rheumatoid arthritis Social History Smoking Status: Never smoker alcohol intake: current alcohol intake frequency: a few times a week Alcohol type: wine substance use type: does not use what type of physical activity do you participate in: swimming and aerobics frequency: 3-4 times per week HPI HPI Chief Complaint: Celiac disease Details: REGINA TAYLOR, is a 68 F who presents to the office today for establishment with [facility]. Over the past couple of years pt has been struggling with her health w/ anxiety, epigastric pain and overall malaise. Over two years she has had a 15lbs weight loss with inability to gain weight back. She is pretty active and has to eat a lot of protein drinks to stay a stable weight. She has been to naturopathic physicians and had numerous blood testing done which showed an elevation in the TTg IgA as well as anti gliadin antibody. Since then she has been avoiding gluten which has been helpful for her symptoms. She did have a recent colonoscopy with no abnormalities. She has never had an EGD. She has not seen a garden labourer for her Celiac. She denies constipation, diarrhea, blood in her stool, hearbturn or nausea. ROS Const Constitutional: No fatigue, fever(s) or weight change ENT ENT: No difficulty swallowing Gastro GI: No abdominal pain, belching, bloating, change in bowel habits, change in stool character, coffee ground emesis, constipation, cramping, diarrhea, heartburn, difficulty swallowing, feeling full early, excessive flatus, incontinent of stools, Vomiting blood/hematemesis, Blood in stool, loose stools, Black,tarry stools, nausea/dyspepsia, pain with swallowing, vomiting or other Musc Musculoskeletal: Positive for joint pain Skin Skin: No yellowing of the eye or itchy eyes Neuro Neurology: Positive for tremor(s) Psych Psychiatric: Positive for anxiety and No depression Endo Endocrine: No fatigue or weight change Aller/Imm Allergy/Immunologic: No itchy eyes Loco/Lymp Hematologic/Lymphatic: No easy bleeding or easy bruising Exam Const General: cooperative and comfortable Nutritional Appearance: average body habitus and well nourished HENMT Head: normal to inspection Ears: hearing grossly normal bilaterally Nose: external nose normal Face and sinus: normal facial exam Eyes General: appearance normal, both eyes and all related structures Neck Neck: normal visual inspection Chest Chest palpation inspection: normal inspection of the chest and normal palpation of entire chest wall Resp Effort Inspection: normal respiratory effort Auscultation: Bilateral: Clear to Auscultation Cardio Palpation: normal PMI Rate: regular rate Rhythm: regular rhythm GI Inspection: normal to inspection Auscultation: normal bowel sounds Percussion: normal to percussion Palpation: no hepatosplenomegaly Skin General: no rashes or lesions noted Neuro General: patient alert Extrem General: normal to inspection Psych Affect: normal affect Assessment and Plan Assessment and Plan (1) Celiac disease: Status: Acute Plan: This is a 68 yo female presenting today for establishment after biochemical work up revealed elevated antibodies for celiac disease. S (more content not included)... Normal [facility] Lipaseon 07-22-2024 Lipase [Catalytic activity/Vol] 62 U/L Normal 13-75 [facility] Comment on above: Result Comment: Jenni gagnon note: LIPASE revised reference range effective 22. New Lipase methodology. Expected to produce lower values than the previous assay method. NEW Reference Range: 13 - 75 U/L Performed By: #### L 3410.2350, L5500.0550, L501.2450, L500.4050 #### [facility] [address] [place], [address] BD BONE DENSITY DEXA AXIAL S KELETON 06-03-2024 BD BONE DENSITY DEXA AXIAL SKELETON ORIGINAL EXAMINATION: BONE [id number]/1/2024 10:44 am TECHNIQUE: Dual energy bone densitometry lumbar spine and left hip. COMPARISON: 02/01/2015 HISTORY: Reason for Exam: follow up osteoporosis Osteoporosis screening. FINDINGS: L1-L4: BMD= 0.641 g/cm2 T score= -3.7 Left femoral neck: BMD= 0.635 g/cm2 T score= -1.9 Left hip: BMD= 0.646 g/cm2 T score= -2.4 L1-L4 BMD change: -17.9 %, significant. Left hip BMD change: -17.8%, significant. FRAX score is unable to be documented as the patient's T-scores do not include regions required to calculate FRAX. The OF f/k/a NOF recommends that FDA-approved medical therapies be considered in post-menopausal women and men age >/= 50 years with a: * Hip or vertebral fracture, or * T-score of /= 20% for major osteoporotic fractures or * >/= 3% for hip fractures All treatment decisions require clinical judgement and consideration of individual patient factors, including patient preferences, comorbidities, previous drug use, risk factors not captured in the FRAX registered model (e.g., frailty, falls, vitamin D deficiency, increased bone turnover, interval significant decline in bone density) and possible under- or over-estimation of fracture risk by FRAX. IMPRESSION: Osteoporosis by WHO criteria. I have personally reviewed the images of this examination and agree with the resident's findings and interpretation. Interpreted by: Antonio Garcia MD Preliminary Report By: Nito Lehman Electronically signed By Antonio Garcia MD Dictated Date: 06/03/2024 10:45:50 AM Prelim Date: 06/03/2024 1:21:01 PM Sign Date: 06/03/2024 1:21:01 PM Ordering Provider: SCARLET GONZALES Normal [facility] [id number] 05-22-2024 DANN-65 <5.0 Normal 0.0-5.0 [facility] Comment on above: Result Comment: Perf ormed At: [facility] [address] [id number] Jasmeet Chung MD Ph:[phone] Performed By: #### 0 24650, FT3, CMP, 331093, LD, 341618, IBC, 611527, A1C, FERR, CK, FT4, GFR, CRP, FE, 213621 ####[facility] [place], [place] [address]#### INSLN, FOL, B12, THYAB, ENDO, RF, IGA, GLIAD, TCANC, RJ ####[address] [address] GLIADon 05-22-2024 Gliadin Ab IgA 246 High <=19 [facility] Comment on above: Result Comment: Glia din IgG and IgA Ab Interpretation (effective 07/29/07): Result Units Negative <20 Weak Positive 20-30 Moderate to Strong Positive >30 Both IgG and IgA antibodies to gliadin are present in most patients with celiac disease (CD). However, antibody to gliadin may be present in Crohn's disease, dermatitis herpetiformis or in subjects with no clinical evidence of intestinal disease. In healthy individuals with a family history of CD, the antibodies may precede the clinical onset of disease in approximately 25% of the subjects. Gliadin antibody levels will decrease or increase depending on the removal or reintroduction of gluten into the diet. Patients who are IgA deficient develop celiac disease more frequently than individuals who have an intact IgA system. Therefore, gliadin and transglutaminase IgA antibodies may be absent in patients with celiac disease. IgG antibodies to gliadin are especially helpful in IgA deficient patients. A negative result indicates no gliadin antibody or levels below the negative cut-off of the assay. Results of this assay should be used in conjunction with clinical findings and other serological tests. These test results were obtained with the [employer] QUANT[employer] Lite Gliadin IgG II and Gliadin IgA II. Gliadin values obtained with different manufacturers' assay methods may not be used interchangeably. Performed By: #### 0 50392, FT3, CMP, 319549, LD, 228171, IBC, 235474, A1C, FERR, CK, FT4, GFR, CRP, FE, 042573 ####[address] [address]#### INSLN, FOL, B12, THYAB, ENDO, RF, IGA, GLIAD, TCANC, RJ ####[address] [address] Gliadin Ab IgG 170 High <=19 [facility] Comment on above: Result Comment: Glia din IgG and IgA Ab Interpretation (effective 07/29/07): Result Units Negative <20 Weak Positive 20-30 Moderate to Strong Positive >30 Both IgG and IgA antibodies to gliadin are present in most patients with celiac disease (CD). However, antibody to gliadin may be present in Crohn's disease, dermatitis herpetiformis or in subjects with no clinical evidence of intestinal disease. In healthy individuals with a family history of CD, the antibodies may precede the clinical onset of disease in approximately 25% of the subjects. Gliadin antibody levels will decrease or increase depending on the removal or reintroduction of gluten into the diet. Patients who are IgA deficient develop celiac disease more frequently than individuals who have an intact IgA system. Therefore, gliadin and transglutaminase IgA antibodies may be absent in patients with celiac disease. IgG antibodies to gliadin are especially helpful in IgA deficient patients. A negative result indicates no gliadin antibody or levels below the negative cut-off of the assay. Results of this assay should be used in conjunction with clinical findings and other serological tests. These test results were obtained with the [employer] Lite Gliadin IgG II and Gliadin IgA II. Gliadin values obtained with different manufacturers' assay methods may not be used interchangeably. Performed By: #### 0 57209, FT3, CMP, 337381, LD, 871511, IBC, 536998, A1C, FERR, CK, FT4, GFR, CRP, FE, 193445 ####[address] [address]#### INSLN, FOL, B12, THYAB, ENDO, RF, IGA, GLIAD, TCANC, RJ ####[address] [address] ENDOon 05-21-2024 TTG Ab (IgA) 139.1 High <=3.9 [facility] Comment on above: Result Comment: Effcharlotte ctive 03/26/2023: Evaluation of Transglutaminase Ab (IgA) results: Negative: Less than 4.0 Weak positive: 4.0 to 10.0 Positive: Greater than 10.0 Transglutaminase Ab is present in approximately 95% to 100% of patients with celiac disease and 80% of patients with dermatitis herpetiformis. The antibody is rarely found in other conditions. Transglutaminase Ab levels will decrease or increase depending on the removal or reintroduction of gluten into the diet. Patients who are IgA deficient develop celiac disease more frequently than individuals who have an intact IgA system. Therefore, gliadin and transglutaminase IgA antibodies may be absent in patients with celiac disease. IgG antibodies to gliadin are especially helpful in IgA deficient patients. These test results were obtained with the [employer] Lite R-tTG IgA NELSON. R-tTG IgA values obtained with different manufacturers' assay methods may not be used interchangeably. Performed By: #### 0 57796, FT3, CMP, 788769, LD, 084598, IBC, 765250, A1C, FERR, CK, FT4, GFR, CRP, FE, 401082 ####[place] [address]#### INSLN, FOL, B12, THYAB, ENDO, RF, IGA, GLIAD, TCANC, RJ ####[place] [address] SOMATon 05-20-2024 IGF I 87 ng/mL Normal 52-196 [facility] Comment on above: Result Comment: Perf ormed At: [address] [id number] Jasmeet Chung MD Ph:[phone] Performed By: #### 0 85469, FT3, CMP, 695865, LD, 091897, IBC, 070735, A1C, FERR, CK, FT4, GFR, CRP, FE, 819040 ####[place] [address]#### INSLN, FOL, B12, THYAB, ENDO, RF, IGA, GLIAD, TCANC, RJ ####[place] [address] Froy 05-20-2024 TSI <0.10 Normal 0.00-0.55 [facility] Comment on above: Result Comment: Perf ormed At: [address] [id number] Jasmeet Chung MD Ph:[phone] Performed By: #### 0 71593, FT3, CMP, 300349, LD, 479209, IBC, 877085, A1C, FERR, CK, FT4, GFR, CRP, FE, 461165 ####[place] [address]#### INSLN, FOL, B12, THYAB, ENDO, RF, IGA, GLIAD, TCANC, RJ ####[place] [address] .CCLANAIFSon 05-19-2024 Antinuclear Ab Screen Negative Normal Negative [facility] Comment on above: Result Comment: Anti -nuclear antibody test is used as an aid in diagnosis of systemic autoimmune diseases. Where positive and clinically warranted, follow-up using disease-specific testing is recommended. Low positive titers are not uncommon with advanced age, certain chronic infections, and malignancies among others. Test methodology: Indirect fluorescence immunoassay (IFA) using HEp-2 cells. Performed By: [facility] [address] [place] [address] Seat Nailer: Raad Mason III, M.D. CLIA#: [id number] Performed By: #### A NAIFS #### [place] [address] [place], [place] [address] RFon 05-18-2024 Rheumatoid Factor 92.3 High <=5.9 [facility] Comment on above: Result Comment: RF I gM Antibody by Enzyme Immunoassay: Negative < or = 6 Positive > 6 A positive result indicates the presence of RF antibodies and suggests the possibility of rheumatoid arthritis. A negative result indicates no RF IgM antibody or levels below the negative cut-off of the assay. Results of this assay should be used in conjunction with clinical findings and other serological tests. These results were obtained with the [employer] Lite RF IgM NELSON. RF IgM values obtained with different manufacturers' assay methods may not be used interchangeably. The magnitude of the reported IgM levels cannot be correlated to an endpoint titer. Performed By: #### 0 49612, FT3, CMP, 752932, LD, 602502, IBC, 870578, A1C, FERR, CK, FT4, GFR, CRP, FE, 524676 ####[facility] [place], [place] [address]#### INSLN, FOL, B12, THYAB, ENDO, RF, IGA, GLIAD, TCANC, RJ ####[place] [address] [place] [address] [id number] 05-17-2024 ACTH 19.5 pg/mL Normal 7.2-63.3 [facility] Comment on above: Result Comment: ACTH reference interval for samples collected between 7 and 10 AM. Performed At: [address] [place] [id number] Hyun Almeida PhD Ph:[phone] Performed By: #### 0 65137, FT3, CMP, 185088, LD, 865108, IBC, 599476, A1C, FERR, CK, FT4, GFR, CRP, FE, 600125 ####[place] [address]#### INSLN, FOL, B12, THYAB, ENDO, RF, IGA, GLIAD, TCANC, RJ ####[place] [address] SSABon 05-17-2024 Sjogrens SSA Ab <0.2 Normal 0.0-0.9 [facility] Comment on above: Performed By: #### 0 90086, FT3, CMP, 774492, LD, 548754, IBC, 817270, A1C, FERR, CK, FT4, GFR, CRP, FE, 046034 ####[place] [address]#### INSLN, FOL, B12, THYAB, ENDO, RF, IGA, GLIAD, TCANC, RJ ####[place] [address] Sjogrens SSB Ab <0.2 Normal 0.0-0.9 [facility] Comment on above: Result Comment: Perf ormed At: [facility] [address] [id number] Hyun Almeida PhD Ph:[phone] Performed By: #### 0 34110, FT3, CMP, 851555, LD, 213912, IBC, 867943, A1C, FERR, CK, FT4, GFR, CRP, FE, 645793 ####[place] [address]#### INSLN, FOL, B12, THYAB, ENDO, RF, IGA, GLIAD, TCANC, RJ ####[place] [address] .GFRon 05-16-2024 GFR 82 ml/min/1.73sqm Normal [facility] Comment on above: Result Comment: GFR Population mean for , Non- Americans Ages 20-29 = 116 mL/min/1.73 sq.m. Ages 30-39 = 107 mL/min/1.73 sq.m. Ages 40-49 = 99 mL/min/1.73 sq.m. Ages 50-59 = 93 mL/min/1.73 sq.m. Ages 60-69 = 85 mL/min/1.73 sq.m. Ages 70+ = 75 mL/min/1.73 sq.m. Chronic Kidney Disease: Less than 60 mL/min/1.73 square meters End Stage Renal Disease: Less than 15 mL/min/1.73 square meters Performed By: #### 0 52582, FT3, CMP, 792529, LD, 913303, IBC, 717691, A1C, FERR, CK, FT4, GFR, CRP, FE, 875458 ####[facility] [place], [place] [address]#### INSLN, FOL, B12, THYAB, ENDO, RF, IGA, GLIAD, TCANC, RJ ####[facility] [place] [address] GFR Non- 68 ml/min/1.73sqm [facility] Comment on above: Result Comment: GFR Population mean for , Non- Americans Ages 20-29 = 116 mL/min/1.73 sq.m. Ages 30-39 = 107 mL/min/1.73 sq.m. Ages 40-49 = 99 mL/min/1.73 sq.m. Ages 50-59 = 93 mL/min/1.73 sq.m. Ages 60-69 = 85 mL/min/1.73 sq.m. Ages 70+ = 75 mL/min/1.73 sq.m. Chronic Kidney Disease: Less than 60 mL/min/1.73 square meters End Stage Renal Disease: Less than 15 mL/min/1.73 square meters Performed By: #### 0 71969, FT3, CMP, 093406, LD, 605670, IBC, 872710, A1C, FERR, CK, FT4, GFR, CRP, FE, 962973 ####[facility] [place], [place] [address]#### INSLN, FOL, B12, THYAB, ENDO, RF, IGA, GLIAD, TCANC, RJ ####[facility] [place] [address] A1Con 05-16-2024 Glucose [Mass/Vol] 108 mg/dL Normal [facility] Comment on above: Result Comment: Leonor mated Average Glucose calculated by equation ((28.7xA1C)-46.7) Estimated average glucose (eAG) is a calculated value from Hemoglobin A1C and is electronics parts sales representative of the average blood glucose level in the last 2-3 month period. Normal range: less than 114 mg/dL Performed By: #### 0 31281, FT3, CMP, 398777, LD, 690842, IBC, 421566, A1C, FERR, CK, FT4, GFR, CRP, FE, 596101 #### [place] [address] #### INSLN, FOL, B12, THYAB, ENDO, RF, IGA, GLIAD, TCANC, RJ #### [address] [address] HbA1c (Bld) [Mass fraction] 5.4 % Normal 4.3-6.4 [facility] Comment on above: Performed By: #### 0 02958, FT3, CMP, 337763, LD, 339660, IBC, 108240, A1C, FERR, CK, FT4, GFR, CRP, FE, 550428 #### [address] [address] #### INSLN, FOL, B12, THYAB, ENDO, RF, IGA, GLIAD, TCANC, RJ #### [address] [address] B12on 05-16-2024 Cobalamin (Vitamin B12) [Mass/Vol] 578 pg/mL Normal 211-911 [facility] Comment on above: Performed By: #### 0 88696, FT3, CMP, 345212, LD, 221109, IBC, 256764, A1C, FERR, CK, FT4, GFR, CRP, FE, 044231 ####[place] [address]#### INSLN, FOL, B12, THYAB, ENDO, RF, IGA, GLIAD, TCANC, RJ ####[address] [address] CKon 05-16-2024 CK [Catalytic activity/Vol] 116 U/L Normal 26-192 [facility] Comment on above: Performed By: #### 0 34527, FT3, CMP, 986072, LD, 094009, IBC, 391497, A1C, FERR, CK, FT4, GFR, CRP, FE, 003989 ####[place] [address]#### INSLN, FOL, B12, THYAB, ENDO, RF, IGA, GLIAD, TCANC, RJ ####[place] [id number] [facility] Albumin Level 3.8 G/dL Normal 3.4-4.8 [facility] Comment on above: Performed By: #### 0 30374, FT3, CMP, 177260, LD, 244962, IBC, 893681, A1C, FERR, CK, FT4, GFR, CRP, FE, 350395 ####[place] [address]#### INSLN, FOL, B12, THYAB, ENDO, RF, IGA, GLIAD, TCANC, RJ ####[place] [address] Albumin/Globulin [Mass ratio] 1.2 {ratio} Normal 1.1-2.5 [facility] Comment on above: Performed By: #### 0 05384, FT3, CMP, 210058, LD, 652487, IBC, 513019, A1C, FERR, CK, FT4, GFR, CRP, FE, 667055 ####[place] [address]#### INSLN, FOL, B12, THYAB, ENDO, RF, IGA, GLIAD, TCANC, RJ ####[address] [address] ALP [Catalytic activity/Vol] 80 U/L Normal 40-135 [facility] Comment on above: Performed By: #### 0 87569, FT3, CMP, 915946, LD, 203272, IBC, 861778, A1C, FERR, CK, FT4, GFR, CRP, FE, 094859 ####[place] [address]#### INSLN, FOL, B12, THYAB, ENDO, RF, IGA, GLIAD, TCANC, RJ ####[place] [address] ALT [Catalytic activity/Vol] 41 U/L Normal 14-59 [facility] Comment on above: Performed By: #### 0 36084, FT3, CMP, 845392, LD, 517344, IBC, 844704, A1C, FERR, CK, FT4, GFR, CRP, FE, 294487 ####[place] [address]#### INSLN, FOL, B12, THYAB, ENDO, RF, IGA, GLIAD, TCANC, RJ ####[place] [address] AST [Catalytic activity/Vol] 30 U/L Normal 10-40 [facility] Comment on above: Performed By: #### 0 38272, FT3, CMP, 784322, LD, 477308, IBC, 423693, A1C, FERR, CK, FT4, GFR, CRP, FE, 063651 ####[place] [address]#### INSLN, FOL, B12, THYAB, ENDO, RF, IGA, GLIAD, TCANC, RJ ####[place] [address] Bili Total 0.6 mg/dL Normal 0.2-1.0 [facility] Comment on above: Result Comment: Use of this assay is not recommended for patients undergoing treatment with eltrombopag due to the potential for falsely elevated results. Performed By: #### 0 55509, FT3, CMP, 363984, LD, 671042, IBC, 214036, A1C, FERR, CK, FT4, GFR, CRP, FE, 253458 ####[place] [address]#### INSLN, FOL, B12, THYAB, ENDO, RF, IGA, GLIAD, TCANC, RJ ####[address] [address] BUN/Creatinine Ratio 17 ratio Normal 7-27 [facility] Comment on above: Performed By: #### 0 13427, FT3, CMP, 873689, LD, 324215, IBC, 272924, A1C, FERR, CK, FT4, GFR, CRP, FE, 100015 ####[place] [address]#### INSLN, FOL, B12, THYAB, ENDO, RF, IGA, GLIAD, TCANC, RJ ####[address] [address] Calcium [Mass/Vol] 9.0 mg/dL Normal 8.4-10.2 [facility] Comment on above: Performed By: #### 0 24539, FT3, CMP, 306037, LD, 764978, IBC, 870856, A1C, FERR, CK, FT4, GFR, CRP, FE, 187702 ####[place] [address]#### INSLN, FOL, B12, THYAB, ENDO, RF, IGA, GLIAD, TCANC, RJ ####[address] [address] Chloride [Moles/Vol] 103 mmol/L Normal 98-107 [facility] Comment on above: Performed By: #### 0 41508, FT3, CMP, 238229, LD, 042839, IBC, 367137, A1C, FERR, CK, FT4, GFR, CRP, FE, 111965 ####[place] [address]#### INSLN, FOL, B12, THYAB, ENDO, RF, IGA, GLIAD, TCANC, RJ ####[address] [address] CO2 [Moles/Vol] 30 mmol/L Normal 23-31 [facility] Comment on above: Performed By: #### 0 88838, FT3, CMP, 006314, LD, 570996, IBC, 680062, A1C, FERR, CK, FT4, GFR, CRP, FE, 414998 ####[place] [address]#### INSLN, FOL, B12, THYAB, ENDO, RF, IGA, GLIAD, TCANC, RJ ####[address] [address] Creatinine [Mass/Vol] 0.84 mg/dL Normal 0.55-1.02 [facility] Comment on above: Result Comment: Test ing performed on Siemens Dimension EXL analyzer using a modified kinetic Ny technique. Performed By: #### 0 16557, FT3, CMP, 579077, LD, 968790, IBC, 132366, A1C, FERR, CK, FT4, GFR, CRP, FE, 459838 ####[place] [address]#### INSLN, FOL, B12, THYAB, ENDO, RF, IGA, GLIAD, TCANC, RJ ####[place] [id number] Electrolyte Balance 2.0 mEq/L Low 4.0-15.0 [facility] Comment on above: Performed By: #### 0 35921, FT3, CMP, 380352, LD, 314000, IBC, 460741, A1C, FERR, CK, FT4, GFR, CRP, FE, 481574 ####[place] [address]#### INSLN, FOL, B12, THYAB, ENDO, RF, IGA, GLIAD, TCANC, RJ ####[address] [address] Globulin 3.2 G/dL Normal [facility] Comment on above: Performed By: #### 0 23513, FT3, CMP, 145187, LD, 487835, IBC, 084308, A1C, FERR, CK, FT4, GFR, CRP, FE, 695489 ####[place] [address]#### INSLN, FOL, B12, THYAB, ENDO, RF, IGA, GLIAD, TCANC, RJ ####[address] [address] Glucose [Mass/Vol] 88 mg/dL Normal 80-115 [facility] Comment on above: Performed By: #### 0 47560, FT3, CMP, 073590, LD, 352796, IBC, 220993, A1C, FERR, CK, FT4, GFR, CRP, FE, 349506 ####[place] [address]#### INSLN, FOL, B12, THYAB, ENDO, RF, IGA, GLIAD, TCANC, RJ ####[place] [address] Potassium [Moles/Vol] 4.5 mmol/L Normal 3.5-5.1 [facility] Comment on above: Performed By: #### 0 55830, FT3, CMP, 484304, LD, 433226, IBC, 437757, A1C, FERR, CK, FT4, GFR, CRP, FE, 495490 ####[place] [address]#### INSLN, FOL, B12, THYAB, ENDO, RF, IGA, GLIAD, TCANC, RJ ####[place] [address]57[address] Sodium [Moles/Vol] 135 mmol/L Low 136-145 [facility] Comment on above: Performed By: #### 0 33083, FT3, CMP, 267304, LD, 551030, IBC, 061494, A1C, FERR, CK, FT4, GFR, CRP, FE, 632003 ####[place] [address]#### INSLN, FOL, B12, THYAB, ENDO, RF, IGA, GLIAD, TCANC, RJ ####[place] [address] Total Protein 7.0 G/dL Normal 6.4-8.2 [facility] Comment on above: Performed By: #### 0 64668, FT3, CMP, 022048, LD, 608326, IBC, 910311, A1C, FERR, CK, FT4, GFR, CRP, FE, 798859 ####[place] [address]#### INSLN, FOL, B12, THYAB, ENDO, RF, IGA, GLIAD, TCANC, RJ ####[place] [address] Urea nitrogen [Mass/Vol] 14 mg/dL Normal 7-18 [facility] Comment on above: Performed By: #### 0 26810, FT3, CMP, 329937, LD, 510455, IBC, 330511, A1C, FERR, CK, FT4, GFR, CRP, FE, 622994 ####[place] [address]#### INSLN, FOL, B12, THYAB, ENDO, RF, IGA, GLIAD, TCANC, RJ ####[place] [address] CORTon 05-16-2024 Cortisol Level 20.7 mcg/dL Normal [facility] Comment on above: Result Comment: Rj isol AM Reference Range 6.5-26.0 mcg/dL Cortisol PM Reference Range 3.5-15.0 mcg/dL Performed By: #### 0 72472, FT3, CMP, 806960, LD, 345404, IBC, 807892, A1C, FERR, CK, FT4, GFR, CRP, FE, 379317 ####[address] [place] [address]#### INSLN, FOL, B12, THYAB, ENDO, RF, IGA, GLIAD, TCANC, RJ ####[address] 05-16-2024 C-Reactive Protein 0.1 mg/dL Normal 0.0-0.3 [facility] Comment on above: Performed By: #### 0 41275, FT3, CMP, 804085, LD, 397621, IBC, 995764, A1C, FERR, CK, FT4, GFR, CRP, FE, 160940 #### [place] [address] #### INSLN, FOL, B12, THYAB, ENDO, RF, IGA, GLIAD, TCANC, RJ #### [place] [address] FE 05-16-2024 Iron [Mass/Vol] 79 ug/dL Normal 50-170 [facility] Comment on above: Performed By: #### 0 11857, FT3, CMP, 015965, LD, 145200, IBC, 432433, A1C, FERR, CK, FT4, GFR, CRP, FE, 362249 #### [place] [address] #### INSLN, FOL, B12, THYAB, ENDO, RF, IGA, GLIAD, TCANC, RJ #### [place] [address] Carlyn 05-16-2024 Ferritin [Mass/Vol] 23.0 ng/mL Normal 8.0-252.0 [facility] Comment on above: Performed By: #### 0 89824, FT3, CMP, 837323, LD, 370830, IBC, 663478, A1C, FERR, CK, FT4, GFR, CRP, FE, 975344 #### [place] [address] #### INSLN, FOL, B12, THYAB, ENDO, RF, IGA, GLIAD, TCANC, RJ #### [address] 05-16-2024 Folate 14.54 ng/mL Normal 5.38-24.00 [facility] Comment on above: Performed By: #### 0 96171, FT3, CMP, 865185, LD, 305458, IBC, 071078, A1C, FERR, CK, FT4, GFR, CRP, FE, 223270 ####[place] [address]#### INSLN, FOL, B12, THYAB, ENDO, RF, IGA, GLIAD, TCANC, RJ ####[place] [address] FT3on 05-16-2024 Free T3 [Mass/Vol] 2.46 pg/mL Normal 2.30-4.00 [facility] Comment on above: Performed By: #### 0 66240, FT3, CMP, 595128, LD, 699325, IBC, 636102, A1C, FERR, CK, FT4, GFR, CRP, FE, 270641 ####[place] [address]#### INSLN, FOL, B12, THYAB, ENDO, RF, IGA, GLIAD, TCANC, RJ ####[place] [address] FT4on 05-16-2024 Free T4 [Mass/Vol] 1.03 ng/dL Normal 0.76-1.46 [facility] Comment on above: Performed By: #### 0 21486, FT3, CMP, 937889, LD, 422065, IBC, 059906, A1C, FERR, CK, FT4, GFR, CRP, FE, 821465 #### [place] [address] #### INSLN, FOL, B12, THYAB, ENDO, RF, IGA, GLIAD, TCANC, RJ #### [place] [address] HOMOon 05-16-2024 Homocysteine 12.1 umol/l Normal 3.7-13.9 [facility] Comment on above: Result Comment: No te - New Reference Range in effect 20 Performed By: #### H KIERAN #### [place] [address] [address] [place] [address] IBCon 05-16-2024 TIBC 364 mcg/dL Normal 250-450 [facility] Comment on above: Performed By: #### 0 17615, FT3, CMP, 593166, LD, 519498, IBC, 328770, A1C, FERR, CK, FT4, GFR, CRP, FE, 886471 ####[place] [address]#### INSLN, FOL, B12, THYAB, ENDO, RF, IGA, GLIAD, TCANC, RJ ####[place] [address] IGAon 05-16-2024 IgA [Mass/Vol] 285 mg/dL Normal 40-350 [facility] Comment on above: Result Comment: No te - New Reference Range in effect 20 Performed By: #### 0 34123, FT3, CMP, 150502, LD, 248139, IBC, 897638, A1C, FERR, CK, FT4, GFR, CRP, FE, 554969 ####[place] [address]#### INSLN, FOL, B12, THYAB, ENDO, RF, IGA, GLIAD, TCANC, RJ ####[place] [address] INSLNon 05-16-2024 Insulin 5.50 munit/L Normal 2.60-37.60 [facility] Comment on above: Performed By: #### 0 98298, FT3, CMP, 053293, LD, 642901, IBC, 834123, A1C, FERR, CK, FT4, GFR, CRP, FE, 249091 ####[place] [address]#### INSLN, FOL, B12, THYAB, ENDO, RF, IGA, GLIAD, TCANC, RJ ####[place] [address]12[address] [address] [place] [address] LABORATORYOrdered By: SYSTEM SYSTEM on 05-16-2024 Homocysteine [Moles/Vol] 12.1 umol/L Normal 3.7 - 13.9 umol/L AH ADM SS Comment on above: Interpretive Data: * *Note - New Reference Range in effect 20 Albumin BCP dye [Mass/Vol] 3.8 G/dL Normal 3.4 - 4.8 G/dL AO ADM SS Albumin/Globulin [Mass ratio] 1.2 {ratio} Normal 1.1 - 2.5 ratio AO ADM SS ALP [Catalytic activity/Vol] 80 U/L Normal 40 - 135 U/L AO ADM SS ALT With P-5'-P [Catalytic activity/Vol] 41 U/L Normal 14 - 59 U/L AO ADM SS AST With P-5'-P [Catalytic activity/Vol] 30 U/L Normal 10 - 40 U/L AO ADM SS Bilirubin [Mass/Vol] 0.6 mg/dL Normal 0.2 - 1 .0 mg/dL AO ADM SS Comment on above: Interpretive Data: U se of this assay is not recommended for patients undergoing treatment with eltrombopag due to the potential for falsely elevated results. Calcium [Mass/Vol] 9.0 mg/dL Normal 8.4 - 10. 2 mg/dL AO ADM SS Chloride [Moles/Vol] 103 mmol/L Normal 98 - 10 7 mmol/L AO ADM SS CK [Catalytic activity/Vol] 116 U/L Normal 26 - 192 U/L AO ADM SS CO2 [Moles/Vol] 30 mmol/L Normal 23 - 31 mmol/L AO ADM SS Cobalamin (Vitamin B12) [Mass/Vol] 578 pg/mL Normal 211 - 911 pg/mL AH ADM SS Cortisol [Mass/Vol] 20.7 ug/dL Invalid Interpretation Code AH ADM SS Comment on above: Interpretive Data: C ortisol AM Reference Range 6.5-26.0 mcg/dL Cortisol PM Reference Range 3.5-15.0 mcg/dL Creatinine [Mass/Vol] 0.84 mg/dL Normal 0.55 - 1.02 mg/dL AO ADM SS Comment on above: Interpretive Data: T esting performed on Siemens Dimension EXL analyzer using a modified kinetic Ny technique. CRP [Mass/Vol] 0.1 mg/dL Normal 0.0 - 0.3 mg/dL AO ADM SS Electrolyte Balance 2.0 mEq/L Low 4.0 - 15 .0 mEq/L AO ADM SS Ferritin [Mass/Vol] 23.0 ng/mL Normal 8.0 - 25 2.0 ng/mL AO ADM SS Folate [Mass/Vol] 14.54 ng/mL Normal 5.38 - 24. 00 ng/mL AH ADM SS Free T3 [Mass/Vol] 2.46 pg/mL Normal 2.30 - 4. 00 pg/mL AO ADM SS Free T4 [Mass/Vol] 1.03 ng/dL Normal 0.76 - 1. 46 ng/dL AO ADM SS GFR/1.73 sq M.predicted among blacks MDRD (S/P/Bld) [Vol rate/Area] 82 ml/min/1.73sqm Invalid Interpretation Code AO Chemistry S Comment on above: Interpretive Data: GFR Population mean for , Non- Americans Ages 20-29 = 116 mL/min/1.73 sq.m. Ages 30-39 = 107 mL/min/1.73 sq.m. Ages 40-49 = 99 mL/min/1.73 sq.m. Ages 50-59 = 93 mL/min/1.73 sq.m. Ages 60-69 = 85 mL/min/1.73 sq.m. Ages 70+ = 75 mL/min/1.73 sq.m. Chronic Kidney Disease: Less than 60 mL/min/1.73 square meters End Stage Renal Disease: Less than 15 mL/min/1.73 square meters GFR/1.73 sq M.predicted among non-blacks MDRD (S/P/Bld) [Vol rate/Area] 68 ml/min/1.73sqm Invalid Interpretation Code AO Chemistry S Comment on above: Interpretive Data: GFR Population mean for , Non- Americans Ages 20-29 = 116 mL/min/1.73 sq.m. Ages 30-39 = 107 mL/min/1.73 sq.m. Ages 40-49 = 99 mL/min/1.73 sq.m. Ages 50-59 = 93 mL/min/1.73 sq.m. Ages 60-69 = 85 mL/min/1.73 sq.m. Ages 70+ = 75 mL/min/1.73 sq.m. Chronic Kidney Disease: Less than 60 mL/min/1.73 square meters End Stage Renal Disease: Less than 15 mL/min/1.73 square meters Globulin 3.2 G/dL Invalid Interpretation Code AO ADM SS Glucose [Mass/Vol] 88 mg/dL Normal 80 - 115 mg/dL AO ADM SS Glucose [Mass/Vol] 108 mg/dL Invalid Interpretation Code AO Chemistry S Comment on above: Interpretive Data: E stimated average glucose (eAG) is a calculated value from Hemoglobin A1C and is electronics parts sales representative of the average blood glucose level in the last 2-3 month period. Normal range: less than 114 mg/dL HbA1c (Bld) [Mass fraction] 5.4 % Normal 4.3 - 6.4 % AO ADM SS IgA [Mass/Vol] 285 mg/dL Normal 40 - 350 mg/dL AH ADM SS Comment on above: Interpretive Data: * *Note - New Reference Range in effect 20 Insulin Qn 5.50 munit/L Normal 2.60 - 37.60 mU/L AH ADM SS Iron [Mass/Vol] 79 ug/dL Normal 50 - 170 mcg/dL AO ADM SS Iron binding capacity [Mass/Vol] 364 mcg/dL Normal 250 - 450 mcg/dL AO ADM SS LDH [Catalytic activity/Vol] 144 U/L Normal 81 - 234 U/L AO ADM SS Potassium [Moles/Vol] 4.5 mmol/L Normal 3.5 - 5.1 mmol/L AO ADM SS Protein [Mass/Vol] 7.0 G/dL Normal 6.4 - 8.2 G/dL AO ADM SS Sodium [Moles/Vol] 135 mmol/L Low 136 - 145 mmol/L AO ADM SS Thyroglobulin Ab IA Qn 15 unit/mL Normal 15 - 60 unit/mL AH ADM SS Comment on above: Interpretive Data: * *Note - New Reference Range in effect 20 TPO Ab IA Qn 33 unit/mL Normal 0 - 60 unit/mL AH ADM SS Comment on above: Interpretive Data: * *Note - New Reference Range in effect 20 Urea nitrogen [Mass/Vol] 14 mg/dL Normal 7 - 18 mg/dL AO ADM SS Urea nitrogen/Creatinine [Mass ratio] 17 ratio Normal 7 - 27 ratio AO ADM SS LABORATORYOrdered By: Dolly Buschs on 05-16-2024 Test cancelled: HOMO Invalid Interpretation Code AH ALS Subsection LDHon 05-16-2024 LDH 144 U/L Normal 81-234 [facility] Comment on above: Performed By: #### 0 55476, FT3, CMP, 656422, LD, 750357, IBC, 317415, A1C, FERR, CK, FT4, GFR, CRP, FE, 730160 #### [place] [address] [place] [address] #### INSLN, FOL, B12, THYAB, ENDO, RF, IGA, GLIAD, TCANC, RJ #### [place] [address] [place] [address] TCANCon 05-16-2024 Test cancelled: HOMO Normal [facility] Comment on above: Performed By: #### 0 76431, FT3, CMP, 990203, LD, 253622, IBC, 065110, A1C, FERR, CK, FT4, GFR, CRP, FE, 756169 ####[place] [address]#### INSLN, FOL, B12, THYAB, ENDO, RF, IGA, GLIAD, TCANC, RJ ####[place] [address] THYABon 05-16-2024 anti-Thyroid Peroxidase 33 units/ml Normal 0-60 [facility] Comment on above: Result Comment: No te - New Reference Range in effect 20 Performed By: #### 0 60800, FT3, CMP, 143159, LD, 742177, IBC, 488791, A1C, FERR, CK, FT4, GFR, CRP, FE, 413402 ####[place] [address]#### INSLN, FOL, B12, THYAB, ENDO, RF, IGA, GLIAD, TCANC, RJ ####[place] [address] Thyroglobulin Ab 15 units/ml Normal 15-60 [facility] Comment on above: Result Comment: No te - New Reference Range in effect 20 Performed By: #### 0 41763, FT3, CMP, 276167, LD, 190232, IBC, 835228, A1C, FERR, CK, FT4, GFR, CRP, FE, 626599 ####[facility] [place], [place] [address]#### INSLN, FOL, B12, THYAB, ENDO, RF, IGA, GLIAD, TCANC, RJ ####[facility] [place] [address] LABORATORYOrdered By: SYSTEM SYSTEM on 02-27-2024 Parathyrin.intact [Mass/Vol] 59.7 pg/mL Normal 18.5 - 88.0 pg/mL ADM SS PTHon 02-27-2024 PTH, Intact 59.7 pg/mL Normal 18.5-88.0 [facility] ([place]) Comment on above: Performed By: #### P TH #### [facility] [address] [place] [address] Final Surgical Pathology Rep [facility] 02-22-2024 Final Surgical Pathology Report . Pathology Reports Accession: Collected Date/Time: Received Date/Time: Pathologist: [id number] 02/20/2024 07:27 EDT 02/21/2024 07:57 EDT MD SUKHJINDER AMAYA Final Surgical Pathology Report DIAGNOSIS: ASCENDING COLON, BIOPSY: - SESSILE SERRATED LESION WITHOUT ATYPIA CLINICAL INFORMATION: Procedure: COLONOSCOPY WITH POLYPECTOMY Preoperative diagnosis: SCREENING Postoperative diagnosis: SCREENING SPECIMEN: A ASCENDING COLON POLYP GROSS DESCRIPTION: All parts labelled with patient name and [id number] Received in formalin labeled ascending colon polyp are 2 pastor tissue fragments measuring 0.2 x 0.1 and 0.7 x 0.1 cm. TS-1 Doris Mitchell, Grossing Electric Screw Driver Operator/ Dr. Allan Martino, Pathologist Dictated by Doris Mitchell MICROSCOPIC DESCRIPTION: The microscopic examination is performed, except in the case of Gross Only. Electronically Signed by Pathology Report verified by [facility] SUKHJINDER AMAYA MD Sign out Date: 02/22/2024 07:49 Performing Lab: [facility], [address] [place] [address] [facility] Pathology Dept Disclaimer If ancillary studies were utilized, the following Laboratory Developed Test (LDT) disclaimer will apply: Under CLIA requirements, [facility] is qualified to perform high complexity testing. For all ancillary stains, positive and negative controls stain appropriately. Performance characteristics of immunohistochemical and chromogenic in-situ hybridization tests have been determined by [facility]. These tests are used for clinical purposes, They should not be regarded as investigational or for research. Normal [facility]) LABORATORYOrdered By: SYSTEM SYSTEM on 01-25-2024 Parathyrin.intact [Mass/Vol] 77.4 pg/mL Normal 18.5 - 88.0 pg/mL AH ADM SS PTHon 01-25-2024 PTH, Intact 77.4 pg/mL Normal 18.5-88.0 [facility]) Comment on above: Performed By: #### P TH ####[place] [address]70 [address] [place] [address] [place] MAMMOGRAM SCREENING BILAT ERAL W/TOMOon 01-13-2024 MA MAMMOGRAM SCREENING BILATERAL W/LAYTON ORIGINAL FROM: [address] [address] PROCEDURE FOR: REGINA TAYLOR [address] [place] [address] Home: PID#: [id number] Exam#: [id number] : 1955 Age: 68 TO: DAMION VILLASEÑOR [place], [place] [address] EXAMINATION: SCREENING DIGITAL BILATERAL MAMMOGRAM WITH TOMOSYNTHESIS, 01/11/2024 12:53 pm TECHNIQUE: Screening mammography of the bilateral breasts was performed with tomosynthesis. 2D standard and 3D tomosynthesis combination imaging performed through both breasts in the MLO and CC projection. Computer aided detection was utilized in the interpretation of this exam. COMPARISON: 11/07/2022, 07/25/2021 HISTORY: Breast cancer screening. FINDINGS: BREAST DENSITY: Heterogeneously dense There are no significant masses or calcifications. IMPRESSION: No mammographic evidence of malignancy. Continued screening with annual mammograms is recommended. Katt Fonseca risk calculations, generated with the history provided, report this patient's 10 year risk and lifetime risk for developing breast cancer at 2.0% and 3.8%, respectively. Based on this assessment tool, if the patient's calculated lifetime risk is below 20%, then the patient is considered at average risk for developing breast cancer. If the patient's calculated lifetime risk is at or above 20%, then the patient is considered high risk for developing breast cancer and may be a candidate for supplemental breast MRI screening in addition to annual mammographic screening per the [place]. BIRADS: MAMMOGRAM BI-RADS: 1: Negative RECALL: 1 year screening RECALL TYPE: mammo LETTER SENT: Normal BI-RADS 1 and 2 Interpreted by: Joshua Delgadillo MD Preliminary Report By: Joshua Delgadillo MD Electronically signed By Joshua Delgadillo MD Dictated Date: 01/13/2024 8:39:51 AM Prelim Date: 01/13/2024 8:43:59 AM Sign Date: 01/13/2024 8:43:59 AM Ordering Provider: DAMION BAILEY Corrections Identification Technician: KEENAN JOSHI RT (R)(M) letter sent: Normal BI-RADS 1 and 2 Mammogram BI-RADS: 1 Negative Normal [facility] ([place]) LABORATORYOrdered By: Steven Coles on 01-11-2024 Cholesterol [Mass/Vol] 190 mg/dL Normal 0 - 200 mg/dL AO ADM SS Comment on above: Interpretive Data: C holesterol Reference Interval: Less than 200 Desirable 200-239 Borderline high risk 240 and above High risk Cholesterol in HDL [Mass/Vol] 70 mg/dL High 40 - 60 mg/dL AO ADM SS Cholesterol in LDL [Mass/Vol] 114 mg/dL Normal 0 - 130 mg/dL AO ADM SS Triglyceride [Mass/Vol] 29 mg/dL Normal 0 - 150 mg/dL AO ADM SS Comment on above: Interpretive Data: T riglyceride Reference Interval: Less than 150 Normal 150-199 Borderline high risk 200-499 High risk 500 or higher Very high risk LIPIDon 01-11-2024 Cholesterol [Mass/Vol] 190 mg/dL Normal 0-200 [facility] ([place]) Comment on above: Result Comment: Chol esterol Reference Interval: Less than 200 Desirable 200-239 Borderline high risk 240 and above High risk Performed By: #### L IPID #### [address] [address] Cholesterol in HDL [Mass/Vol] 70 mg/dL High 40-60 [facility] ([place]) Comment on above: Performed By: #### L IPID #### [address] [address] Cholesterol in LDL [Mass/Vol] 114 mg/dL Normal 0-130 [facility] ([place]) Comment on above: Performed By: #### L IPID #### [address] [address] Triglyceride [Mass/Vol] 29 mg/dL Normal 0-150 [facility] ([place]) Comment on above: Result Comment: Trig lyceride Reference Interval: Less than 150 Normal 150-199 Borderline high risk 200-499 High risk 500 or higher Very high risk Performed By: #### L IPID #### [address] [address] .Auto Diffon 09-25-2023 Basophil, Absolute 0.0 10 3/mcL Normal 0.0-0.2 [facility] ([place]) Comment on above: Performed By: #### T SH, VIDH, FT4, ADIFF, CBC, GFR, ANEU, CMP #### [address] [address] Basophils/100 WBC (Bld) 0.7 % Normal 0.0-2.5 [facility] ([place]) Comment on above: Performed By: #### T SH, VIDH, FT4, ADIFF, CBC, GFR, ANEU, CMP #### [address] [address] Eosinophil, Absolute 0.1 10 3/mcL Normal 0.0-0.4 [facility] ([place]) Comment on above: Performed By: #### T SH, VIDH, FT4, ADIFF, CBC, GFR, ANEU, CMP #### [address] [address] Eosinophils/100 WBC (Bld) 1.6 % Normal 0.0-7.0 [facility] ([place]) Comment on above: Performed By: #### T SH, VIDH, FT4, ADIFF, CBC, GFR, ANEU, CMP #### [address] [address] Lymphocyte, Absolute 1.4 10 3/mcL Normal 0.8-3.9 [facility] ([place]) Comment on above: Performed By: #### T SH, VIDH, FT4, ADIFF, CBC, GFR, ANEU, CMP #### [address] [address] Lymphocytes/100 WBC (Bld) 24.0 % Normal 10.0-50.0 [facility] ([place]) Comment on above: Performed By: #### T SH, VIDH, FT4, ADIFF, CBC, GFR, ANEU, CMP #### [address] [address] Monocyte, Absolute 0.6 10 3/mcL Normal 0.2-1.0 [facility] ([place]) Comment on above: Performed By: #### T SH, VIDH, FT4, ADIFF, CBC, GFR, ANEU, CMP #### [address] [address] Monocytes/100 WBC (Bld) 10.1 % Normal 1.7-13.0 [facility] ([place]) Comment on above: Performed By: #### T SH, VIDH, FT4, ADIFF, CBC, GFR, ANEU, CMP #### [address] [address] Neutrophils/100 WBC (Bld) 63.6 % Normal 37.0-80.0 [facility] ([place]) Comment on above: Performed By: #### T SH, VIDH, FT4, ADIFF, CBC, GFR, ANEU, CMP #### [address] [address] .GFRon 09-25-2023 GFR 83 ml/min/1.73sqm Normal [facility] ([place]) Comment on above: Result Comment: GFR Population mean for , Non- Americans Ages 20-29 = 116 mL/min/1.73 sq.m. Ages 30-39 = 107 mL/min/1.73 sq.m. Ages 40-49 = 99 mL/min/1.73 sq.m. Ages 50-59 = 93 mL/min/1.73 sq.m. Ages 60-69 = 85 mL/min/1.73 sq.m. Ages 70+ = 75 mL/min/1.73 sq.m. Chronic Kidney Disease: Less than 60 mL/min/1.73 square meters End Stage Renal Disease: Less than 15 mL/min/1.73 square meters Performed By: #### T SH, VIDH, FT4, ADIFF, CBC, GFR, ANEU, CMP ####[place] [address] [place], [place] [address] GFR Non- 69 ml/min/1.73sqm Normal [facility] ([place]) Comment on above: Result Comment: GFR Population mean for , Non- Americans Ages 20-29 = 116 mL/min/1.73 sq.m. Ages 30-39 = 107 mL/min/1.73 sq.m. Ages 40-49 = 99 mL/min/1.73 sq.m. Ages 50-59 = 93 mL/min/1.73 sq.m. Ages 60-69 = 85 mL/min/1.73 sq.m. Ages 70+ = 75 mL/min/1.73 sq.m. Chronic Kidney Disease: Less than 60 mL/min/1.73 square meters End Stage Renal Disease: Less than 15 mL/min/1.73 square meters Performed By: #### T SH, VIDH, FT4, ADIFF, CBC, GFR, ANEU, CMP ####[id number] [place], [place] [address] .NEUABSon 09-25-2023 Neutrophil, Absolute 3.7 10 3/mcL Normal 2.9-6.2 [facility] ([place]) Comment on above: Performed By: #### T SH, VIDH, FT4, ADIFF, CBC, GFR, ANEU, CMP #### [place] [id number] CBCon 09-25-2023 Erythrocyte distribution width (RBC) [Ratio] 13.1 % Normal 11.5-14.5 [facility] ([place]) Comment on above: Performed By: #### T SH, VIDH, FT4, ADIFF, CBC, GFR, ANEU, CMP #### [place] [id number] Hematocrit (Bld) [Volume fraction] 38.9 % Normal 37.0-47.0 [facility] ([place]) Comment on above: Performed By: #### T SH, VIDH, FT4, ADIFF, CBC, GFR, ANEU, CMP #### [place] [id number] Hgb 13.4 G/dL Normal 12.0-16.0 [facility] ([place]) Comment on above: Performed By: #### T SH, VIDH, FT4, ADIFF, CBC, GFR, ANEU, CMP #### [place] [place] [id number] MCH (RBC) [Entitic mass] 30.1 pg Normal 27.0-31.2 [facility] ([place]) Comment on above: Performed By: #### T SH, VIDH, FT4, ADIFF, CBC, GFR, ANEU, CMP #### [place] [id number] MCHC 34.3 G/dL Normal 33.0-37.0 [facility] ([place]) Comment on above: Performed By: #### T SH, VIDH, FT4, ADIFF, CBC, GFR, ANEU, CMP #### [place] [id number] MCV (RBC) [Entitic vol] 87.7 fL Normal 80.0-94.0 [facility] ([place]) Comment on above: Performed By: #### T SH, VIDH, FT4, ADIFF, CBC, GFR, ANEU, CMP #### [place] [address] Platelet 311 10 3/mcL Normal 130-400 [facility] ([place]) Comment on above: Performed By: #### T SH, VIDH, FT4, ADIFF, CBC, GFR, ANEU, CMP #### [address] [address] Platelet mean volume (Bld) [Entitic vol] 9.9 fL Normal 7.4-10.4 [facility] ([place]) Comment on above: Performed By: #### T SH, VIDH, FT4, ADIFF, CBC, GFR, ANEU, CMP #### [address] [address] RBC 4.44 10 6/mcL Normal 4.20-5.40 [facility] ([place]) Comment on above: Performed By: #### T SH, VIDH, FT4, ADIFF, CBC, GFR, ANEU, CMP #### [place] [address] WBC 5.9 10 3/mcL Normal 4.6-10.8 [facility] ([place]) Comment on above: Performed By: #### T SH, VIDH, FT4, ADIFF, CBC, GFR, ANEU, CMP #### [address] [address] CMPon 09-25-2023 Albumin Level 3.6 G/dL Normal 3.4-4.8 [facility]) Comment on above: Performed By: #### T SH, VIDH, FT4, ADIFF, CBC, GFR, ANEU, CMP #### [place] [id number] Albumin/Globulin [Mass ratio] 0.9 {ratio} Low 1.1-2.5 [facility]) Comment on above: Performed By: #### T SH, VIDH, FT4, ADIFF, CBC, GFR, ANEU, CMP #### [address] [address] ALP [Catalytic activity/Vol] 95 U/L Normal 40-135 [facility]) Comment on above: Performed By: #### T SH, VIDH, FT4, ADIFF, CBC, GFR, ANEU, CMP #### [address] [address] ALT [Catalytic activity/Vol] 46 U/L Normal 14-59 [facility] ([place]) Comment on above: Performed By: #### T SH, VIDH, FT4, ADIFF, CBC, GFR, ANEU, CMP #### [address] [address] AST [Catalytic activity/Vol] 30 U/L Normal 10-40 [facility] ([place]) Comment on above: Performed By: #### T SH, VIDH, FT4, ADIFF, CBC, GFR, ANEU, CMP #### [address] [address] Bili Total 0.5 mg/dL Normal 0.2-1.0 [facility] ([place]) Comment on above: Result Comment: Use of this assay is not recommended for patients undergoing treatment with eltrombopag due to the potential for falsely elevated results. Performed By: #### T SH, VIDH, FT4, ADIFF, CBC, GFR, ANEU, CMP #### [address] [address] BUN/Creatinine Ratio 19 ratio Normal 7-27 [facility] ([place]) Comment on above: Performed By: #### T SH, VIDH, FT4, ADIFF, CBC, GFR, ANEU, CMP #### [address] [address] Calcium [Mass/Vol] 9.4 mg/dL Normal 8.4-10.2 [facility] ([place]) Comment on above: Performed By: #### T SH, VIDH, FT4, ADIFF, CBC, GFR, ANEU, CMP #### [address] [address] Chloride [Moles/Vol] 103 mmol/L Normal 98-107 [facility] ([place]) Comment on above: Performed By: #### T SH, VIDH, FT4, ADIFF, CBC, GFR, ANEU, CMP #### [address] [address] CO2 [Moles/Vol] 26 mmol/L Normal 23-31 [facility] ([place]) Comment on above: Performed By: #### T SH, VIDH, FT4, ADIFF, CBC, GFR, ANEU, CMP #### [address] [address] Creatinine [Mass/Vol] 0.83 mg/dL Normal 0.55-1.02 [facility] ([place]) Comment on above: Performed By: #### T SH, VIDH, FT4, ADIFF, CBC, GFR, ANEU, CMP #### [address] [address] Electrolyte Balance 9.0 mEq/L Normal 4.0-15.0 [facility] ([place]) Comment on above: Performed By: #### T SH, VIDH, FT4, ADIFF, CBC, GFR, ANEU, CMP #### [place] [id number] Globulin 3.8 G/dL Normal [facility] ([place]) Comment on above: Performed By: #### T SH, VIDH, FT4, ADIFF, CBC, GFR, ANEU, CMP #### [address] [address] Glucose [Mass/Vol] 81 mg/dL Normal 80-115 [facility] ([place]) Comment on above: Performed By: #### T SH, VIDH, FT4, ADIFF, CBC, GFR, ANEU, CMP #### [address] [address] Potassium [Moles/Vol] 4.4 mmol/L Normal 3.5-5.1 [facility] ([place]) Comment on above: Performed By: #### T SH, VIDH, FT4, ADIFF, CBC, GFR, ANEU, CMP #### [address] [address] Sodium [Moles/Vol] 138 mmol/L Normal 136-145 [facility] ([place]) Comment on above: Performed By: #### T SH, VIDH, FT4, ADIFF, CBC, GFR, ANEU, CMP #### [address] [address] Total Protein 7.4 G/dL Normal 6.4-8.2 [facility] ([place]) Comment on above: Performed By: #### T SH, VIDH, FT4, ADIFF, CBC, GFR, ANEU, CMP #### [place] [id number] Urea nitrogen [Mass/Vol] 16 mg/dL Normal 7-18 [facility] ([place]) Comment on above: Performed By: #### T SH, VIDH, FT4, ADIFF, CBC, GFR, ANEU, CMP #### [place] [id number] FT4on 09-25-2023 Free T4 [Mass/Vol] 1.04 ng/dL Normal 0.76-1.46 [facility] ([place]) Comment on above: Performed By: #### T SH, VIDH, FT4, ADIFF, CBC, GFR, ANEU, CMP #### [address] [address] LABORATORYOrdered By: SYSTEM SYSTEM on 09-25-2023 25-hydroxyvitamin D3 [Mass/Vol] 58.4 ng/mL Invalid Interpretation Code AO ADM SS Comment on above: Interpretive Data: I nterpretive Values Based on Total 25(OH) Vitamin D: Deficient <20 ng/mL Insufficient 20 - <30 ng/mL Sufficient 30-100 ng/mL Albumin BCP dye [Mass/Vol] 3.6 G/dL Normal 3.4 - 4.8 G/dL AO ADM SS Albumin/Globulin [Mass ratio] 0.9 {ratio} Low 1.1 - 2.5 ratio AO ADM SS ALP [Catalytic activity/Vol] 95 U/L Normal 40 - 135 U/L AO ADM SS ALT With P-5'-P [Catalytic activity/Vol] 46 U/L Normal 14 - 59 U/L AO ADM SS AST With P-5'-P [Catalytic activity/Vol] 30 U/L Normal 10 - 40 U/L AO ADM SS Basophil, Absolute 0.0 103/mcL Normal 0.0 - 0.2 10^3/mcL AO Workflow SS Basophils/100 WBC (Bld) 0.7 % Normal 0.0 - 2.5 % AO Workflow SS Bilirubin [Mass/Vol] 0.5 mg/dL Normal 0.2 - 1 .0 mg/dL AO ADM SS Comment on above: Interpretive Data: U se of this assay is not recommended for patients undergoing treatment with eltrombopag due to the potential for falsely elevated results. Calcium [Mass/Vol] 9.4 mg/dL Normal 8.4 - 10. 2 mg/dL AO ADM SS Chloride [Moles/Vol] 103 mmol/L Normal 98 - 10 7 mmol/L AO ADM SS CO2 [Moles/Vol] 26 mmol/L Normal 23 - 31 mmol/L AO ADM SS Creatinine [Mass/Vol] 0.83 mg/dL Normal 0.55 - 1.02 mg/dL AO ADM SS Electrolyte Balance 9.0 mEq/L Normal 4.0 - 15 .0 mEq/L AO ADM SS Eosinophil, Absolute 0.1 103/mcL Normal 0.0 - 0 .4 10^3/mcL AO Workflow SS Eosinophils/100 WBC (Bld) 1.6 % Normal 0.0 - 7.0 % AO Workflow SS Erythrocyte distribution width (RBC) [Ratio] 13.1 % Normal 11.5 - 14.5 % AO Workflow SS Free T4 [Mass/Vol] 1.04 ng/dL Normal 0.76 - 1. 46 ng/dL AO ADM SS GFR/1.73 sq M.predicted among blacks MDRD (S/P/Bld) [Vol rate/Area] 83 ml/min/1.73sqm Invalid Interpretation Code AO Chemistry S Comment on above: Interpretive Data: GFR Population mean for , Non- Americans Ages 20-29 = 116 mL/min/1.73 sq.m. Ages 30-39 = 107 mL/min/1.73 sq.m. Ages 40-49 = 99 mL/min/1.73 sq.m. Ages 50-59 = 93 mL/min/1.73 sq.m. Ages 60-69 = 85 mL/min/1.73 sq.m. Ages 70+ = 75 mL/min/1.73 sq.m. Chronic Kidney Disease: Less than 60 mL/min/1.73 square meters End Stage Renal Disease: Less than 15 mL/min/1.73 square meters GFR/1.73 sq M.predicted among non-blacks MDRD (S/P/Bld) [Vol rate/Area] 69 ml/min/1.73sqm Invalid Interpretation Code AO Chemistry S Comment on above: Interpretive Data: GFR Population mean for , Non- Americans Ages 20-29 = 116 mL/min/1.73 sq.m. Ages 30-39 = 107 mL/min/1.73 sq.m. Ages 40-49 = 99 mL/min/1.73 sq.m. Ages 50-59 = 93 mL/min/1.73 sq.m. Ages 60-69 = 85 mL/min/1.73 sq.m. Ages 70+ = 75 mL/min/1.73 sq.m. Chronic Kidney Disease: Less than 60 mL/min/1.73 square meters End Stage Renal Disease: Less than 15 mL/min/1.73 square meters Globulin 3.8 G/dL Invalid Interpretation Code AO ADM SS Glucose [Mass/Vol] 81 mg/dL Normal 80 - 115 mg/dL AO ADM SS Hematocrit (Bld) [Volume fraction] 38.9 % Normal 37.0 - 47.0 % AO Workflow SS Hemoglobin (Bld) [Mass/Vol] 13.4 G/dL Normal 12.0 - 16.0 G/dL AO Workflow SS Lymphocyte, Absolute 1.4 103/mcL Normal 0.8 - 3 .9 10^3/mcL AO Workflow SS Lymphocytes/100 WBC (Bld) 24.0 % Normal 10.0 - 50.0 % AO Workflow SS MCH (RBC) [Entitic mass] 30.1 pg Normal 27.0 - 31.2 pg AO Workflow SS MCHC 34.3 G/dL Normal 33.0 - 37.0 G/dL AO Workflow SS MCV (RBC) [Entitic vol] 87.7 fL Normal 80.0 - 94.0 fL AO Workflow SS Monocyte, Absolute 0.6 103/mcL Normal 0.2 - 1.0 10^3/mcL AO Workflow SS Monocytes/100 WBC (Bld) 10.1 % Normal 1.7 - 13.0 % AO Workflow SS Neutrophil, Absolute 3.7 103/mcL Normal 2.9 - 6 .2 10^3/mcL AO Workflow SS Neutrophils/100 WBC (Bld) 63.6 % Normal 37.0 - 80.0 % AO Workflow SS Platelet mean volume (Bld) [Entitic vol] 9.9 fL Normal 7.4 - 10.4 fL AO Workflow SS Platelets (Bld) [#/Vol] 311 103/mcL Normal 130 - 400 10^3/mcL AO Workflow SS Potassium [Moles/Vol] 4.4 mmol/L Normal 3.5 - 5.1 mmol/L AO ADM SS Protein [Mass/Vol] 7.4 G/dL Normal 6.4 - 8.2 G/dL AO ADM SS RBC (Bld) [#/Vol] 4.44 106/mcL Normal 4.20 - 5.4 0 10^6/mcL AO Workflow SS Sodium [Moles/Vol] 138 mmol/L Normal 136 - 145 mmol/L AO ADM SS TSH Qn 1.40 m[IU]/L Normal 0.36 - 3.74 mcIU/mL AO ADM SS Urea nitrogen [Mass/Vol] 16 mg/dL Normal 7 - 18 mg/dL AO ADM SS Urea nitrogen/Creatinine [Mass ratio] 19 ratio Normal 7 - 27 ratio AO ADM SS WBC (Bld) [#/Vol] 5.9 103/mcL Normal 4.6 - 10.8 10^3/mcL AO Workflow SS TSHon 09-25-2023 TSH Qn 1.40 m[IU]/L Normal 0.36-3.74 [facility] ([place]) Comment on above: Performed By: #### T SH, VIDH, FT4, ADIFF, CBC, GFR, ANEU, CMP #### [address] [address] VIDHon 09-25-2023 Vit. D 25-Hydroxy 58.4 ng/mL Normal [facility] ([place]) Comment on above: Result Comment: Inte rpretive Values Based on Total 25(OH) Vitamin D: Deficient <20 ng/mL Insufficient 20 - <30 ng/mL Sufficient 30-100 ng/mL Performed By: #### T SH, VIDH, FT4, ADIFF, CBC, GFR, ANEU, CMP #### [address] [address] Absolute lymphocyte counton 06-02-2022 Lymphocytes Auto (Unsp spec) [#/Vol] 1.33 10*3/uL 0.83-4.51 [facility] Work Phone: Basophil percentageon 06-02- 2021 Basophils/100 WBC (Bld) 1.3 % 0-1 [facility] Work Phone: Bilirubin [Mass/Vol] 0.60 mg/dL 0.20-1.00 [facility] Work Phone: Comment on above: For patients on eltr ombopag therapy, use of Dimension [place] TBIL is not recommended. Chloride [Moles/Vol] 107 mmol/L 98-107 [facility] Work Phone: Cholesterol [Mass/Vol] 199 mg/dL <200 [facility] Work Phone: Comment on above: <200 mg/dL Desirable 200-240 mg/dL Borderline >240 mg/dL High Risk Eosinophils/100 WBC (Bld) 3.1 % 0-5 [facility] Work Phone: Glucose [Mass/Vol] 91 mg/dL 74-106 [facility] Work Phone: Neutrophils (Bld) [#/Vol] 2.0 10*3/uL 2.0-7.7 [facility] Work Phone: Neutrophils/100 WBC (Bld) 50.8 % 47-70 [facility] Work Phone: Potassium [Moles/Vol] 4.0 mmol/L 3.5-5.1 [facility] Work Phone: Protein [Mass/Vol] 7.6 g/dL 6.4-8.2 [facility] Work Phone: [phone] Sodium [Moles/Vol] 138 mmol/L 136-145 [facility] Work Phone: Triglyceride [Mass/Vol] 78 mg/dL <199 [facility] Work Phone: [phone] Comment on above: The drugs N-Acetylcy steine and Metamizole may falsely depress this assay.Serum Triglycerides Reference Interval Normal <150 mg/dL Borderline high 150 - 199 mg/dL High 200 - 499 mg/dL Very High > or = 500 mg/dL WBC (Bld) [#/Vol] 3.9 10*3/uL 4.4-11.0 [facility] Work Phone: Blood erythrocytes count (nu mber/volume)on 06-02-2022 RBC (Bld) [#/Vol] 4.57 10*6/uL 4.2-5.4 [facility] Work Phone: Blood hemoglobin measurement (mass/volume)on 06-02-2022 Hemoglobin (Bld) [Mass/Vol] 13.8 g/dL 12.0-15.0 [facility] Work Phone: Blood lymphocytes/100 leukoc yteson 06-02-2022 Lymphocytes/100 WBC (Bld) 34.0 % 19-41 [facility] Work Phone: Blood monocytes/100 leukocyt eson 06-02-2022 Monocytes/100 WBC (Bld) 10.5 % 0-10 [facility] Work Phone: Blood platelet mean volumeon 06-02-2022 Platelet mean volume (Bld) [Entitic vol] 11.1 fL 6.2-12.0 [facility] Work Phone: Determination of erythrocyte mean corpuscular volume (MCV)on 06-02-2022 MCV (RBC) [Entitic vol] 89.9 fL 81-99 [facility] Work Phone: Hematocrit Auto (Bld) [Volum e fraction]on 06-02-2022 Hematocrit (Bld) [Volume fraction] 41.1 % 37-47 [facility] Work Phone: Laboratory - Chemistry and C hemistry - challengeon 06-02-2022 ALP [Catalytic activity/Vol] 83 U/L 45-117 [facility] Work Phone: ALT [Catalytic activity/Vol] 51 U/L 13-56 [facility] Work Phone: CO2 [Moles/Vol] 23.0 mmol/L 21.0-32.0 [facility] Work Phone: Globulin (S) [Mass/Vol] 3.9 g/dL 2.2-4.2 [facility] Work Phone: Urea nitrogen/Creatinine [Mass ratio] 14.9 mg/mg 10-20 [facility] Work Phone: Laboratory - Hematology and Cell countson 06-02-2022 Erythrocyte distribution width (RBC) [Entitic vol] 41.4 fL 35.1-43.9 [facility] Work Phone: Erythrocyte distribution width (RBC) [Ratio] 12.6 % 11.6-14.6 [facility] Work Phone: Immature granulocytes/100 WBC (Bld) 0.300 % 0.0-0.9 [facility] Work Phone: Comment on above: IG% - Immature Granu locytes (promyelocytes, myelocytes and metamyelocytes) > 1% indicates that a LEFT SHIFT is Present. MCH (RBC) [Entitic mass] 30.2 pg 27.0-32.0 [facility] Work Phone: Nucleated RBC/100 WBC (Bld) [Ratio] 0 % 0-5 [facility] Work Phone: MCHC Auto (RBC) [Mass/Vol]on 06-02-2022 MCHC (RBC) [Mass/Vol] 33.6 g/dL 32-36 [facility] Work Phone: No Panel Informationon 06-02 Estimated GFR (MDRD) Amer 92 mL/min >60 [facility] Work Phone: Comment on above: GFR Calc Estimated GFR (MDRD) Non-Af Amer 76 mL/min >60 [facility] Work Phone: Comment on above: Non- GFR Calc Thyroid Stimulating Hormone (TSH) 1.43 uIU/mL 0.358-3.74 [facility] Work Phone: Vitamin D 25-Hydroxy 38.7 ng/mL [facility] Work Phone: Comment on above: Vitamin D 25(OH) Sta tus Range Deficiency <20 ng/mL (50nmol/L) Insufficiency 20 - 30 ng/mL (50 - 75 nmol/L) Sufficiency 30 - 100 ng/mL (75 - 250 nmol/L) Toxicity >100 ng/mL (>250 nmol/L) Platelets bldon 06-02-2022 Platelets (Bld) [#/Vol] 330 10*3/uL 150-450 [facility] Work Phone: Serum or plasma albumin austin urement (mass/volume)on 06-02-2022 Albumin [Mass/Vol] 3.7 g/dL 3.2-5.0 [facility] Work Phone: Serum or plasma albumin/glob ulin mass ratioon 06-02-2022 Albumin/Globulin [Mass ratio] 0.9 {ratio} 0.9-2.4 [facility] Work Phone: Serum or plasma calcium austin urement (mass/volume)on 06-02-2022 Calcium [Mass/Vol] 8.8 mg/dL 8.5-10.1 [facility] Work Phone: Serum or plasma cholesterol in HDL measurement (mass/volume)on 06-02-2022 Cholesterol in HDL [Mass/Vol] 53 mg/dL >40 [facility] Work Phone: Comment on above: The drugs N-Acetylcy steine and Metamizole may falsely depress this assay. Reference Range HDL <40 mg/dL Low HDL Cholesterol HDL >or= 60 mg/dL High HDL Cholesterol Serum or plasma cholesterol in VLDL measurement (mass/volume)on 06-02-2022 Cholesterol in VLDL [Mass/Vol] 16 mg/dL 5-40 [facility] Work Phone: Serum or plasma creatinine m easurement (mass/volume)on 06-02-2022 Creatinine [Mass/Vol] 0.81 mg/dL 0.55-1.02 [facility] Work Phone: Comment on above: The validity of the calculated GFR & GFRAA in patients over 70 years has not been determined. Clinical correlation is essential. Serum or plasma low density lipoprotein (LDL) cholesterol measurement (mass/volume)on 06-02-2022 Cholesterol in LDL [Mass/Vol] 130 mg/dL 0-130 [facility] Work Phone: Serum or plasma urea nitroge n measurement (mass/volume)on 06-02-2022 Urea nitrogen [Mass/Vol] 12 mg/dL 7-18 [facility] Work Phone: Thin prep Papanicolaou smear with manual screeningon 06-02-2022 Thin prep Papanicolaou smear with manual screening 31 U/L 15-37 [facility] Work Phone: Thin prep Papanicolaou smear with manual screening 8 5-15 [facility] Work Phone: Whole blood hemoglobin A1c/t otal hemoglobin ratio (mass fraction)on 06-02-2022 HbA1c (Bld) [Mass fraction] 5.2 % 3.8-5.6 [facility] Work Phone: Comment on above: Normal < 5.7 % Predi abetic 5.7 - 6.4 % Diabetic >or= 6.5 % Please note range changes. Vital Signs Date Time Vital Sign Value Performing Clinician Lian diaz 02-20-2024 07:59-0400 Diastolic Blood Pressure Non-Invasive 60 mm[Hg] ANA POPAPP [facility] 02-20-2024 07:59-0400 Heart rate 75 /min ANA POPAPP [facility] 02-20-2024 07:59-0400 Respiratory rate 15 /min ANA POPAPP [facility] 02-20-2024 07:59-0400 Systolic Blood Pressure Non-Invasive 111 mm[Hg] ANA FLAKITA DO [facility] 02-20-2024 07:44-0400 Diastolic Blood Pressure Non-Invasive 67 mm[Hg] ANA FLAKITA DO [facility] 02-20-2024 07:44-0400 Heart rate 67 /min ANA FLAKITA DO [facility] 02-20-2024 07:44-0400 Respiratory rate 15 /min ANA FLAKITA DO [facility] 02-20-2024 07:44-0400 Systolic Blood Pressure Non-Invasive 109 mm[Hg] ANA FLAKITA DO [facility] 02-20-2024 07:40-0400 Diastolic Blood Pressure Non-Invasive 68 mm[Hg] ANA FLAKITA DO [facility] 02-20-2024 07:40-0400 Heart rate 64 /min ANA FLAKITA DO [facility] 02-20-2024 07:40-0400 Respiratory rate 15 /min ANA FLAKITA DO [facility] 02-20-2024 07:40-0400 Systolic Blood Pressure Non-Invasive 101 mm[Hg] ANA FLAKITA DO [facility] 02-20-2024 07:34-0400 Body temperature 97.52 [degF] ANA FLAKITA DO [facility] 02-20-2024 07:30-0400 Respiratory Rate - Anes 10 br/min ANA FLAKITA DO [facility] 02-20-2024 07:25-0400 Respiratory Rate - Anes 17 br/min ANA FLAKITA DO [facility] 02-20-2024 07:20-0400 Respiratory Rate - Anes 12 br/min ANA FLAKITA DO [facility] 02-20-2024 07:01-0400 Body height 167.64 cm ANA FLAKITA DO [facility] 02-20-2024 07:01-0400 Body temperature 98.06 [degF] ANA FLAKITA DO [facility] 02-20-2024 07:01-0400 Body weight 56.82 kg ANA FLAKITA DO [facility] 02-20-2024 07:01-0400 Heart rate 69 /min ANA FLAKITA DO [facility] Encounters Encounter Date Encounter Type Care Provider Facility Start: 01-12-2025 End: 01-12-2025 ambulatory DAMION MAST AGENT CONTRACT CLERK-IMAGING ENGINEER [facility] Start: 01-12-2025 End: 01-12-2025 Patient encounter procedure DAMION MAST AGENT CONTRACT CLERK-IMAGING ENGINEER [facility] Start: 01-06-2025 End: 01-10-2025 ambulatory DAMION MAST AGENT CONTRACT CLERK-IMAGING ENGINEER [facility] Start: 01-06-2025 End: 01-10-2025 Outreach Lab DAMION MAST AGENT CONTRACT CLERK-IMAGING ENGINEER [facility] Start: 10-14-2024 End: 10-14-2024 ambulatory DAMION MAST Facility:[facility] Start: 09-16-2024 ambulatory DAMION MAST [facility] Start: 09-16-2024 End: 09-16-2024 ambulatory DAMION MAST Facility:[facility] Start: 07-22-2024 End: 07-22-2024 ambulatory Scarlet Gonzales Facility:[facility] Start: 07-22-2024 End: 07-22-2024 ambulatory Fozia Pierce Facility:[facility] Start: 06-03-2024 End: 06-03-2024 ambulatory SCARLET GONZALES MD Facility:[facility] Start: 06-03-2024 End: 06-03-2024 Patient encounter procedure SCARLET GONZALES MD [facility] Start: 05-16-2024 End: 05-16-2024 ambulatory SCARLET GONZALES MD Facility:[facility] Start: 05-16-2024 End: 05-16-2024 Patient encounter procedure SCARLET GONZALES MD [facility] Start: 02-27-2024 End: 02-27-2024 ambulatory DAMION MAST AGENT CONTRACT CLERK-IMAGING ENGINEER Facility:[facility] Start: 02-27-2024 End: 02-27-2024 Patient encounter procedure DAMION MAST AGENT CONTRACT CLERK-IMAGING ENGINEER [facility] Start: 02-20-2024 End: 02-20-2024 ambulatory ANA BOGGS Facility:[facility] Start: 02-20-2024 End: 02-20-2024 Minor Procedure ANA BOGGS DO [facility] Start: 01-25-2024 End: 01-29-2024 ambulatory DAMION MAST AGENT CONTRACT CLERK-IMAGING ENGINEER Facility:[facility] Start: 01-25-2024 End: 01-29-2024 Outreach Lab DAMION MAST AGENT CONTRACT CLERK-IMAGING ENGINEER [facility] Start: 01-11-2024 End: 01-11-2024 ambulatory DAMION MAST AGENT CONTRACT CLERK-IMAGING ENGINEER Facility:[facility] Start: 01-11-2024 End: 01-11-2024 Patient encounter procedure DAMION MAST AGENT CONTRACT CLERK-IMAGING ENGINEER [facility] Start: 09-25-2023 End: 09-29-2023 ambulatory DAMION MAST AGENT CONTRACT CLERK-IMAGING ENGINEER Facility:[facility] Start: 09-25-2023 End: 09-29-2023 Outreach Lab DAMION MAST AGENT CONTRACT CLERK-IMAGING ENGINEER [facility] Start: 06-02-2022 End: 06-02-2022 ambulatory [facility] Work Phone: Start: 06-02-2022 End: 06-02-2022 Patient encounter procedure [facility] Procedures Date Procedure Procedure Detail Performing Clinician Appendectomy DAMION MAST APR N-IMAGING ENGINEER Colonoscopy ANA FLAKITA DO Elbow region structu re (body structure) ANA FLAKITA DO Comment on above: right elbow surgery Hysterectomy DAMION MAST APR N-IMAGING ENGINEER Right hip region str ucture (body structure) DAMION MAST AGENT CONTRACT CLERK-IMAGING ENGINEER Comment on above: replacement Immunizations Immunization Date Immunization Notes Care Provider Abby gonzalez 07-20-2022 zoster vaccine recombinant DAMION MAST AGENT CONTRACT CLERK-IMAGING ENGINEER [facility] 01-09-2022 zoster vaccine recombinant; Translations: [Shingrix] DAMION MAST AGENT CONTRACT CLERK-IMAGING ENGINEER [facility] 08-07-2021 SARS-CoV-2 (COVID-19 ) mRNA-1273 vaccine DAMION MAST AGENT CONTRACT CLERK-IMAGING ENGINEER [facility] 12-07-2020 SARS-CoV-2 (COVID-19 ) mRNA-1273 vaccine; Translations: [Moderna COVID-19 Vaccine] DAMION MAST AGENT CONTRACT CLERK-IMAGING ENGINEER [facility] 11-09-2020 SARS-CoV-2 (COVID-19 ) mRNA-1273 vaccine; Translations: [Moderna COVID-19 Vaccine] DAMION BAILEY AGENT CONTRACT CLERK-IMAGING ENGINEER [facility] Payers Date Payer Category Payer Unknown [id number] [id number] Self-pay [id number] 2023 Unknown [id number] 2006 Unknown [employer] [facility] [id number] 1956 Unknown [id number] [id number]. 1956 Unknown [id number] 2.16.840.1.505337.3.579.2. 1956 Unknown [id number] [id number] 1956 Unknown [id number] 2.16.840.1.462096.3.579.2. 1956 Unknown [id number] 2.16.840.1.820302.3.579.2. 1956 Unknown [id number] 2.16.840.1.537226.3.579.2. 1956 Unknown [id number] 2.16.840.1.964823.3.579.2. 1956 Unknown [id number] 2.16.840.1.770665.3.579.2. 1956 Unknown [id number] 2.16.840.1.353554.3.579.2.62 Private Health Insurance [id number] Unknown [id number] 2.16.840.1.927406.3.579.2.462 Unknown [id number] 2.16.840.1.849300.3.579.2.462 Unknown [id number] 2.16.840.1.853247.3.579.2.462 Unknown [id number] 2.16.840.1.160534.3.579.2.462 Unknown [id number] 2.16.840.1.135105.3.579.2.462 Social History Date Type Detail Facility [facility]: [facility] Work Phone: Start: 1955 Sex Assigned At Female [facility] Start: 09-25-2023 End: 12-22-2024 Tobacco smoking status Never smoked tobacco (finding) [facility] Comment on above: daily tobacco smoke exposure Sexual Orientation [facility] ospital [facility] Start: 07-28-2019 Sex Female (finding) [facility] Functional Status Date Assessment Result Facility 02-20-2024 Functional Status Repositions self [facility] Mental Status Date Assessment Result Facility 02-20-2024 Mental Status Orientation Asse ssment Oriented x 4 [facility] Clinical Notes 02-20-2024 to 09-16-2024 Note Date & Type Note Facility 09-16-2024 Note [facility] Medical Records Department [address] [place] [address] History Physical Exam 09/16/24 1312 MR#: [id number] Acct: [id number] Name: REGINA TAYLOR GURVINDER Rep #: [id number] : [id number] 68 From: Marcelo Wood DO PCP: ELIUD DE LA ROSA Status[place] [facility] [place] Location: [place] [address] HPI - General General Date of Admission: 09/16/24 Date of Service: 09/16/24 Chief Complaint: Celiac disease HPI Narrative REGINA TAYLOR, is a 68 F who presents for an upper endoscopy for surveillance of her Celiac disease that has become refractory to gluten free diet. Over the past couple of years pt has been struggling with her health w/ anxiety, epigastric pain and overall malaise. Over two years she has had a 15lbs weight loss with inability to gain weight back. She is pretty active and has to eat a lot of protein drinks to stay a stable weight. She has been to naturopathic physicians and had numerous blood testing done which showed an elevation in the TTg IgA as well as anti gliadin antibody. Since then she has been avoiding gluten which has been helpful for her symptoms. She did have a recent colonoscopy with no abnormalities. She has never had an EGD. She has not seen a garden labourer for her Celiac. She denies constipation, diarrhea, blood in her stool, hearbturn or nausea. [facility] Medical History Wears glasses Wears contact lenses Post-menopausal Alcohol use Arthritis Low iron Non-smoker History of echocardiogram History of stress test Panic disorder Panic attacks Neuropathy Brain fog ADD (attention deficit disorder) Abdominal pain Osteoporosis Celiac disease Back pain Osteoarthritis Anxiety Home Medications ???Medication ???Instructions ???Recorded ???Last Taken ???Type multivitamin 1 tab PO DAILY 02/16/21 Unknown History calcium carbonate 500 mg PO QDAY 07/01/24 Unknown History BPC-157 1 cap PO DAILY 09/15/24 Unknown History NEUROMAG 144 mg PO DAILY 09/15/24 Unknown History ascorbic acid (vitamin C) 1,000 mg 1 g PO DAILY 09/15/24 Unknown History tablet (C-1000) vitamin B complex (Complex B-100 1 tab PO DAILY 09/15/24 Unknown History tablet,extended release) vitamin D3 250 mcg (10,000 1 cap PO DAILY 09/15/24 Unknown History unit)-vitamin K2 45 mcg capsule vitamin E 268 mg (400 unit) capsule 268 mg PO DAILY 09/15/24 Unknown History Allergy/AdvReac Type Severity Reaction Status Date / Time codeine AdvReac Mild gi upset Verified 09/16/24 12:30 meperidine (From Demerol) AdvReac Mild GI upset Verified 09/16/24 12:30 Family History Sister CAD (coronary artery disease) Cancer Breast cancer Mother Rheumatoid arthritis Surgical History Hx of colonoscopy Hx of breast surgery History of hysterectomy History of arthroscopic surgery of elbow History of revision of total hip arthroplasty History of right hip replacement History of appendectomy History of bilateral breast implants Social History Smoking Status: Never smoker alcohol intake: current alcohol intake frequency: a few times a week Alcohol type: wine substance use type: does not use what type of physical activity do you participate in: swimming and aerobics frequency: 3-4 times per week ROS Constitutional Constitutional: Denies fatigue, fever(s), poor appetite, weight gain or weight loss Gastrointestinal Gastrointestinal: Denies belching, bloating, change in bowel habits, change in stool character, chewing difficulty, coffee ground emesis, constipation, cramping, diarrhea, dyspepsia, dysphagia, early satiety, excessive flatus, fecal incontinence, heartburn, hematemesis, hematochezia, hemorrhoids, loose stools, melena, nausea, odynophagia, rectal bleeding, tenesmus, vomiting or weight changes Vital Signs Vital Signs Vital Signs: 09/16/24 12:31 09/16/24 12:31 Temperature 97.5 F L Temperature Source Temporal Pulse Rate 73 Respiratory Rate 18 Respiratory Pattern Normal Blood Pressure 122/84 H Blood Pressure Mean 96 Blood Pressure Source Monitor Blood Pressure Position Semi-Fowlers Blood Pressure Location Right Arm Pulse Ox 100 Oxygen Delivery Method Room Air Weight Weight: 125 lb 10.616 oz Body Mass Index (BMI) 20.2 Physical Exam Const alert, oriented x3, no apparent distress and healthy appearing General Appearance: cooperative GI normal to inspection, nondistended, normoactive bowel sounds, soft to palpation, non-tender and non- distended Percussion: normal to percussion Rectal Exam: deferred Assessment Plan Assessment/Plan (1) Celiac disease: P (more content not included)... [facility] 06-03-2024 Note ORIGINAL EXAMINATION: BONE ZGDDWGQAEXEN25/1/2024 10:44 am TECHNIQUE: Dual energy bone densitometry lumbar spine and left hip. COMPARISON: 02/01/2015 HISTORY: Reason for Exam: follow up osteoporosis Osteoporosis screening. FINDINGS: L1-L4: BMD= 0.641 g/cm2 T score= -3.7 Left femoral neck: BMD= 0.635 g/cm2 T score= -1.9 Left hip: BMD= 0.646 g/cm2 T score= -2.4 L1-L4 BMD change: -17.9 %, significant. Left hip BMD change: -17.8%, significant. FRAX score is unable to be documented as the patient's T-scores do not include regions required to calculate FRAX. The OF f/k/a NOF recommends that FDA-approved medical therapies be considered in post-menopausal women and men age >/= 50 years with a: * Hip or vertebral fracture, or * T-score of /= 20% for major osteoporotic fractures or * >/= 3% for hip fractures All treatment decisions require clinical judgement and consideration of individual patient factors, including patient preferences, comorbidities, previous drug use, risk factors not captured in the FRAX registered model (e.g., frailty, falls, vitamin D deficiency, increased bone turnover, interval significant decline in bone density) and possible under- or over-estimation of fracture risk by FRAX. IMPRESSION: Osteoporosis by WHO criteria. I have personally reviewed the images of this examination and agree with the resident's findings and interpretation. Interpreted by: Antonio Garcia MD Preliminary Report By: Nito Lehman Electronically signed By Antonio Garcia MD Dictated Date: 06/03/2024 10:45:50 AM Prelim Date: 06/03/2024 1:21:01 PM Sign Date: 06/03/2024 1:21:01 PM Ordering Provider: [facility] 02-20-2024 Evaluation + Plan note Extrac arnoldo from: Title:Clinical Document Author:ANA BOGGS ate:02/20/24 [place] ADMISSION HISTORY AN D PHYSICIAL CHIEF COMPLAINT: Colorectal cancer screening HISTORY OF PRESENT ILLNESS: Colorectal cancer screening, last colonoscopy 10 years ago REVIEW OF SYSTEMS: Constitutional: denies weight loss Cardiovascular:denies chest pain, palpitations Respiratory:denies shortness of breath Gastrointestinal:no abd pain Musculoskeletal: no arthralgias Skin: no rashes neuro ACTIVE PROBLEMS: (21) Abdominal pain (13431183) ADD - Attention deficit disorder (419888720) Anxiety (83348779) Arthrosis of multiple sites (8066280729) BMI 20.0-20.9, adult (3049794165) Brain fog (5147513430) Essential tremor (2470883808) Hip pain (93929585) Medicare annual wellness visit, subsequent (538509989) Memory changes (9618354209) Mixed hyperlipidemia (557452264) Neuropathy (5947100616) Osteoporosis (631730406) Panic attacks (527051551) Panic disorder (7192707528) Post-menopausal (889626534) Screening for breast cancer (931585218) Screening for cardiovascular condition (115051169) Screening for colon cancer (688195685) Vaginal atrophy (548549416) Weight loss (653363600) MEDICATIONS: Active Inpt Meds: None Active PRN Meds: None One Time Meds: None Active IV Meds: Lactated Ringers Infusion 1,000 mL Start: 02/20/24 7:00:00 EDT, Rate: 20 mL/hr, 02/20/24 7:00:00 EDT ALLERGIES: (1) NKA FAMILY HISTORY: SOCIAL HISTORY: PHYSICAL EXAM: VITALS: ZfwmlpNnteVBSnxytONTlI1LXF5DmgaZi(kg) 02/19 07:0136.7--713514OW54/19 56.8 24 Hr Tmax: 36.7 at 02/19 07:01 36 Hr Tmax: 36.7 at 02/19 07:01 Vital Signs are the last 5 in the past 48 hours. Weights display the last 5 within 7 days. Initial Wt: 02/19 56.8 kg 125 lb Current Wt: 02/19 56.8 kg 125 lb physical exam alert and oriented cardio; regular without murmur pulm; clear abd; soft, nontender LABS: No 36hr Lab Data DIAGNOSTICS: IMPRESSION: Colorectal cancer screening PLAN: Proceed with colonoscopy as discussed in the office Future Appointments Appointment Date:05/15/2024 11:00:00 AM Scheduled Provider:SCARLET GONZALES MD Location:[facility] Appointment Type:ENDO IT SECURITY CONSULTANT Appointment Date:12/22/2024 10:30:00 AM Scheduled Provider:DAMION BAILEY Location:[facility] Appointment Type:PC Wellness Medicare Future Scheduled Tests Laboratory* P[facility] Discharge instructions Patient Education 02/20/2024 07:43:00 Monitored Anesthesia Care, Care After Monitored Anesthesia Care, Care After These instructions provide you with information about caring for yourself after your procedure. Your health care provider may also give you more specific instructions. Your treatment has been plannedaccording to current medical practices, but problems sometimes occur. Call your health care provider if you have any problems or questions after your procedure. What can I expect after the procedure? After your procedure, you may: Feel sleepy for several hours. Feel clumsy and have poor balance for several hours. Feel forgetful about what happened after the procedure. Have poor judgment for several hours. Feel nauseous or vomit. Have a sore throat if you had a breathing tube during the procedure. Follow these instructions at home: For at least 24 hours after the procedure: Have a responsible adult stay with you. It is important to have someone help care for you until youare awake and alert. Rest as needed. Do not: ?Participate in activities in which you could fall or become injured. ?Drive. ?Use heavy machinery. ?Drink alcohol. ?Take sleeping pills or medicines that cause drowsiness. ?Make important decisions or sign legal documents. ?Take care of children on your own. Eating and drinking Follow the diet that is recommended by your health care provider. If you vomit, drink water, juice, or soup when you can drink without vomiting. Make sure you have little or no nausea before eating solid foods. General instructions Take hwtr-gkz-zusoccc and prescription medicines only as told by your health care provider. If you have sleep apnea, surgery and certain medicines can increase your risk for breathing problems. Follow instructions from your health care provider about wearing your sleep device: ?Anytime you are sleeping, including during daytime naps. ?While taking prescription pain medicines, sleeping medicines, or medicines that make you drowsy. If you smoke, do not smoke without supervision. Keep all follow-up visits as told by your health care provider. This is important. Contact a health care provider if: You keep feeling nauseous or you keep vomiting. You feel light-headed. You develop a rash. You have a fever. Get help right away if: You have trouble breathing. Summary For several hours after your procedure, you may feel sleepy and have poor judgment. Have a responsible adult stay with you for at least 24 hours or until you are awake and alert. This information is not intended to replace advice given to you by your health care provider. Make sure you discuss any questions you have with your health care provider. Document Released: 12/10/2016 Document Revised: 11/18/2018 Document Reviewed: 12/10/2016 [employer] Patient Education 2020 [employer]. 02/20/2024 07:42:50 Colonoscopy, Adult, Care After, Kpsa-wd-Akfw Colonoscopy, Adult, Care After This sheet gives you information about how to care for yourself after your procedure. Your doctor may also give you more specific instructions. If you have problems or questions, call your doctor. What can I expect after the procedure? After the procedure, it is common to have: A small amount of blood in your poop for 24 hours. Some gas. Mild cramping or bloating in your belly. Follow these instructions at home: General instructions For the first 24 hours after the procedure: ?Do not drive or use machinery. ?Do not sign important documents. ?Do not drink alcohol. ?Do your daily activities more slowly than normal. ?Eat foods that are soft and easy to digest. Take xdpb-zzb-hknpsvk or prescription medicines only as told by your doctor. To help cramping and bloating: Try walking around. Put heat on your belly (abdomen) as told by your doctor. Use a heat source that your doctor recommends, such as a moist heat pack or a heating pad. ?Put a towel between your skin and the heat source. ?Leave the heat on for 20 30 minutes. ?Remove the heat if your skin turns bright red. This is especially important if you cannot feel pain, heat, or cold. You can get burned. Eating and drinking Drink enough fluid to keep your pee (urine) clear or pale yellow. Return to your normal diet as told by your doctor. Avoid heavy or fried foods that are hard to digest. Avoid drinking alcohol for as long as told by your doctor. Contact a doctor if: You have blood in your poop (stool) 2 3 days after the procedure. Get help right away if: You have more than a small amount of blood in your poop. You see large clumps of tissue (blood clots) in your poop. Your belly is swollen. You feel sick to your stomach (nauseous). You throw up (vomit). You have a fever. You have belly pain that gets worse, and medicine does not help your pain. Summary After the procedure, it is common to have a small amount of blood in your poop. You may also have mild cramping and bloating in your belly. For the first 24 hours after the procedure, do not drive or use machinery, do not sign important documents, and do not drink alcohol. Get help right away if you have a lot of blood in your poop, feel sick to your stomach, have a fever, or have more belly pain. This information is not intended to replace advice given to you by your health care provider. Make sure you discuss any questions you have with your health care provider. Document Released: 09/22/2011 Document Revised: 06/20/2018 Document Reviewed: 05/14/2017 [employer] Patient Education 2020 [employer]. 02/20/2024 07:42:44 Colon Polyps Colon Polyps Polyps are tissue growths inside the body. Polyps can grow in many places, including the large intestine (colon). A polyp may be a round bump or a mushroom-shaped growth. You could have one polyp or several. Most colon polyps are noncancerous (benign). However, some colon polyps can become cancerous over time. Finding and removing the polyps early can help prevent this. What are the causes? The exact cause of colon polyps is not known. What increases the risk? You are more likely to develop this condition if you: Have a family history of colon cancer or colon polyps. Are older than 50 or older than 45 if you are . Have inflammatory bowel disease, such as ulcerative colitis or Crohn's disease. Have certain hereditary conditions, such as: ?Familial adenomatous polyposis. ?Fisher syndrome. ?Turcot syndrome. ?Peutz Jeghers syndrome. Are overweight. Smoke cigarettes. Do not get enough exercise. Drink too much alcohol. Eat a diet that is high in fat and red meat and low in fiber. Had childhood cancer that was treated with abdominal radiation. What are the signs or symptoms? Most polyps do not cause symptoms. If you have symptoms, they may include: Blood coming from your rectum when having a bowel movement. Blood in your stool. The stool may look dark red or black. Abdominal pain. A change in bowel habits, such as constipation or diarrhea. How is this diagnosed? This condition is diagnosed with a colonoscopy. This is a procedure in which a lighted, flexible scope is inserted into the anus and then passed into the colon to examine the area. Polyps are sometimes found when a colonoscopy is done as part of routine cancer screening tests. How is this treated? Treatment for this condition involves removing any polyps that are found. Most polyps can be removed during a colonoscopy. Those polyps will then be tested for cancer. Additional treatment may be needed depending on the results of testing. Follow these instructions at home: Lifestyle Maintain a healthy weight, or lose weight if recommended by your health care provider. Exercise every day or as told by your health care provider. Do not use any products that contain nicotine or tobacco, such as cigarettes and e-cigarettes. If you need help quitting, ask your health care provider. If you drink alcohol, limit how much you have: ?0 1 drink a day for women. ? 0 2 drinks a day for men. Be aware of how much alcohol is in your drink. In the [place] one drink equals one 12 oz bottle of beer (355 mL), one 5 oz glass of wine (148 mL), or one 1 oz shot of hard liquor (44 mL). Eating and drinking Eat foods that are high in fiber, such as fruits, vegetables, and whole grains. Eat foods that are high in calcium and vitamin D, such as milk, cheese, yogurt, eggs, liver, fish, and broccoli. Limit foods that are high in fat, such as fried foods and desserts. Limit the amount of red meat and processed meat you eat, such as hot dogs, sausage, waddell, and lunch meats. General instructions Keep all follow-up visits as told by your health care provider. This is important. ?This includes having regularly scheduled colonoscopies. ?Talk to your health care provider about when you need a colonoscopy. Contact a health care provider if: You have new or worsening bleeding during a bowel movement. You have new or increased blood in your stool. You have a change in bowel habits. You lose weight for no known reason. Summary Polyps are tissue growths inside the body. Polyps can grow in many places, including the colon. Most colon polyps are noncancerous (benign), but some can become cancerous over time. This condition is diagnosed with a colonoscopy. Treatment for this condition involves removing any polyps that are found. Most polyps can be removed during a colonoscopy. This information is not intended to replace advice given to you by your health care provider. Make sure you discuss any questions you have with your health care provider. Document Released: 05/16/2005 Document Revised: 12/05/2018 Document Reviewed: 12/05/2018 [employer] Patient Education 2020 [employer]. Follow Up Care 01/17/2024 07:58:40 With:ANA BOGGS DO, Clinical Gastroenterology Address: [address] [place] [address] [place] [address]- [phone] When: Unknown Comments:CALL DR ORONA OFFICE WITH ANY QUESTIONS OR CONCERNS. GO TO THE EMERGENCY ROOM WITH ANY URGENT CONCERNS. ONE POLYP WAS FOUND AND REMOVED AND SENT TO THE LAB. YOUR NEXT COLONOSCOPY SHOULD BE IN 5 YEARS, OR SOONER IF YOU HAVE SYMPTOMS. With:DAMION BAILEY Address: [address] [place] [phone] [phone] When: Unknown [facility] 06-19-2024 Note Discharge Instructions Thank you for allowing [facility] to assist you with your healthcare needs. The following is importantdischarge information regarding your hospital visit. Your Care Team DAMION BAILEY DR. 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 GO TO THE EMERGENCY ROOM WITH ANY URGENT CONCERNS. ONE POLYP WAS FOUND AND REMOVED AND SENT TO THE LAB. YOUR NEXT COLONOSCOPY SHOULD BE IN 5 YEARS, OR SOONER IF YOU HAVE SYMPTOMS. Follow Up with DAMION BAILEY Where:[address] [facility] [place] [phone] The Following Activity and Diet Have Been Ordered for You Discharge Activity - Ordered -- Driving Restricted, No driving until tomorrow, 02/20/24 7:00:00 EDT Discharge Return to Work, School, or Sports (Discharge Return to status) - Ordered -- May return to: work, 02/20/24 7:00:00 EDT Discharge Diet - Ordered -- Type of Diet: Regular Diet, 02/20/24 7:00:00 EDT Allergies NKA Medications Please ask your primary doctor or pharmacist before taking any other medication not listed, including over the counter drugs, herbal medications, vitamins and or supplements as they may interact withyour home medications. What How Much When Why Instructions Last Dose Unchanged calcium carbonate (calcium carbonate 500 mg(200 mg elemental calcium) oral tablet, chewable) 1 tab(s) Chewed Once a day Unchanged conjugated estrogens topical (Premarin 0.625 mg/ g vaginal cream with applicator) 1 gram(s) Vaginal Once a day (in the evening) Duration: 21 Days APPLY 1/ 2 APPLICATOR VAGINALLY TWICE WEEKLY Unchanged herbal/ nutritional product (Probiotic) Unchanged LORazepam (LORazepam 1 mg oral tablet) 0.5 tab(s) by mouth Every 6 hours Anxiety Duration: 30 Days TAKE 1/ 2TABLET BY MOUTH EVERY 6 HOURS NEEDED Unchanged meloxicam (meloxicam 7.5 mg oral tablet) 1 tab(s) by mouth Once a day Duration: 30 Days Take twice daily if pain is significant. Unchanged Misc Medication (vitamin D 3 plus K) Unchanged Miscellaneous Vaccine (b replete) Unchanged multivitamin (Vitamin B Complex 100) Unchanged polyethylene glycol 3350 with electrolytes (GaviLyte-G With Lemon Flavor Pack oral powderfor reconstitution) Unchanged polyethylene glycol 3350 with electrolytes (PEG-3350 with Electrolytes (Eqv-GoLYTELY) oral powder for reconstitution) See instructions Take as directed 1 day before colonoscopy. Follow instructions as provided by your GI provider at [facility]. Unchanged vitamin E by mouth Please take this list to your next doctor s visit. Bring all medications you take, including over the counter medications, herbals and other supplements with you to your doctor s visit. Patients and families are reminded to discard old lists and to update any records with all medication providers or retail pharmacies. Education Materials Monitored Anesthesia Care, Care After These instructions provide you with information about caring for yourself after your procedure. Your health care provider may also give you more specific instructions. Your treatment has been plannedaccording to current medical practices, but problems sometimes occur. Call your health care provider if you have any problems or questions after your procedure. What can I expect after the procedure? After your procedure, you may: Feel sleepy for several hours. Feel clumsy and have poor balance for several hours. Feel forgetful about what happened after the procedure. Have poor judgment for several hours. Feel nauseous or vomit. Have a sore throat if you had a breathing tube during the procedure. Follow these instructions at home: For at least 24 hours after the procedure: Have a responsible adult stay with you. It is important to have someone help care for you until youare awake and alert. Rest as needed. Do not: ? Participate in activities in which you could fall or become injured. ? Drive. ? Use heavy machinery. ? Drink alcohol. ? Take sleeping pills or medicines that cause drowsiness. ? Make important decisions or sign legal documents. ? Take care of children on your own. Eating and drinking Follow the diet that is recommended by your health care provider. If you vomit, drink water, juice, or soup when you can drink without vomiting. Make sure you have little or no nausea before eating solid foods. General instructions Take prkp-pfu-ktnqlzj and prescription medicines only as told by your health care provider. If you have sleep apnea, surgery and certain medicines can increase your risk for breathing problems. Follow instructions from your health care provider about wearing your sleep device: ? Anytime you are sleeping, including during daytime naps. ? While taking prescription pain medicines, sleeping medicines, or medicines that make you drowsy. If you smoke, do not smoke without supervision. Keep all follow-up visits as told by your health care provider. This is important. Contact a health care provider if: You keep feeling nauseous or you keep vomiting. You feel light-headed. You develop a rash. You have a fever. Get help right away if: You have trouble breathing. Summary For several hours after your procedure, you may feel sleepy and have poor judgment. Have a responsible adult stay with you for at least 24 hours or until you are awake and alert. This information is not intended to replace advice given to you by your health care provider. Make sure you discuss any questions you have with your health care provider. Document Released: 12/10/2016 Document Revised: 11/18/2018 Document Reviewed: 12/10/2016 [employer] Patient Education 2020 [employer]. Colonoscopy, Adult, Care After This sheet gives you information about how to care for yourself after your procedure. Your doctor may also give you more specific instructions. If you have problems or questions, call your doctor. What can I expect after the procedure? After the procedure, it is common to have: A small amount of blood in your poop for 24 hours. Some gas. Mild cramping or bloating in your belly. Follow these instructions at home: General instructions For the first 24 hours after the procedure: ? Do not drive or use machinery. ? Do not sign important documents. ? Do not drink alcohol. ? Do your daily activities more slowly than normal. ? Eat foods that are soft and easy to digest. Take tida-otp-tljtpsf or prescription medicines only as told by your doctor. To help cramping and bloating: Try walking around. Put heat on your belly (abdomen) as told by your doctor. Use a heat source that your doctor recommends, such as a moist heat pack or a heating pad. ? Put a towel between your skin and the heat source. ? Leave the heat on for 20 30 minutes. ? Remove the heat if your skin turns bright red. This is especially important if you cannot feel pain, heat, or cold. You can get burned. Eating and drinking Drink enough fluid to keep your pee (urine) clear or pale yellow. Return to your normal diet as told by your doctor. Avoid heavy or fried foods that are hard to digest. Avoid drinking alcohol for as long as told by your doctor. Contact a doctor if: You have blood in your poop (stool) 2 3 days after the procedure. Get help right away if: You have more than a small amount of blood in your poop. You see large clumps of tissue (blood clots) in your poop. Your belly is swollen. You feel sick to your stomach (nauseous). You throw up (vomit). You have a fever. You have belly pain that gets worse, and medicine does not help your pain. Summary After the procedure, it is common to have a small amount of blood in your poop. You may also have mild cramping and bloating in your belly. For the first 24 hours after the procedure, do not drive or use machinery, do not sign important documents, and do not drink alcohol. Get help right away if you have a lot of blood in your poop, feel sick to your stomach, have a fever, or have more belly pain. This information is not intended to replace advice given to you by your health care provider. Make sure you discuss any questions you have with your health care provider. Document Released: 09/22/2011 Document Revised: 06/20/2018 Document Reviewed: 05/14/2017 [employer] Patient Education 2020 [employer]. Colon Polyps Polyps are tissue growths inside the body. Polyps can grow in many places, including the large intestine (colon). A polyp may be a round bump or a mushroom-shaped growth. You could have one polyp or several. Most colon polyps are noncancerous (benign). However, some colon polyps can become cancerous over time. Finding and removing the polyps early can help prevent this. What are the causes? The exact cause of colon polyps is not known. What increases the risk? You are more likely to develop this condition if you: Have a family history of colon cancer or colon polyps. Are older than 50 or older than 45 if you are . Have inflammatory bowel disease, such as ulcerative colitis or Crohn's disease. Have certain hereditary conditions, such as: ? Familial adenomatous polyposis. ? Fisher syndrome. ? Turcot syndrome. ? Peutz Jeghers syndrome. Are overweight. Smoke cigarettes. Do not get enough exercise. Drink too much alcohol. Eat a diet that is high in fat and red meat and low in fiber. Had childhood cancer that was treated with abdominal radiation. What are the signs or symptoms? Most polyps do not cause symptoms. If you have symptoms, they may include: Blood coming from your rectum when having a bowel movement. Blood in your stool. The stool may look dark red or black. Abdominal pain. A change in bowel habits, such as constipation or diarrhea. How is this diagnosed? This condition is diagnosed with a colonoscopy. This is a procedure in which a lighted, flexible scope is inserted into the anus and then passed into the colon to examine the area. Polyps are sometimes found when a colonoscopy is done as part of routine cancer screening tests. How is this treated? Treatment for this condition involves removing any polyps that are found. Most polyps can be removed during a colonoscopy. Those polyps will then be tested for cancer. Additional treatment may be needed depending on the results of testing. Follow these instructions at home: Lifestyle Maintain a healthy weight, or lose weight if recommended by your health care provider. Exercise every day or as told by your health care provider. Do not use any products that contain nicotine or tobacco, such as cigarettes and e-cigarettes. If you need help quitting, ask your health care provider. If you drink alcohol, limit how much you have: ? 0 1 drink a day for women. ? 0 2 drinks a day for men. Be aware of how much alcohol is in your drink. In the [place] one drink equals one 12 oz bottle of beer (355 mL), one 5 oz glass of wine (148 mL), or one 1 oz shot of hard liquor (44 mL). Eating and drinking Eat foods that are high in fiber, such as fruits, vegetables, and whole grains. Eat foods that are high in calcium and vitamin D, such as milk, cheese, yogurt, eggs, liver, fish, and broccoli. Limit foods that are high in fat, such as fried foods and desserts. Limit the amount of red meat and processed meat you eat, such as hot dogs, sausage, waddell, and lunch meats. General instructions Keep all follow-up visits as told by your health care provider. This is important. ? This includes having regularly scheduled colonoscopies. ? Talk to your health care provider about when you need a colonoscopy. Contact a health care provider if: You have new or worsening bleeding during a bowel movement. You have new or increased blood in your stool. You have a change in bowel habits. You lose weight for no known reason. Summary Polyps are tissue growths inside the body. Polyps can grow in many places, including the colon. Most colon polyps are noncancerous (benign), but some can become cancerous over time. This condition is diagnosed with a colonoscopy. Treatment for this condition involves removing any polyps that are found. Most polyps can be removed during a colonoscopy. This information is not intended to replace advice given to you by your health care provider. Make sure you discuss any questions you have with your health care provider. Document Released: 05/16/2005 Document Revised: 12/05/2018 Document Reviewed: 12/05/2018 [employer] Patient Education 2020 [employer]. Additional Information VACCINATE! IT SAVES LIVES! Members of the community who have not yet received the COVID-19 vaccine and would like to receive it can visit one of [facility] vaccine clinics. There are many vaccine clinic locations within the [facility]. For locations and available times, please visit https://gettheshot.coronavirus.[place].gov/. It is important to note that some COVID mobile vaccine clinics are held outdoors and may be canceled in rainy or stormy conditions. To learn more about pediatric vaccinations (ages 5-11), we invite you to visit the [facility] webpage. https://www.[employer].org/pages/0646-Tbfim-Hzflmhtswor-Kadpkorkeq-Ycipl-Tcd stions.htmlTo learn more about the COVID-19 vaccine, we invite you to visit the CDC website for a list of frequently asked questions.https://www.cdc.gov/coronavirus/2019-ncov/vaccines/faq.html [facility] Patient Portal Access Instructions: Stay connected with your healthcare team and access your personal medical information anytime with the [facility] Patient Portal. Please follow the directions below to create your [facility] account: 1.Access the email account you provided upon registration to the hospital/physician office.2.Look for an invitation email from [facility].3.Open the email and access the invitation link: AcceptInvitation to [facility].4.Fill in the required tellez to create your account. To access your account, visit [employer]. Click the blue button labeled Access Patient Portal and then log in with the username and password that you created in the steps above. You will be able to view your test results, lab results, a summary of your visits, upcoming appointments and more. There is also a convenient messaging option where you can send secure messages to your p rovider. In addition, you will have the ability to download any documents or summaries to your computer and/or send the information securely to a physician. Remember that your healthcare information is confidential, so carefully consider who you will allowto register on the [facility] Patient Portal for access to your information. You can also access the [facility] Patient Portal on the [place] [facility] jennifer. Simply click on Patient Portal and then log into your account. If you would like to receive a full copy of your medical records, please contact the [facility] Medical Records Department by calling [phone], Sunday through Sunday between 8 a.m. and 4:30 p.m. HOW TO SAFELY DISPOSE OF PRESCRIPTION MEDICATIONS Please use one of the following methods to safely dispose of your unused medications. 1.Use a drug disposal kit: the drug disposal pouch allows you to safely discard your old and unuseddrugs. Ask your nurse to give you one when you are discharged.2.Visit a local take-back location: Many local pharmacies and police departments have programs that collect old and unwanted prescriptiondrugs. Call your local pharmacy or go to http://[employer].Lola Pirindola/0P5Vj0q to find one close to you.3.Make use of household items: Use cat litter or old coffee grounds to dispose medications if other options arenot available. Mix your drugs with these household products, seal them in an airtight container andthrow it into the garbage. Call [facility]: [phone] to be sure your drugs can be disposed of in this way. Some medicines may require a different approach.4.Never flush your medications down the toilet. IF YOU HAVE BEEN PRESCRIBED AN OPIOID FOR PAIN If you have been prescribed an opioid (such as hydrocodone, oxycodone or morphine), it is critical to understand the possible side effects and risks of opioid pain medications. Even when taken as directed, opioids can have several side effects including: Tolerance, meaning you might need to take more of a medication for the same pain relief. Nausea, vomiting and/or constipation. Sleepiness, dizziness, dry mouth, confusion, depression or itching. Physical dependence, meaning you have withdrawal symptoms when a medication is stopped, can develop within a few days. KNOW YOUR RESPONSIBILITIES It is important to know exactly how much and how often to take the opioid pain medications you are prescribed. Never take opioids in higher amounts or more often than prescribed. Do not combine opioids with alcohol or other drugs that cause drowsiness, such as benzodiazepines, also known as benzos, including diazepam and alprazolam, muscle relaxants or sleep aids. Never sell or share prescription opioids. This is illegal. Store opioids in a secure place and out of reach of others (including children, family, friends and visitors). The last page of this document has been signed and retained as a CHART COPY. Signatures Patient Education Materials Monitored Anesthesia Care, Care After Colonoscopy, Adult, Care After, Fnhq-nn-Nevf Colon Polyps Medication Leaflets My discharge plan and instructions have been reviewed and explained to me and I,REGINA TAYLOR understand my current condition and have read and understand these discharge instructions. I have received a written copy of the plan/instructions. If I have questions, I am aware that I should contact my doctor. 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 Anesthesia MAC Estimated Blood Loss None Specimen(s) Colon polyp Complications None Technique The patient was evaluated in the preoperative area and surgical consent was obtained. She was then brought to endoscopy and monitored on pulse oximetry, cardiac monitoring and placed on supplemental oxygen. She was placed in left lateral decubitus position and a surgical timeout was obtained. Sedation was provided by anesthesia. A digital exam revealed an external hemorrhoid. The colonoscope was carefully inserted into the rectum advanced towards the cecum. Cecal pouch appeared normal. Intubation ileum was normal. The scope was then carefully directed under 6-minute withdrawal with a good prep. A 5 mm polyp was identified within the ascending colon. This was injected mucosally with epinephrine and saline for lifting purposes. A cold snare was used to remove the polyp. The polyp was retrieved. The scope then carefully directed the remaining portion of the colon which was unremarkable. Retroflexion in the rectum was normal. The scope was removed. Patient was then transferred to the recovery area in stable condition vital signs. Discharge summary: 1. Final Diagnosis: 1. 5 mm ascending colon polyp 2. External hemorrhoid 2. Outcome: Patient tolerated procedure well without complication 3. Disposition: Patient was discharged home to follow previous diet and medications 4. Follow-up care: Follow-up with primary care physician as scheduled. Repeat exam in 5 years Digitally Signed by ANA BOGGS DO on 02/20/2024 07:34 AM [facility]06-19-2024 Note [place]DT ADMISSION HISTORY AND PHYSICIAL CHIEF COMPLAINT: Colorectal cancer screening HISTORY OF PRESENT ILLNESS: Colorectal cancer screening, last colonoscopy 10 years ago REVIEW OF SYSTEMS: Constitutional: denies weight loss Cardiovascular:denies chest pain, palpitations Respiratory:denies shortness of breath Gastrointestinal:no abd pain Musculoskeletal: no arthralgias Skin: no rashes neuro ACTIVE PROBLEMS: (21) Abdominal pain (11866022) ADD - Attention deficit disorder (755830871) Anxiety (61457537) Arthrosis of multiple sites (3906533738) BMI 20.0-20.9, adult (1749115533) Brain fog (8670208430) Essential tremor (3016015787) Hip pain (76233555) Medicare annual wellness visit, subsequent (046814246) Memory changes (8785712260) Mixed hyperlipidemia (634782442) Neuropathy (3996911945) Osteoporosis (884188630) Panic attacks (298833120) Panic disorder (8901811033) Post-menopausal (744876152) Screening for breast cancer (921400673) Screening for cardiovascular condition (367790082) Screening for colon cancer (026949454) Vaginal atrophy (276173924) Weight loss (241213781) MEDICATIONS: Active Inpt Meds: None Active PRN Meds: None One Time Meds: None Active IV Meds: Lactated Ringers Infusion 1,000 mL Start: 02/20/24 7:00:00 EDT, Rate: 20 mL/hr, 02/20/24 7:00:00 EDT ALLERGIES: (1) NKA FAMILY HISTORY: SOCIAL HISTORY: PHYSICAL EXAM: VITALS: UdyjmzJokiSSAqtrlIDGsA0UPD1QaiyPl(kg) 02/19 07:0136.7--076081YG00/19 56.8 24 Hr Tmax: 36.7 at 02/19 07:01 36 Hr Tmax: 36.7 at 02/19 07:01 Vital Signs are the last 5 in the past 48 hours. Weights display the last 5 within 7 days. Initial Wt: 02/19 56.8 kg 125 lb Current Wt: 02/19 56.8 kg 125 lb physical exam alert and oriented cardio; regular without murmur pulm; clear abd; soft, nontender LABS: No 36hr Lab Data DIAGNOSTICS: IMPRESSION: Colorectal cancer screening PLAN: Proceed with colonoscopy as discussed in the office Digitally Signed by ANA BOGGS DO on 02/20/2024 07:09 AM [facility]06-19-2024 Anesthesiology Consult note Patient: REGINA TAYLOR Age: 68 years Sex: Female : 1955 Associated Diagnoses: None Author: YOAV DOWD APRN-BOW [employer]ER [employer] Preoperative Information Anesthesia history Patient's history: negative. Family's history: negative. Health Status Allergies: Allergic Reactions (Selected) NKA, Allergies (1) ActiveSeverityReaction NKANone Documented Current medications: (Selected) Inpatient Medications Ordered Lactated Ringers Infusion 1,000 mL: 20 mL/hr, Intravenous Prescriptions Prescribed LORazepam 1 mg oral tablet: 0.5 mg, 0.5 tab(s), Oral, q6hr, for 30 day(s), TAKE 1/2TABLET BY MOUTH EVERY 6 HOURS NEEDED, 60 tab(s), 2 Refill(s) PEG-3350 with Electrolytes (Eqv-GoLYTELY) oral powder for reconstitution: See Instructions, Take asdirected 1 day before colonoscopy. Follow instructions as provided by your GI provider at [facility]., 1 EA, 0 Refill(s) Premarin 0.625 mg/g vaginal cream with applicator: 1 gram(s), Vaginal, qPM, for 21 day(s), APPLY 1/2 APPLICATOR VAGINALLY TWICE WEEKLY, 30 gram(s), 5 Refill(s) meloxicam 7.5 mg oral tablet: 7.5 mg, 1 tab(s), Oral, qDay, for 30 day(s), Take twice daily if painis significant., 30 tab(s), 5 Refill(s) Documented Medications Documented GaviLyte-G With Lemon Flavor Pack oral powder for reconstitution: 0 Refill(s) Probiotic: 0 Refill(s) Vitamin B Complex 100: 0 Refill(s) b replete: 0 Refill(s) calcium carbonate 500 mg (200 mg elemental calcium) oral tablet, chewable: 500 mg, 1 tab(s), Chewed, qDay vitamin D 3 plus K: 0 Refill(s) vitamin E: Oral, 0 Refill(s), Medications (1) Active Scheduled: (0) Continuous: (1) Lactated Ringers Infusion 1,000 mL 1,000 mL, Intravenous, 20 mL/hr PRN: (0) Problem list: Medical Abdominal pain / SNOMED CT 16559247 / Confirmed ADD - Attention deficit disorder / SNOMED CT 046886508 / Confirmed Anxiety / SNOMED CT 59400803 / Confirmed Arthrosis of multiple sites / SNOMED CT 0560995055 / Confirmed Vaginal atrophy / SNOMED CT 672586624 / Confirmed BMI 20.0-20.9, adult / SNOMED CT 4241543021 / Confirmed Essential tremor / SNOMED CT 9606048268 / Confirmed Hip pain / SNOMED CT 83528093 / Confirmed Brain fog / SNOMED CT 2162396159 / Confirmed Memory changes / SNOMED CT 6300769233 / Confirmed Mixed hyperlipidemia / SNOMED CT 174857624 / Confirmed Neuropathy / SNOMED CT 7576215741 / Confirmed Osteoporosis / SNOMED CT 466416118 / Confirmed Panic attacks / SNOMED CT 182854224 / Confirmed Panic disorder / SNOMED CT 8581576974 / Confirmed Screening for breast cancer / SNOMED CT 710762277 / Confirmed Screening for colon cancer / SNOMED CT 863208370 / Confirmed Screening for cardiovascular condition / SNOMED CT 896203492 / Confirmed Medicare annual wellness visit, subsequent / SNOMED CT 875390460 / Confirmed Post-menopausal / SNOMED CT 403899328 / Confirmed Weight loss / SNOMED CT 669605004 / Confirmed, Active Problems (21) Abdominal pain ADD - Attention deficit disorder Anxiety Arthrosis of multiple sites BMI 20.0-20.9, adult Brain fog Essential tremor Hip pain Medicare annual wellness visit, subsequent Memory changes Mixed hyperlipidemia Neuropathy Osteoporosis Panic attacks Panic disorder Post-menopausal Screening for breast cancer Screening for cardiovascular condition Screening for colon cancer Vaginal atrophy Weight loss Histories Past Medical History: No active or resolved past medical history items have been selected or recorded. Family History: Heart disease Mother (Amy Campo) Father (Momo Campo) HTN - Hypertension Father (Momo Campo) Procedure history: Hysterectomy (484261824). Right hip (712254209). Comments: 02/15/2018 14:42 EDT - Alison Cottrell RN replacement Appendectomy (086722276). Elbow ([id number]). Comments: 02/20/2024 6:56 EDT - Elena Solomon RN right elbow surgery Colonoscopy (003151136). 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 She was previously to Devon. Devon was killed in a tree accident. They had 2 children son and daughter. Nutrition/Health 02/20/2024 Caffeine intake amount: 1 cup of coffee a day Physical Examination Vital Signs 02/20/2024 7:01 EDT Temperature Temporal Artery 36.7 DegC Peripheral Pulse Rate 69 bpm Respiratory Rate 16 br/min Systolic Blood Pressure Non-Invasive 132 mmHg Diastolic Blood Pressure Non-Invasive 79 mmHg Vital Signs (last 24 hrs) Last Charted Temp Fcfqsehm07.7 DegC (FEB 19 07:01) DZA380 mmHg (FEB 19 07:) DBP79 mmHg (FEB 19:) Measurements from flowsheet : Measurements 02/20/2024 7:01 EDT Height 167.64 cm Admission Weight 56.82 kg [place] Body Weight 59.30 kg Admission Body Mass Index 20.22 m2 Pain assessment: Pain Assessment 02/20/2024 7:01 EDT Primary Pain Intensity 0 Pain Scale Type 0-10 Pain scale . General: Alert and oriented. Airway: Normal temporomandibular joint mobility. Dentition Evaluation: Denies loose/chipped teeth. Respiratory: Lungs are clear to auscultation, Respirations are non-labored. Cardiovascular: Normal rate, Regular rhythm. Neurologic: Alert, Oriented. Review / Management Results review: No qualifying data available , Lab results 02/20/2024 7:01 EDT Height 167.64 cm Admission Weight 56.82 kg [place] Body Weight 59.30 kg Admission Body Mass Index 20.22 m2 Temperature Temporal Artery 36.7 DegC Peripheral Pulse Rate 69 bpm Respiratory Rate 16 br/min Systolic Blood Pressure Non-Invasive 132 mmHg Diastolic Blood Pressure Non-Invasive 79 mmHg Primary Pain Intensity 0 Pain Scale Type 0-10 Pain scale Respirations Unlabored Respiratory Pattern Regular All Lobes Breath Sounds Clear Cough None Oxygen Therapy Room air Oxygen Saturation 98 % Abdomen Description Non-distended, Soft Swallowing Disorder None Bowel Sounds All Quadrants Present Urinary Elimination Voiding, no difficulties Skin Temperature Warm Skin Description Three Way, Normal for ethnicity, Dry Skin Moisture General Dry IV Present Present Neurological Symptoms Patient denies Characteristics of Speech Clear Strength All Extremities Strong Tone All Extremities Normal Sensation All Extremities Intact Allergies Yes Anesthesia Extension Set Applied Yes Gum Puller On Yes Consent Form Signed Yes Patient Dressed In Hospital gown History & Physical Update On Chart Yes History & Physical On Chart Yes Bowel Prep Completed Yes Obstructive Sleep Apnea Assess Completed Yes Assistive Device None Positioning Repositions self Activity Status ADL Awake Standard Safety ID band on, Call device within reach, Bed in low position, Wheels locked Patient ID Band on and Verified Yes Implants Verified Yes Pacemaker/AICD Verified Yes Site Verified by Patient/Family Yes Blood Consent Signed Yes Last Fluid Intake 02/20/2024 5:00 Last Food Intake 02/11/2024 18:00 Last Void 02/20/2024 7:02 02/20/2024 6:57 EDT Designated Person #1 We May Share PHI Designated Person #1 We May Share PHI Designated Person #1 Relationship Spouse Designated Person #2 We May Share PHI dina ramey [phone] Designated Person #2 Relationship Sibling Privacy Restrictions Requested None Status No, per patient Sensory Deficits None Sleep Apnea Snore No Sleep Apnea Tired No Sleep Apnea Obstruction No Sleep Apnea Pressure No Sleep Apnea BMI No Sleep Apnea Age Yes Sleep Apnea Neck No Sleep Apnea Gender No Sleep Apnea Score 1 Diagnosed With Sleep Apnea No Advanced Directives Yes Advance Directive Type [place] Durable Power of Party Supply [facility] [place] [place] Declaration (Living Will) Advance Directive Location Patient instructed to bring in copy Infectious Disease Symptoms Patient states no symptoms Infectious Disease Recent Exposure No Alcohol and Drug Use No Employee of Institutional Living No Health Care Employee No History of Exposure to TB No History of Positive Chest X-Ray for TB No History of Positive TB Skin Test No Homeless No Known Immunosuppression No Recent Immigrant No Resident of Institutional Living No Bloody Sputum No Fatigue No Fever No Loss of Appetite No Night Sweats No Persistent Cough > 3 Weeks No Weight Loss No Barriers to Learning None evident Teaching Method Explanation Preferred Spoken Language Bangladeshi Preferred Written Language Bangladeshi Teaching Evaluation No further teaching needed Safety Brochure Information Reviewed Unable to complete Juan Quintero Video Viewed No Information Given by Patient Patient's Current Physicians dr damion bailey. Discharge To, Anticipated Home independently Prev Test Positive/Diagnosis w/COVID-19 Yes Previous COVID-19 Positive Date 2019 2120 Current Quarantine/Isolated any Illness No Any Contact with Sick Animals/Birds No Traveled Anywhere in Last 30 Days No Lost Weight Unintentionally Recently No Eat Poorly Due to Decreased Appetite No Total MST Score 0 No Personal Devices, Patient Valuables None, Glasses Anesthesia/Transfusions Prior anesthesia Admission Note-Nursing Same Day Patient History . Assessment and Plan [place] [employer]esthesi[employer] (ASA) physical status classification: Class II. Anesthetic Preoperative Plan Anesthetic technique: MAC. Postoperative pain management: Per surgeon. Risks discussed: nausea, vomiting, hypotension, allergic reaction, serious complications. Informed consent: signed by patient. Digitally Signed by YOAV DOWD on 02/20/2024 07:07 AM [facility] Appointment Date:12/19/2023 11:00:00 AM Scheduled Provider:DAMION BAILEY Location:[facility] Appointment Type:[facility] Evaluation + Plan note Future Appointments Appointment Date:01/16/2024 02:30:00 PM Scheduled Provider: Location:[facility] Appointment Type:GI OV Consult Appointment Date:12/22/2024 10:30:00 AM Scheduled Provider:DAMION BAILEY Location:[facility] Appointment Type:PC Wellness Medicare [facility] Evaluation + Plan note Future Appointments Appointment Date:12/22/2024 10:30:00 AM Scheduled Provider:DAMION BAILEY Location:[facility] Appointment Type:PC Wellness Medicare [facility] Evaluation + Plan note Future Appointments Appointment Date:05/15/2024 11:00:00 AM Scheduled Provider:SCARLET GONZALES MD Location:[facility] Appointment Type:ENDO IT SECURITY CONSULTANT Appointment Date:12/22/2024 10:30:00 AM Scheduled Provider:DAMION BAILEY Location:[facility] Appointment Type:PC Wellness Medicare [facility] Evaluation + Plan note Future Appointments Appointment Date:06/05/2024 10:30:00 AM Scheduled Provider:SCARLET GONZALES MD Location:[facility] Appointment Type:ENDO OV Appointment Date:12/22/2024 10:30:00 AM Scheduled Provider:DAMION BAILEY Location:[facility] Appointment Type:PC Wellness Medicare Future Scheduled Tests Laboratory* C-Reactive Protein 05/15/24 * Insulin Level Total 05/15/24 * Homocysteine 05/15/24 [facility] Evaluation + Plan note Future Appointments Appointment Date:06/05/2024 10:30:00 AM Scheduled Provider:SCARLET GONZALES MD Location:[facility] Appointment Type:ENDO OV Appointment Date:12/22/2024 10:30:00 AM Scheduled Provider:DAMION BAILEY Location:[facility] Appointment Type:PC Wellness Medicare Diagnostic Tests Pending * .CCLANA by IFA Screen 05/16/24 * Thyroid Stim Immunoglobulin 05/16/24 * ACTH, Plasma 05/16/24 * DANN-65 Autoantibody 05/16/24 * Rheumatoid Factor 05/16/24 * Gliadin Antibody 05/16/24 * Tissue Transglutaminase Ab (IGA) 05/16/24 * Sjogren's Ab, Anti-SS-A/-SS-B 05/16/24 * IGF-1 05/16/24 Future Scheduled Tests Laboratory* C-Reactive Protein 05/15/24 * Insulin Level Total 05/15/24 * Homocysteine 05/15/24 [facility] Evaluation + Plan note Future Appointments Appointment Date:01/12/2025 01:00:00 PM Scheduled Provider: Location:[facility] Appointment Type:[place] Mammogram Screening Bilateral w/ [place] Appointment Date:04/07/2025 11:30:00 AM Scheduled Provider:DAMION BAILEY Location:[facility] Appointment Type:PC OV Appointment Date:07/23/2025 11:00:00 AM Scheduled Provider:SCARLET GONZALES MD Location:[facility] Appointment Type:ENDO OV Future Scheduled Tests Laboratory* N-Telopeptide, Urine 07/19/25 * DAYDAY by IFA Screen 07/19/25 * Calcium Level Ionized 09/05/24 * C-Reactive Protein 07/19/25 * C-Reactive Protein 05/15/24 * Thyroid Stimulating Hormone 07/19/25 * Thyroid Stimulating Hormone 09/05/24 * Free T4 07/19/25 * Free T4 09/05/24 * Rheumatoid Factor 07/19/25 * Calcium Random Urine 07/19/25 * Complete Blood Count 07/19/25 * Complete Blood Count 09/05/24 * Creatinine Random Urine 07/19/25 * Free T3 07/19/25 * Free T3 09/05/24 * Gliadin Antibody 07/19/25 * IgA 07/19/25 * Insulin Level Total 05/15/24 * Tissue Transglutaminase Ab (IGA) 07/19/25 * Vitamin D Level 07/19/25 * Vitamin D Level 09/05/24 * Homocysteine 07/19/25 * Homocysteine 05/15/24 * Complete Metabolic Panel 07/19/25 * Complete Metabolic Panel 09/05/24 Radiology* MA Mammo Screening Bilateral w/ [place] 01/12/25 [facility] Evaluation + Plan note Future Appointments Appointment Date:04/07/2025 11:30:00 AM Scheduled Provider:DAMION BAILEY Location:[facility] Appointment Type:PC OV Appointment Date:07/23/2025 11:00:00 AM Scheduled Provider:SCARLET GONZALES MD Location:[facility] Appointment Type:ENDO OV Future Scheduled Tests Laboratory* N-Telopeptide, Urine 07/19/25 * DAYDAY by IFA Screen 07/19/25 * Calcium Level Ionized 09/05/24 * C-Reactive Protein 07/19/25 * C-Reactive Protein 05/15/24 * Thyroid Stimulating Hormone 07/19/25 * Thyroid Stimulating Hormone 09/05/24 * Free T4 07/19/25 * Free T4 09/05/24 * Rheumatoid Factor 07/19/25 * Calcium Random Urine 07/19/25 * Complete Blood Count 07/19/25 * Complete Blood Count 09/05/24 * Creatinine Random Urine 07/19/25 * Free T3 07/19/25 * Free T3 09/05/24 * Gliadin Antibody 07/19/25 * IgA 07/19/25 * Insulin Level Total 05/15/24 * Tissue Transglutaminase Ab (IGA) 07/19/25 * Vitamin D Level 07/19/25 * Vitamin D Level 09/05/24 * Homocysteine 07/19/25 * Homocysteine 05/15/24 * Complete Metabolic Panel 07/19/25 * Complete Metabolic Panel 09/05/24 [facility] Evaluation noteNo assessment information available [facility] Work Phone: Hospital course Narrative No data available for this section [facility] Hospital Discharge instructions No data available for this section [facility] Progress note No data available for this section [facility] Family History No Family History Records Found Relationship Condition Age at Onset Recorded Date/T renetta sister Coronary artery disease Unknown Malignant neoplasm Unknown Malignant neoplasm of breast Unknown mother Rheumatoid arthritis Unknown Summary Purpose Advance Directives No Advanced Directives Records FoundNo Advanced Directives Records FoundNo Advanced Directives Records Found Additional Source Comments Goals (unrecognized section and content) Goals may be documented in a n alternate section No data available for this section No data available for this section No data available for this section No data available for this section No data available for this section No data available for this section No data available for this section No data available for this section No data available for this section Patient Care team informatio n (unrecognized section and content) Care Team Personnel Name: DAMION BAILEY AGENT CONTRACT CLERK-IMAGING ENGINEER Position: P4 Advanced Flap Presser Member Role: Primary Care Physician Address: Address: [address] [place] [address] Care Team Related Persons Name: JOEL TAYLOR Address: Home [address], [place] [phone] Care Team Personnel Name: DAMION BAILEY AGENT CONTRACT CLERK-IMAGING ENGINEER Position: P4 Advanced Flap Presser Member Role: Primary Care Physician Address: Address: [address] [place] [address] Care Team Related Persons Name: JOEL TAYLOR Address: Home [address], [place] [phone] Care Team Personnel Name: DAMION BAILEY AGENT CONTRACT CLERK-IMAGING ENGINEER Position: P4 Advanced Flap Presser Member Role: Primary Care Physician Address: Address: [address] [place] [address] Care Team Related Persons Name: JOEL TAYLOR Address: Home [address] [phone] Care Team Personnel Name: DAMION BAILEY AGENT CONTRACT CLERK-IMAGING ENGINEER Position: P4 Advanced Flap Presser Member Role: Primary Care Physician Address: Address: [address] [place] [address] Care Team Related Persons Name: JOEL TAYLOR Address: Home [address], [place] [phone] Care Team Personnel Name: DAMION BAILEY AGENT CONTRACT CLERK-IMAGING ENGINEER Position: P4 Advanced Flap Presser Member Role: Primary Care Physician Address: Address: [address] [place] [phone] [place] [address] Care Team Related Persons Name: JOEL TAYLOR Address: Home [address], [place] [phone] Care Team Personnel Name: DAMION BAILEY AGENT CONTRACT CLERK-IMAGING ENGINEER Position: P4 Advanced Flap Presser Member Role: Primary Care Physician Address: Address: [address] [place] [phone] [place] [address] Care Team Related Persons Name: JOEL TAYLOR Address: Home [address], [place] [phone] Care Team Personnel Name: DAMION BAILEY AGENT CONTRACT CLERK-IMAGING ENGINEER Position: P4 Advanced Flap Presser Member Role: Primary Care Physician Address: Address: [address] [place] [phone] [place] [address] Care Team Related Persons Name: JOEL TAYLOR Address: Home [address], [place] [phone] Care Team Personnel Name: DAMION BAILEY AGENT CONTRACT CLERK-IMAGING ENGINEER Position: P4 Advanced Flap Presser Member Role: Primary Care Physician Address: [address] [place] [address] Telecom: Care Team Related Persons Name: JOEL TAYLOR Care Team Personnel Name: DAMION BAILEY AGENT CONTRACT CLERK-IMAGING ENGINEER Position: P4 Advanced Flap Presser Member Role: Primary Care Physician Address: [address] [place] [address] Telecom: Care Team Related Persons Name: JOEL TAYLOR INFORMATION SOURCE (unrecogn ized section and content) DATE CREATED AUTHOR 03/04/2024 [facility] ([place]) DATE CREATED AUTHOR AUTHOR'S ORGANIZ ATION 10/14/2024 [facility] DATE CREATED AUTHOR AUTHOR'S ORGANIZ ATION 01/27/2025 [facility] FOR RECORDS PERTAINING TO PATIENTS WHO ARE OR HAVE BEEN ENROLLED IN A CHEMICAL DEPENDENCY/SUBSTANCEABUSE PROGRAM, SOME INFORMATION MAY BE OMITTED. This clinical summary was aggregated from multiple sources. Caution should be exercised in using it in the provision of clinical care. This summary normalizes information from multiple sources, and as a consequence, information in this document may materially change the coding, format and clinical context of patient data. In addition, data may be omitted in some cases. CLINICAL DECISIONS SHOULD BE BASED ON THE PRIMARY CLINICAL RECORDS. [facility] [facility]. provides no warranty or guarantee of the accuracy or completeness of information in this document.
[2025-02-06 11:08] LABS: ANTINUCLEAR ANTIBODIES DIRECT Negative (Negative)
[2025-02-06 12:08] LABS: CCP IgG Antibodies > 250 units (0-19)
== END | disposition home or self-care (01) ==
LOC: MTLAB 14:25
PROVIDERS: PCP Nurse Practitioner Adult Health; Referring Provider Internal Medicine Rheumatology; Visit Provider Internal Medicine Rheumatology
DX: M05.70 Rheumatoid arthritis with rheumatoid factor of unspecified site without organ or systems involvement (principal); K90.0 Celiac disease; H93.13 Tinnitus, bilateral; G25.0 Essential tremor; Z79.899 Other long term (current) drug therapy
CPT/HCPCS: 36415; 80053; 85025; 85652; 86038; 86140; 86200; 86431; 86706; 86803; 87340

== ENCOUNTER → 2025-03-02 | Outpatient (CLI) | payer MEDICARE, SELFPAY ==
[2025-03-05 10:08] LABS: G6PD Quant Test 265 (127-427); Red Blood Cell Count Test/G6PD 4.62 x10E6/uL (3.77-5.28)
== END | disposition home or self-care (01) ==
LOC: MTLAB 15:02
PROVIDERS: PCP Nurse Practitioner Adult Health; Referring Provider Internal Medicine Rheumatology; Visit Provider Internal Medicine Rheumatology
DX: M05.70 Rheumatoid arthritis with rheumatoid factor of unspecified site without organ or systems involvement (principal); Z79.899 Other long term (current) drug therapy
CPT/HCPCS: 36415; 82955

== ENCOUNTER → 2025-05-06 | Outpatient (CLI) | payer MEDICARE, SELFPAY ==
[2025-05-06 15:17] LABS: Hematocrit 38.3 % (37-47); Hemoglobin 12.6 g/dL (12.0-15.0); Immature Granulocytes Count 0.030 X10^3/uL (0.0-0.0); Mean Corp Hgb Conc 32.9 g/dL (32-36); Mean Corpuscular Volume 89.3 fL (81-99); Mean Platelet Vol. 11.0 fl (6.2-12.0); NRBC Flagged by Analyzer 0 % (0-5); Platelet Count 297 K/mm3 (150-450); RBC Distribution Width CV 14.0 % (11.6-14.6); RBC Distribution Width SD 45.5 fl (35.1-43.9); Red Blood Count 4.29 M/mm3 (4.2-5.4); White Blood Count 6.7 K/mm3 (4.4-11.0)
[2025-05-06 16:27] LABS: AST(SGOT) 32 U/L (<=31); Alanine Aminotransfer ALT/SGPT 25 U/L (<=34); Albumin, Serum 4.2 g/dL (3.4-4.8); Alkaline Phosphatase 39 U/L (35-104); Anion Gap 12 (5-15); BUN 16 mg/dL (4-19); BUN/Creat Ratio 20.3 RATIO (10-20); Calcium,Total 9.4 mg/dL (7.6-11.0); Carbon Dioxide 24.0 mmol/L (21.0-32.0); Chloride 96 mmol/L (98-108); Globulin 2.7 g/dL (2.2-4.2); Glucose 71 mg/dL (70-99); Potassium 4.0 mmol/L (3.3-5.1)
== END | disposition home or self-care (01) ==
LOC: MTLAB 11:36
PROVIDERS: PCP Nurse Practitioner Adult Health; Referring Provider Internal Medicine Rheumatology; Visit Provider Internal Medicine Rheumatology
DX: M05.70 Rheumatoid arthritis with rheumatoid factor of unspecified site without organ or systems involvement (principal); K90.0 Celiac disease; Z79.899 Other long term (current) drug therapy
CPT/HCPCS: 36415; 80053; 85025

== ENCOUNTER → 2025-06-12 | Outpatient (CLI) | payer MEDICARE, SELFPAY ==
[2025-06-12 15:13] LABS: Hematocrit 37.9 % (37-47); Hemoglobin 12.7 g/dL (12.0-15.0); Immature Granulocytes Count 0.010 X10^3/uL (0.0-0.0); Mean Corp Hgb Conc 33.5 g/dL (32-36); Mean Corpuscular Volume 89.4 fL (81-99); Mean Platelet Vol. 11.0 fl (6.2-12.0); NRBC Flagged by Analyzer 0 % (0-5); Platelet Count 305 K/mm3 (150-450); RBC Distribution Width CV 13.4 % (11.6-14.6); RBC Distribution Width SD 44.0 fl (35.1-43.9); Red Blood Count 4.24 M/mm3 (4.2-5.4); White Blood Count 5.1 K/mm3 (4.4-11.0)
[2025-06-12 15:17] LABS: AST(SGOT) 28 U/L (<=31); Alanine Aminotransfer ALT/SGPT 21 U/L (<=34); Albumin, Serum 4.2 g/dL (3.4-4.8); Alkaline Phosphatase 40 U/L (35-104); Anion Gap 11 (5-15); BUN 15 mg/dL (4-19); BUN/Creat Ratio 19.9 RATIO (10-20); Calcium,Total 9.2 mg/dL (7.6-11.0); Carbon Dioxide 23.2 mmol/L (21.0-32.0); Chloride 100 mmol/L (98-108); Globulin 2.6 g/dL (2.2-4.2); Glucose 99 mg/dL (70-99); Potassium 3.8 mmol/L (3.3-5.1)
== END | disposition home or self-care (01) ==
LOC: MTLAB 13:03
PROVIDERS: PCP Nurse Practitioner Adult Health; Referring Provider Internal Medicine Rheumatology; Visit Provider Internal Medicine Rheumatology
DX: M05.70 Rheumatoid arthritis with rheumatoid factor of unspecified site without organ or systems involvement (principal); Z79.899 Other long term (current) drug therapy
CPT/HCPCS: 36415; 80053; 85025

== ENCOUNTER → 2025-08-19 | Outpatient (CLI) | payer MEDICARE, SELFPAY ==
[2025-08-19 12:25] LABS: Hematocrit 38.0 % (37-47); Hemoglobin 13.0 g/dL (12.0-15.0); Immature Granulocytes Count 0.010 X10^3/uL (0.0-0.0); Mean Corp Hgb Conc 34.2 g/dL (32-36); Mean Corpuscular Volume 93.4 fL (81-99); Mean Platelet Vol. 10.4 fl (6.2-12.0); NRBC Flagged by Analyzer 0 % (0-5); Platelet Count 312 K/mm3 (150-450); RBC Distribution Width CV 13.2 % (11.6-14.6); RBC Distribution Width SD 45.0 fl (35.1-43.9); Red Blood Count 4.07 M/mm3 (4.2-5.4); White Blood Count 6.0 K/mm3 (4.4-11.0)
[2025-08-19 12:57] LABS: AST(SGOT) 27 U/L (<=31); Alanine Aminotransfer ALT/SGPT 24 U/L (<=34); Albumin, Serum 4.3 g/dL (3.4-4.8); Alkaline Phosphatase 48 U/L (35-104); Anion Gap 10 (5-15); BUN 15 mg/dL (4-19); BUN/Creat Ratio 18.2 RATIO (10-20); Calcium,Total 9.2 mg/dL (7.6-11.0); Carbon Dioxide 23.4 mmol/L (21.0-32.0); Chloride 98 mmol/L (98-108); Globulin 2.7 g/dL (2.2-4.2); Glucose 86 mg/dL (70-99); Potassium 4.6 mmol/L (3.3-5.1)
== END | disposition home or self-care (01) ==
LOC: MTLAB 10:22
PROVIDERS: PCP Nurse Practitioner Adult Health; Referring Provider Internal Medicine Rheumatology; Visit Provider Internal Medicine Rheumatology
DX: M05.70 Rheumatoid arthritis with rheumatoid factor of unspecified site without organ or systems involvement (principal); Z79.899 Other long term (current) drug therapy
CPT/HCPCS: 36415; 80053; 85025